=== PATIENT | male | born 1945 | race Hispanic/Latino ===

== ENCOUNTER 2018-12-03 20:06 | Inpatient (IN) | payer MEDICARE, MEDICAID ==
[~2018-12-03 20:06] MED LIST: ISOVUE-370 76%-LOCM 1 ML ONE
[2018-12-03] MEDS ORDERED: methylPREDNISolone Sod Succ/PF 125 MG/2 ML VIAL ONE (20:30)
[2018-12-03] MEDS ORDERED: Piperacillin/Tazobactam 4.5 GM VIAL ONE (20:30)
[2018-12-03 20:39] LABS: Base Excess-Venous 2.8 mmol/L (0 (+/- 2.5)); Bicarbonate (HCO3v) 27.8 mmol/L (22.0-29.0); Calcium, Ionized 1.08 mmol/L (1.12-1.32); Hemoglobin - Calc 15.5 g/dL (12.0-18.0); Potassium 4.4 mmol/L (3.4-4.7); T. Carbon Dioxide 29.2 mmol/L (1.0-85.0); pH (Venous) 7.419 (7.35-7.45); vO2 Saturation-calc 62.3 % (94-98)
--- NOTE | 2018-12-03 20:45 | RAD ---
AP VIEW CHEST: 12/03/18 HISTORY: Dyspnea. AP view chest is obtained on 12/03/18. Comparison made to previous exam from 11/29/04. AP view chest demonstrates the lungs to be well aerated. No evidence of active intrathoracic disease seen. No evidence of effusions, pneumonia or pneumothorax seen. IMPRESSION: Unremarkable AP view chest. POS: [facility]
[2018-12-03 20:50] LABS: Mean Corpuscular HGB CONC 34.5 g/dL (32.0-36.0); Mean Corpuscular Hemoglobin 34.7 pg (27.0-31.0); RBC Distribution Width 13.7 % (11.5-14.5); Red Blood Cell (RBC) Count 4.61 mill/uL (4.70-6.10)
[2018-12-03 21:05] LABS: #Lymphocytes 0.8 thou/uL (1.20-3.40); #Monocytes 0.8 thou/uL (0.11-0.59); #Neutrophils 7.3 thou/uL (1.40-6.50); %Basophils 0.4 % (0.0-1.0); %Eosinophils 0.2 % (0.0-10.0); %Lymphocytes 8.5 % (21.0-51.0); %Monocytes 9.1 % (0.0-10.0); %Neutrophils 81.7 % (42.0-75.0); Mean Platelet Volume 7.1 fL (7.4-10.4); Platelet Count 83 thou/uL (130-400); Platelet Morphology Comment Appears Decreased
[2018-12-03 21:08] LABS: ALT (SGPT) 36 U/L (8-55); AST (SGOT) 46 U/L (5-34); Albumin 3.8 g/dL (3.4-4.8); Alkaline Phosphatase 110 U/L (40-150); Anion Gap 12 mmol/L (10-20); BUN (Urea Nitrogen) 11 mg/dL (8.4-25.7); Bilirubin, Total 2.9 mg/dL (0.2-1.2); Calc. Creatinine Clearance 0 mL/min (70-130); Calcium 9.4 mg/dL (7.8-10.44); Carbon Dioxide 27 mmol/L (23-31); Chloride 101 mmol/L (98-107); Estimated GFR-MDRD Greater than 90; Globulin 3.3 g/dL (2.4-3.5); Glucose 109 mg/dL (83-110); Lipase 59 U/L (8-78); Potassium 4.3 mmol/L (3.5-5.1); Protein, Total 7.1 g/dL (5.8-8.1); Sodium 136 mmol/L (136-145)
[2018-12-03 21:29] LABS: CKMB 0.7 ng/mL (0-6.6)
--- NOTE | 2018-12-03 22:13 | CT ---
CONTRAST ENHANCED CT IMAGES ABDOMEN AND PELVIS 12/03/18 HISTORY: Shortness of breath. Abdominal pain. Contrast enhanced CT images of the abdomen and pelvis is obtained. Comparison made to exam from . CT images demonstrate atrophy and nodularity of the liver compatible with cirrhosis. Marked splenomeg nazario is seen. The spleen has three dimensional measurements of 7.9 x 18.8 x 15.4 cm. The pancreas is unremarkable. Adrenal glands and kidneys are unremarkable. There is abdominal aortic stent graft in place. The inner lumen of the stent is patent. Flow is seen in the SMA, celiac and renal arteries. No definite evidence of endovascular stent graft leak is seen. The right and left common iliac artery stent limbs are patent. The external and internal iliac arteries bilaterally are patent. No dilated loops of small bowel seen. There is abnormal thickening in the cecum and ascending colon c oncerning for colitis. Descending and sigmoid colonic diverticulosis is also present. Cortical hypodense areas seen in both kidneys compatible with renal cysts. IMPRESSION: 1. Splenomegaly with cirrhosis. 2. Abnormal thickening of the proximal colon compatible with colitis. POS: [facility]
[2018-12-03] MEDS ORDERED: Morphine 4 MG/ML VIAL ONE (22:21)
[2018-12-03] MEDS ORDERED: Ondansetron PF 4 MG/2 ML Vial ONE (22:21)
[2018-12-03 23:00] LABS: Bilirubin Negative (Negative); Blood, Urine Moderate (Negative); Clarity CLEAR (Clear); Glucose, Urine (Dipstick) Negative (Negative); Leukocyte Negative (Negative); Nitrite Negative (Negative); Protein, Urine (Dipstick) Negative (Neg-Trace)
[2018-12-03 23:01] LABS: Bacteria/HPF None Seen HPF (None Seen); Hyaline Casts/LPF 0-3 HYALINE CAST LPF (0-3 Hyaline); Pathc Cast-AUWi Flag 0.14 (0-2.49); Squamous Epithelial None Seen HPF (0-3); WBC/HPF 0-3 HPF (0-3)
[2018-12-03 23:04] LABS: Specific Gravity, Urine 1.048 (1.002-1.036)
[2018-12-04 00:16] LABS: Troponin I 0.022 ng/mL (< 0.028)
[2018-12-04 00:51] VITALS: BMI 29.4
[2018-12-04] MEDS ORDERED: Morphine 4 MG/ML VIAL SLOW IVP PRN (01:55)
[2018-12-04] MEDS ORDERED: HYDROcodone/Acetaminophen 5/325 mg Tablet PO PRN (01:56)
[2018-12-04] MEDS ORDERED: Acetaminophen 325 MG TAB PO PRN (01:56)
[2018-12-04] MEDS ORDERED: hydrALAZINE 20 MG/ML VIAL SLOW IVP PRN (01:58)
[2018-12-04] MEDS ORDERED: Dextrose 50% Abboject 50 ML SYRINGE IVP PRN (02:00)
[2018-12-04] MEDS ORDERED: Sodium Chloride 0.9% 1,000 ML IV SCH (02:00)
[2018-12-04] MEDS ORDERED: Dextrose 5% in Water 1,000 ML IV PRN (02:00)
[2018-12-04] MEDS: Vancomycin HCl 1.5 GM in Sodium Chloride 0.9% 250 ML 300 ML IVPB SCH ×2 (02:24→15:21)
[2018-12-04 02:48] LABS: #Lymphocytes 0.4 thou/uL (1.20-3.40); #Monocytes 0.1 thou/uL (0.11-0.59); #Neutrophils 6.8 thou/uL (1.40-6.50); %Eosinophils 0.1 % (0.0-10.0); %Lymphocytes 5.3 % (21.0-51.0); %Monocytes 1.1 % (0.0-10.0); %Neutrophils 93.5 % (42.0-75.0); Hemoglobin 14.8 g/dL (14.0-18.0); Mean Corpuscular HGB CONC 34.2 g/dL (32.0-36.0); Mean Corpuscular Hemoglobin 34.6 pg (27.0-31.0); Mean Platelet Volume 7.1 fL (7.4-10.4); Platelet Count 66 thou/uL (130-400); RBC Distribution Width 13.5 % (11.5-14.5); Red Blood Cell (RBC) Count 4.27 mill/uL (4.70-6.10); White Blood Cell (WBC) Count 7.3 thou/uL (4.8-10.8)
--- NOTE | 2018-12-04 03:33 | HP ---
PRIMARY CARE PHYSICIAN: Dr. Diaz. CHIEF COMPLAINT: Shortness of breath and abdominal pain. HISTORY OF PRESENT ILLNESS: The patient is a 73-year-old male with past medical history of diabetes, hypertension, COPD, and diverticulitis, who presents to the emergency department for worsening of his abdominal pain and shortness of breath. The patient's shortness of breath has been going on for number of years due to his COPD but for the past few weeks, it has been worse. The patient reports that he uses Symbicort [employer] as needed at home. The patient uses oxygen almost half of the time during the day. The patient denies being on steroid recently. The patient reports that the recently at outside hospital, he was being treated for a stomach infection for which he was taking levofloxacin and Augmentin. The patient reports that his abdominal pain is mainly left sided, but at this point, it is well controlled. The patient was accompanied by his . The patient denies that he is currently smoking. He has not smoked for a number of periods. The patient denies any history of heart problems. PAST MEDICAL HISTORY: 1. Diabetes. 2. Hypertension. 3. High cholesterol. 4. Cardiac stents. PAST SURGICAL HISTORY: Stomach surgery, unable to specify what kind of surgery. SOCIAL HISTORY: . Denies alcohol. Ex-smoker and illicit drugs. ALLERGIES: NO KNOWN ALLERGIES FOR DRUGS. MEDICATIONS: He is on; 1. Lisinopril. 2. Pravastatin. 3. Metformin. 4. Levaquin. 5. Augmentin. FAMILY HISTORY: Mother had heart problems. PHYSICAL EXAMINATION: VITAL SIGNS: Blood pressure 158/69, respiratory rate 24, temperature 98 Fahrenheit, pulse 87, and O2 sat 93% on 2 L nasal cannula. GENERAL: Alert and oriented. HEAD: Minor bruise noted on the forehead. The patient reported that he got this bruise while a tool fell on his head. He denied any loss of consciousness. Eyes, equal and reactive to light. ENT: Normal pharynx. Oral examination normal. NECK: No lymphadenopathy or JVD noted. RESPIRATORY: Bilateral scattered expiratory wheezes noted. CARDIOVASCULAR: Regular rate and rhythm. No murmur, rubs, or gallops. ABDOMEN: Soft. Bowel sounds positive, discomfort with a palpitations of left upper quadrant and left lower quadrant, otherwise physical examination within normal limit. EXTREMITIES: No edema noted. NEUROLOGICAL: Alert and oriented. PSYCHIATRIC: No mood disorders noted. SKIN: Abrasion and well-healed wound noted on the forehead. REVIEW OF SYSTEMS: CONSTITUTIONAL: Negative for fever or chills. EYES: Negative for vision changes. HEENT: Negative for swelling in the legs or dysphagia. CARDIOVASCULAR: Negative for chest pain. RESPIRATORY: Positive for shortness of breath. : Negative for dysuria. GI: Positive for abdominal pain. MUSCULOSKELETAL: Negative for lower extremity edema. SKIN: No rashes. NEUROLOGICAL: No loss of consciousness noted. IMAGING STUDY: 1. CT of abdomen positive for colitis. 2. Chest x-ray negative for acute abnormality. 3. EKG negative for ST segment elevation. LABORATORY DATA: Labs reviewed. CBC is significant for platelets of 83, otherwise within normal limits. BNP within normal limits. T.bili 2.9. Troponin 0.03, otherwise labs unremarkable. ASSESSMENT/PLAN: 1. Colitis, likely unresolved colitis from previous episode. The patient was treated with Levofloxacin and Augmentin without resolution. We will start vancomycin and zosyn, clear liquid diet, advance as tolerated, pain control medications p.r.n., nausea control medications p.r.n., cultures. 2. Chronic obstructive pulmonary disease exacerbation. The patient was treated with Solu-Medrol in the ER and also was given DuoNebs. The patient uses oxygen at home. Continue DuoNeb p.r.n., prednisone 40 mg 4 more doses. DuoNebs p.r.n. Continue O2. RT to assess and treat. 3. Thrombocytopenia, likely due to cirrhosis. Avoid pharmacological DVT prophylaxis. We will only use SCDs. 4. Hyperbilirubinemia, likely due to cirrhosis. The patient did not seem to be in acute exacerbation at this point. We will continue to monitor clinically, AM LFTs 5. Hypertension. Continue home medications plus p.r.n. hydralazine. 6. Coronary artery disease. Continue pravastatin and will not start aspirin at this point given thrombocytopenia. 7. Diabetes. We will hold metformin at this point. SSI low-scale. Hypoglycemia protocol. 8. Normal saline 50 mL per hour for 1 day. 9. PT/OT. 10. Deep venous thrombosis prophylaxis, SCD. 11. Code status, full code. 12. Medical [id number], . 13. Cirrhosis noted on the CT scan. The patient is not in acute exacerbation at this point. LFTs in the morning, ultrasound of liver and acute hepatitis panel. Job ID: [id number] MTDD
[2018-12-04 03:56] LABS: ALT (SGPT) 34 U/L (8-55); AST (SGOT) 38 U/L (5-34); Albumin 3.6 g/dL (3.4-4.8); Alkaline Phosphatase 96 U/L (40-150); Anion Gap 12 mmol/L (10-20); BUN (Urea Nitrogen) 16 mg/dL (8.4-25.7); Bilirubin, Total 2.3 mg/dL (0.2-1.2); Calc. Creatinine Clearance 101 mL/min (70-130); Calcium 8.8 mg/dL (7.8-10.44); Carbon Dioxide 26 mmol/L (23-31); Chloride 102 mmol/L (98-107); Estimated GFR-MDRD Greater than 90; Glucose 261 mg/dL (83-110); Potassium 4.2 mmol/L (3.5-5.1); Protein, Total 6.4 g/dL (5.8-8.1); Sodium 136 mmol/L (136-145)
[2018-12-04 03:57] LABS: Troponin I 0.015 ng/mL (< 0.028)
[2018-12-04 04:16] LABS: HBCM Index 0.05 S/CO (0-0.79); HBSAg Index 0.28 S/CO (0-0.99); Hep A IgM AB Non-Reactive (NonReactive); Hep A IgM S/CO 0.14 S/CO (0-0.79); Hep B Surf Ag Non-Reactive S/CO (NonReactive); Hep C IgG Ab Non-Reactive (NonReactive); Hep C Index 0.09 S/CO (0-0.79); Hepatitis B Core IgM Abs Non-Reactive (NonReactive)
[2018-12-04 04:29] LABS: Bilirubin, Direct 1.2 mg/dL (0.1-0.3)
[2018-12-04] MEDS: Piperacillin/Tazobactam 3.375 GM in Sodium Chloride 0.9% 100 ML IVPB SCH ×3 (05:49→21:02)
[2018-12-04] MEDS: HumaLOG 300 UNITS/3 ML VIAL SC PRN ×3 (06:00→18:17)
[2018-12-04] MEDS: Mometasone/Formoterol 120 PUFF INHALER INH SCH (06:51)
[2018-12-04] MEDS: predniSONE 20 MG TAB PO SCH (09:31)
[2018-12-04] MEDS: Lisinopril 20 MG TAB PO SCH (09:31)
--- NOTE | 2018-12-04 10:23 | PDOC.PN ---
- Subjective Encounter Start Date: 12/04/18 Encounter Start Time: 10:21 Feeling better overall. Breathing is improved. Denies any new abdominal symptoms. He does have some chronic diffuse abdominal symptoms with low grade discomfort for years. Breathing hard makes it worse. Reports some urinary incontinence at times with SOB and with exertion. Had a colonoscopy in 2004. Has nebs at home and does use them. Does not have a Pulmonolgist. - Objective Vital Signs & Weight: Vital Signs (12 hours) Temp Pulse Resp BP BP Pulse Ox 12/04/18 09:31 170/72 H 12/04/18 07:46 98.2 F 70 22 H 170/72 H 95 12/04/18 06:56 95 12/04/18 06:51 69 16 95 12/04/18 02:13 98.0 F 80 22 H 159/70 H 100 12/04/18 00:22 98.0 F 87 24 H 158/69 H 93 L Weight Weight 193 lb 9.6 oz I&O: 12/03/18 12/04/18 12/05/18 06:59 06:59 06:59 Intake Total 490 100 Output Total 250 Balance 240 100 Result Diagrams: 12/04/18 02:32 12/04/18 02:32 Additional Labs: Accuchecks 12/04/18 05:51 POC Glucose 266 H Phys Exam - Physical Examination Constitutional: NAD Respiratory: no rales, no rhonchi Diminished BS throughout. Basilar wheezes. Cardiovascular: RRR, no significant murmur, no rub Gastrointestinal: soft Mild diffusely tender. No localization. Musculoskeletal: no edema Psychiatric: normal affect, A&O x 3 Deviation from normal: Lesion right forehead lesion. (Had injury, getting better) Dx/Plan (1) COPD (chronic obstructive pulmonary disease) Status: Acute (2) Diabetes mellitus Code(s): E11.9 - TYPE 2 DIABETES MELLITUS WITHOUT COMPLICATIONS Status: Acute (3) Hypertension Code(s): I10 - ESSENTIAL (PRIMARY) HYPERTENSION Status: Acute (4) HLD (hyperlipidemia) Code(s): E78.5 - HYPERLIPIDEMIA, UNSPECIFIED Status: Acute (5) Colitis Code(s): K52.9 - NONINFECTIVE GASTROENTERITIS AND COLITIS, UNSPECIFIED Status : Acute (6) Cirrhosis Code(s): K74.60 - UNSPECIFIED CIRRHOSIS OF LIVER Status: Acute (7) Splenomegaly Code(s): R16.1 - SPLENOMEGALY, NOT ELSEWHERE CLASSIFIED Status: Acute - Plan * Appears to be primarily having issues with the COPD. Will consult Pulm. Doing better today for sure. COntinue nebs and steroids. * Has evidence of colitis on CT, but does not have any symptoms. No pain, fever or diarrhea. On abx now. Will likely not need to stay on those. * Consult GI given the findings of CT and the cirrhosis, although it appears to be stable. Has hx of EtOH.
[2018-12-04] MEDS ORDERED: Cyclopentolate 1% Opth Drop 2 ML BOT ONE (12:07)
[2018-12-04] MEDS ORDERED: Phenylephrine 2.5% Ophth Soln 5 ML BOT ONE (12:08)
[2018-12-04] MEDS ORDERED: ALPRAZolam 0.25 MG TAB PO SCH (17:45)
[2018-12-04] MEDS: Atorvastatin Calcium 10 MG TAB PO SCH (20:52)
--- NOTE | 2018-12-05 04:58 | CON ---
DATE OF CONSULTATION: 12/04/2018 SERVICE: Pulmonary Medicine. REASON FOR CONSULT: Chronic lung disease. HISTORY OF PRESENT ILLNESS: The patient is a 73-year-old male with past medical history significant for chronic lung disease. So far as he is aware, his trouble started about 7 or 8 years ago. 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 He got exposed to a lot of sand. He got very violently sick and since then, his breathing has been off. He has had a slow progressive increase in shortness of breath over the past 7 years. Over the last week, however, he ended up with increasing cough and congestion, he was having green sputum which is typically white. He was not having any fevers or chills or night sweats. He has had a 50 pounds weight loss over the past year. He was also having increasing abdominal swelling, and very tender belly. This has been present for several months now. It is not a hard pain, or a sharp pain. It is really more of an exquisite sensitivity to the touch. He has not had any changes in his bowel movements. He denies having any fevers, diarrhea, or constipation. He does not have any hot, red, swollen joints or arthralgias. He does note having bad reflux disease. He has been getting much worse over the past couple of months. PAST MEDICAL HISTORY: 1. Type 2 diabetes mellitus. 2. Hypertension. 3. Dyslipidemia. 4. Chronic hypoxic respiratory failure, on home oxygen. 5. COPD. 6. Diverticulosis with history of diverticulitis. 7. Coronary artery disease with history of PCI. PAST SURGICAL HISTORY: Stomach surgery, not clear on what type. SOCIAL HISTORY: He has a 40 pack-year history of smoking. He smoked on and off from point where he was 7 until he was 49 years old. He stopped at that point roughly 20 years ago. He denies any alcohol or illicit drug use. He is . He has no exposure to chemicals, dust, asbestos, or tuberculosis outside of that one event when he was working with his brother 8 years ago. FAMILY HISTORY: Noncontributory. He denies any family history of lung cancers or lung diseases. ALLERGIES: NO KNOWN DRUG ALLERGIES. MEDICATIONS: List of the patient's inpatient medications were reviewed. No specific adjustments were made at this point. REVIEW OF SYSTEMS: General, head, ears, eyes, nose, throat, cardiovascular, respiratory, GI, , musculoskeletal, neurologic, and skin is negative except as mentioned in the HPI. PHYSICAL EXAMINATION: VITAL SIGNS: Afebrile, pulse 77, blood pressure 194/91, respirations 23, saturation 96% on 2 L nasal cannula. GENERAL: The patient is awake and alert, in no apparent distress. LUNGS: Reduced air entry with a prolonged expiratory phase. Both wheezing and dependent crackles are noted. There are no rhonchi. HEART: Normal rate. Regular. ABDOMEN: Soft. No tenderness to palpation is really noted. He does have shifting dullness. He does not have any rebound or guarding, and bowel sounds are present. MUSCULOSKELETAL: No cyanosis or clubbing. There is trace to 1+ pitting in the bilateral lower extremities. NEUROLOGIC: Grossly nonfocal. LABORATORY DATA: WBC 7.3, hemoglobin 14.8, platelets 66,000 and downtrending. pH 7.4, pCO2 43, PO2 32 on a VBG. Basic metabolic profile and liver function studies are essentially unremarkable. His total bilirubin however is 2.3. AST is minimally elevated, but downtrending at 38. His BNP is slightly elevated at 157. Urinalysis is unremarkable. Beta hydroxybutyric acid, and hepatitis serologies are all negative. Respiratory cultures are unremarkable to date. Many white blood cells were identified, but there were very few organisms otherwise seen, 5-10 epithelial cells were collected. Influenza A and B are unremarkable. Urine culture, and blood cultures x2 are negative to date. IMAGIN. CT of the abdomen and pelvis demonstrates splenomegaly and findings consistent with cirrhosis. Central bronchiectasis is evident. There is interstitial prominence throughout the bilateral lung gaffney and they seem to be a little bit worse at the left base compared to the right. There is very subtle findings consistent with possible emphysema. 2. Chest x-ray demonstrates prominence in interstitium. This is displayed more clearly in the bibasilar region. Cardiac silhouette is slender. There is a little contour to the bilateral diaphragm. ASSESSMENT: 1. [id number] hypoxic respiratory failure. 2. Chronic obstructive pulmonary disease with acute exacerbation. 3. Cirrhosis, minimally decompensated. DISCUSSION AND PLAN: We will introduce some spironolactone, and Lasix. We will diurese the patient until he gets little closer to euvolemia. This is likely complicating his very chronic lung disease. The clubbing is interesting in the bilateral fingers. Hypoxemia associated with COPD does not create these findings. As such, I am interested in whether or not he may have some degree of interstitial process or malignancy. We will continue on antibiotics, nebulized medications, and steroids for the time being. In the outpatient setting, once his lungs are optimized, we will be interested in pursuing pulmonary function studies and advanced imaging studies of the lungs to see whether or not there is any merit to this idea. He is feeling better at this point, so we are going to continue our current course of action. Pulmonary Critical Care will continue to follow along while he remains inhouse. 70 minutes have been devoted to this patient in various activities. I personally reviewed all imaging studies and laboratory data noted within this document. For fifty percent of this time, I was interacting with the patient at the bedside or coordinating care with the care team. For the remainder of the time I was immediately available to the patient in the hospital unit. Job ID: [id number] [facility] H[facility]ITALL[facility]awn
[2018-12-05] MEDS: Piperacillin/Tazobactam 3.375 GM in Sodium Chloride 0.9% 100 ML IVPB SCH ×3 (05:48→21:06)
--- NOTE | 2018-12-05 05:55 | CON ---
DATE OF CONSULTATION: 12/04/2018 CHIEF COMPLAINT: Trouble breathing. HISTORY OF PRESENT ILLNESS: Mr. Oropeza is a 73-year-old man who came to the hospital with shortness of breath. He has COPD, has been on home oxygen and recently has taken steroids and antibiotics for that. During the evaluation in the emergency room, he did report chronic lower abdominal pain. He has been having some aching of right lower quadrant abdominal discomfort for the last 8 months or so. He states that he had trouble having bowel movements a few years ago and he had some type of surgical procedure that help that. He had presented with left lower quadrant pain prior to that. He has had no vomiting. He has had some nausea yesterday, which is new. He had a large normal bowel movement yesterday morning and then 1 liquidy bowel movement yesterday afternoon. He has had no blood in the stool. No black stools. While he was in the ER, he had a CT scan that showed some thickening in the cecum and ascending colon. He had colonoscopy by Dr. Gilbert in 2004 with a tubulovillous adenoma removed at that time. States that he had a followup colonoscopy 4 to 5 years ago in [place], which he states was normal. He was diagnosed with cirrhosis of the liver a few years ago in [place], but is unaware of the cause of the cirrhosis. PAST MEDICAL HISTORY: COPD on home oxygen, cirrhosis of the liver, diabetes mellitus, hypertension, hyperlipidemia, coronary artery disease, status post stent. PAST SURGICAL HISTORY: Aortic stent for abdominal aortic aneurysm. He has had some type of abdominal surgery. This sounds like it was laparoscopic, but it is unclear what this might have been. He has had a colon polyp resected previously. FAMILY HISTORY: Negative for GI malignancy or cirrhosis. SOCIAL HISTORY: He quit smoking years ago. He quit alcohol 11 years ago. He drank 12 pack a week prior to that, and denies more significant use. ALLERGIES: NO KNOWN DRUG ALLERGIES. MEDICATIONS: Prior to admission, 1. Lisinopril. 2. Pravastatin. 3. Metformin. 4. Levofloxacin. 5. Augmentin. REVIEW OF SYSTEMS: Negative x10 systems reviewed except as stated in history of present illness. PHYSICAL EXAMINATION: VITAL SIGNS: Temperature 97.7, pulse 77, blood pressure 194/91. GENERAL: He is in no acute distress. Alert and oriented x3. HEENT: Eyes have no scleral icterus. Oropharynx is clear without lesions. No cervical or supraclavicular lymphadenopathy. LUNGS: Clear to auscultation bilaterally. HEART: Regular rate and rhythm without murmur. LUNGS: Bilateral expiratory diffuse wheezes. ABDOMEN: Soft, nontender, and nondistended. Bowel sounds are present. EXTREMITIES: No lower extremity edema. LABORATORY DATA: White blood cell count 7.3, hemoglobin 14.8, platelets 66. Creatinine 0.8, bilirubin 2.3, AST 38, ALT 34, alkaline phosphatase 96, albumin 3.6, lipase 59. Hepatitis C antibody is negative. Hepatitis B surface antigen is negative. Hepatitis B core IgM is negative. Hepatitis A IgM is negative. IMPRESSION: 1. Chronic lower abdominal pain. He has no significant tenderness on exam now, and he states his pain is really unchanged from baseline over the last several months. He did have 1 liquidy stool yesterday and the CT scan showed some thickening in the ascending and cecum. He does not appear to have an acute process at this time. However, it is possible that he could have infectious colitis or even ischemic colitis. If he has any further bowel movements or diarrhea, we will run stool studies on that. 2. Cirrhosis of the liver. The cause of this is not yet determined. RECOMMENDATIONS: 1. We will send additional labs to evaluate other causes of liver disease. Viral hepatitis acute panel is negative. He may have more significant alcohol use in the past as a source for the cirrhosis. 2. He should eventually undergo upper endoscopy for varices screening. Also, colonoscopy for evaluation of the thickening in the right colon would be indicated. Given that he is admitted with worsening respiratory symptoms and has recently been on steroids for this. We will delay endoscopy and this can be done when his lung status is optimized. That can also potentially be done as an outpatient. 3. Check alpha fetoprotein for hepatoma screening. He did have CT of the abdomen and pelvis. However, this is not specifically for timing of contrast for liver lesion, so I will request an ultrasound on the liver as well. 4. He should be vaccinated for hepatitis A and hepatitis B if he is not immune. We will check labs to check immunity now. Job ID: [id number]
[2018-12-05 06:45] LABS: Hep B Surf AB Non-Reactive (NonReactive)
[2018-12-05] MEDS: Mometasone/Formoterol 120 PUFF INHALER INH SCH (07:20)
[2018-12-05] MEDS: Spironolactone 25 MG TAB PO SCH (08:07)
[2018-12-05] MEDS: Furosemide 40 MG TAB PO SCH (08:07)
[2018-12-05] MEDS: Lisinopril 20 MG TAB PO SCH (08:07)
[2018-12-05] MEDS: predniSONE 20 MG TAB PO SCH (08:07)
--- NOTE | 2018-12-05 08:25 | ULT ---
HEPATIC ULTRASOUND WITH DUPLEX EVALUATION: Date: 12/05/18 INDICATION: Evaluate for hepatoma. TECHNIQUE: Cruz scale, color Doppler, and duplex evaluation was performed of the liver. Sonographic evaluation w as also performed of the aorta, kidneys, and spleen. COMPARISON: Prior CT of the abdomen and pelvis dated 12/03/18. FINDINGS: The liver demonstrates a cirrhotic morphology. There is appropriate hepatopetal flow within the hepat ic vasculature. Gallbladder is surgically absent. Common bile duct measures 7.6 mm. Pancreas is largely obscured. Visualized aspects of the abdominal aorta appear within normal limits. Visualized IVC appears within normal limits. Right kidney measures 12.7 cm in length. Left kidney measures 13.5 cm. There are bilateral renal cyst s. The right renal cyst measures 1.4 cm. The left renal cyst measures 1.9 cm. The spleen is enlarged, measuring 15.4 cm. IMPRESSION: 1. Cirrhotic morphology of the liver. No focal hepatic lesion is identified sonographically. 2. Appropriate hepatopetal flow within hepatic vasculature. 3. Findings of portal hypertension and splenomegaly. 4. Bilateral renal cysts. 5. Cholecystectomy. POS: [facility]
[2018-12-05] MEDS: HumaLOG 300 UNITS/3 ML VIAL SC PRN ×2 (12:04→17:33)
[2018-12-05 16:17] LABS: EliA Vaculitis New Method **** NEW METHOD ****; Mitochondrial Ab Less than 0.5 U/mL (<4 Negative)
[2018-12-05] MEDS ORDERED: Sodium Chloride 0.65% Nasal 44 ML BOT EA NARE PRN (16:18)
--- NOTE | 2018-12-05 16:42 | PRG ---
DATE OF SERVICE: 12/05/2018 SERVICE: Pulmonary Medicine. INTERVAL HISTORY: The patient is doing fine from respiratory standpoint. Breathing comfortably. No complaints of nausea, vomiting, fevers, chills, or shortness of breath. He has actually improved his breathing quite a bit over last several hours. His appetite is coming back, he feels like he has more room in his stomach. PHYSICAL EXAMINATION: VITAL SIGNS: Afebrile. Pulse 71, blood pressure 142/74, respirations 18, and saturation 93% on 2 L nasal cannula. GENERAL: The patient is awake and alert, in no apparent distress. LUNGS: Decent air entry. This has actually improved compared to yesterday. Rhonchi and crackles are both present. There is a prolonged expiratory phase, but a little bit of polyphonic wheezing. Again, he is moving much better air today and so these adventitious sounds do not alarm me. HEART: Normal rate, regular. ABDOMEN: Softer today. Bowel sounds are present. No rebound or guarding. MUSCULOSKELETAL: No cyanosis or clubbing. No pitting in the bilateral lower extremities. NEUROLOGIC: Grossly nonfocal. LABORATORY DATA: WBC 7.3, hemoglobin 14.8, platelets 66,000 and downtrending. BNP was previously 156. Fecal lactoferrin was negative. C diff antigen and toxin are unremarkable. There is no Giardia or Cryptosporidium identified. Campylobacter and shiga toxins are unremarkable. Urine culture, blood cultures x2, and influenza A and B are all unremarkable. IMAGING: Ultrasound of the abdomen demonstrates a cirrhotic morphology of the liver with no focal hepatic lesion identified sonographically. Good flow is present. Portal hypertension and splenomegaly are noted. Bilateral renal cysts are present. The patient is status post cholecystectomy. ASSESSMENT: 1. Acute on chronic hypoxic respiratory failure. 2. Chronic obstructive pulmonary disease with acute exacerbation. 3. Cirrhosis, minimally decompensated, but improving. DISCUSSION AND PLAN: I will continue antibiotics, nebulized medications, and steroids. I will have the patient follow up with me in the outpatient setting to delineate his underlying lung issue. He does have clubbing of the fingers, which does not characteristically occur with hypoxemia associated with COPD. There is an interstitial prominence that is present on the CT of the abdomen and pelvis, which may need further investigation. Pulmonary Critical Care will continue to follow while he remains in-house, but ultimately, we will have him follow up with me in the outpatient setting. Job ID: [id number]
--- NOTE | 2018-12-05 19:07 | PRG ---
DATE OF SERVICE: 12/05/2018 SUBJECTIVE: Mr. Oropeza has tolerated his clear liquid diet well. He has had no further abdominal pain other than soreness to the touch in his lower abdomen, which is chronic. OBJECTIVE: VITAL SIGNS: Temperature 98.0, pulse 71, blood pressure 142/74, oxygen saturation 93% on 2L. GENERAL: He is in no acute distress. He has expiratory wheezes. HEART: Regular rate and rhythm without murmur. ABDOMEN: Soft. Mild tenderness in the lower abdomen without guarding. Bowel sounds are present. EXTREMITIES: No lower extremity edema. IMPRESSION: 1. Cirrhosis of the liver. This is a chronic condition and I did send some lab workup to evaluate further for underlying etiology. Ultrasound is negative for liver mass. Alpha fetoprotein is pending. He is negative for hepatitis C or B. Smooth muscle antibody. And mitochondrial antibody are negative. This can be evaluated further as an outpatient. 2. Lower abdominal pain. There was some question of thickening of the right colon on CT when he was admitted. Consideration for ischemic colitis can be given. However, he has had no ongoing diarrhea or blood in the stool. No evidence of significant infectious colitis at this point. This could have been an area of nondistention. 3. Primary reason for admission is respiratory. He is being followed by Pulmonology for that. RECOMMENDATIONS: 1. Await labs that have been sent including alpha fetoprotein. 2. Advance his diet to low-salt diet. 3. EGD and colonoscopy could be considered as an outpatient in the future for variceal screening and follow up on the colon thickening. He reports negative colonoscopy 4 or 5 years ago in [place]. Job ID: [id number]
[2018-12-05] MEDS: Atorvastatin Calcium 10 MG TAB PO SCH (21:05)
--- NOTE | 2018-12-05 22:12 | PDOC.PN ---
- Subjective Encounter Start Date: 12/05/18 Encounter Start Time: 10:35 Had some decompensation yesterday with his breathing. Says he has not fully recovered to his baseline. Still feels a little SOB. - Objective Vital Signs & Weight: Vital Signs (12 hours) Temp Pulse Pulse Pulse Resp BP BP 12/05/18 15:46 98 F 71 18 12/05/18 14:44 91 92 184/93 H 200/84 H 12/05/18 11:21 97.8 F 87 20 BP Pulse Ox 12/05/18 15:46 142/74 H 93 L 12/05/18 14:44 12/05/18 11:21 171/74 H 88 L Weight Weight 197 lb 4.8 oz I&O: 12/04/18 12/05/18 12/06/18 06:59 06:59 06:59 Intake Total 490 2420 1680 Output Total 250 400 Balance 240 2020 1680 Result Diagrams: 12/04/18 02:32 12/04/18 02:32 Additional Labs: Accuchecks 12/05/18 12/05/18 12/05/18 20:11 16:09 11:21 POC Glucose 181 H 244 H 238 H 12/05/18 05:13 POC Glucose 122 H Phys Exam - Physical Examination Constitutional: NAD Respiratory: no wheezing, no rales, no rhonchi Generally diminished. Cardiovascular: RRR, no significant murmur Gastrointestinal: soft, non-tender, no distention Musculoskeletal: no edema Clubbing of fingers. Dx/Plan (1) COPD (chronic obstructive pulmonary disease) Status: Acute (2) Diabetes mellitus Code(s): E11.9 - TYPE 2 DIABETES MELLITUS WITHOUT COMPLICATIONS Status: Acute (3) Hypertension Code(s): I10 - ESSENTIAL (PRIMARY) HYPERTENSION Status: Acute (4) HLD (hyperlipidemia) Code(s): E78.5 - HYPERLIPIDEMIA, UNSPECIFIED Status: Acute (5) Colitis Code(s): K52.9 - NONINFECTIVE GASTROENTERITIS AND COLITIS, UNSPECIFIED Status : Acute (6) Cirrhosis Code(s): K74.60 - UNSPECIFIED CIRRHOSIS OF LIVER Status: Acute (7) Splenomegaly Code(s): R16.1 - SPLENOMEGALY, NOT ELSEWHERE CLASSIFIED Status: Acute - Plan * GI consulted. * Pulmonary consulted. * Continue nebs, steroids, abx. * GI stable for now. Will need outpatient followup. .
[2018-12-06] MEDS: Piperacillin/Tazobactam 3.375 GM in Sodium Chloride 0.9% 100 ML IVPB SCH (06:05)
[2018-12-06 07:26] LABS: Hepatitis A Total ABS Positive (Negative)
[2018-12-06] MEDS: Mometasone/Formoterol 120 PUFF INHALER INH SCH (07:53)
[2018-12-06] MEDS: Furosemide 40 MG TAB PO SCH (08:04)
[2018-12-06] MEDS: Lisinopril 20 MG TAB PO SCH (08:04)
[2018-12-06] MEDS: predniSONE 20 MG TAB PO SCH (08:04)
[2018-12-06] MEDS: Spironolactone 25 MG TAB PO SCH (08:07)
[2018-12-06 09:24] LABS: #Eosinphils 0.1 thou/uL (0.0-0.7); #Lymphocytes 1.8 thou/uL (1.20-3.40); #Monocytes 0.9 thou/uL (0.11-0.59); #Neutrophils 8.7 thou/uL (1.40-6.50); %Basophils 0.1 % (0.0-1.0); %Eosinophils 0.5 % (0.0-10.0); %Lymphocytes 15.3 % (21.0-51.0); %Monocytes 7.5 % (0.0-10.0); %Neutrophils 76.5 % (42.0-75.0); Hemoglobin 15.9 g/dL (14.0-18.0); Mean Corpuscular HGB CONC 33.3 g/dL (32.0-36.0); Mean Corpuscular Hemoglobin 33.9 pg (27.0-31.0); Mean Platelet Volume 7.4 fL (7.4-10.4); Platelet Count 103 thou/uL (130-400); RBC Distribution Width 13.7 % (11.5-14.5); Red Blood Cell (RBC) Count 4.69 mill/uL (4.70-6.10); White Blood Cell (WBC) Count 11.4 thou/uL (4.8-10.8)
[2018-12-06 09:31] LABS: Anion Gap 12 mmol/L (10-20); BUN (Urea Nitrogen) 19 mg/dL (8.4-25.7); Calc. Creatinine Clearance 122 mL/min (70-130); Carbon Dioxide 31 mmol/L (23-31); Chloride 102 mmol/L (98-107); Estimated GFR-MDRD Greater than 90; Glucose 116 mg/dL (83-110); Potassium 4.1 mmol/L (3.5-5.1); Sodium 141 mmol/L (136-145)
[2018-12-06 11:11] VITALS: BP 164/77; TEMP 99
[2018-12-07 12:08] LABS: Alpha-1-Antitrypsin 148 mg/dL (90-200)
[2018-12-08 15:17] LABS: Smooth Muscle Total ABS 18 Units (0-19)
== END 2018-12-06 11:59 | disposition home or self-care (01) | DRG 190 ==
LOC: ERS 20:06 → 2SW 22:10 → OBSVTOIN 12-04 17:26 → 2NO 12-04 20:21
PROVIDERS: ADMIT Family Medicine; ATTEND Family Medicine
DX: J44.1 Chronic obstructive pulmonary disease with (acute) exacerbation (principal); J96.21 Acute and chronic respiratory failure with hypoxia; K74.60 Unspecified cirrhosis of liver; E11.9 Type 2 diabetes mellitus without complications; I10 Essential (primary) hypertension; D69.6 Thrombocytopenia, unspecified; K52.9 Noninfective gastroenteritis and colitis, unspecified; E78.5 Hyperlipidemia, unspecified; E80.6 Other disorders of bilirubin metabolism; I25.10 Atherosclerotic heart disease of native coronary artery without angina pectoris; R16.1 Splenomegaly, not elsewhere classified; Z98.61 Coronary angioplasty status; Z98.890 Other specified postprocedural states; Z87.891 Personal history of nicotine dependence; Z79.84 Long term (current) use of oral hypoglycemic drugs; Z79.2 Long term (current) use of antibiotics
CPT/HCPCS: 36415; 36416; 71045; 74177; 76705; 80048; 80053; 80074; 80076; 81003; 81015; 82010; 82103; 82105; 82330; 82553; 82803; 83516; 83605; 83630; 83690; 83880; 84484; 85025; 86706; 86708; 87040; 87045; 87046; 87070; 87086; 87205; 87328; 87329; 87449; 87804; 87899; 89220; 93005; 94640; 96365; 96366; 96375; J0360; J2270; J2405; J2543; J2930; J3370; J7050; J7506; J7620; Q9966

== ENCOUNTER 2019-05-01 07:27 | Day surgery (SDC) | payer MEDICARE, MEDICAID ==
[2019-04-29 11:20] VITALS: BMI 30.4
--- NOTE | 2019-05-01 08:50 | HP ---
HISTORY OF PRESENT ILLNESS: Mr. Noah Oropeza is a 73-year-old male with abdominal pain, constipation, anemia. The patient has had abdominal pain, which is very nonspecific over the last several weeks. The pain is more diffuse than localized. He has had mild nausea, but no vomiting. He is also found to have anemia. The patient had been treated by Dr. Craven for liver cirrhosis a few years ago. The patient was using alcohol before, but again he claims that he does not drink very much. The patient was found to have anemia and pancytopenia. The patient has no history of hematochezia or any melena. The patient complained of abdominal pain and also some dysphagia. The patient comes for EGD because of abdominal pain, also for colonoscopy because of anemia and also for colon cancer screening. ALLERGIES: NONE. SOCIAL HISTORY: The patient is a former smoker. He also drank alcohol in the past, MEDICAL ILLNESS: 1. Hypertension. 2. Hyperlipidemia. 3. Diabetes. 4. Anemia. 5. COPD. 6. Liver cirrhosis. 7. History of AAA with stent placement in the past. 8. Also history of coronary artery disease . PHYSICAL EXAMINATION: GENERAL: He is obese, appears comfortable. VITAL SIGNS: Pulse is 76 and blood pressure is 150/80. HEENT: Conjunctivae are clear. NECK: Supple. No adenitis or thyromegaly noted. CARDIOVASCULAR: First and second heart sounds heard. LUNGS: Clear to auscultation. ABDOMEN: Soft to touch. No organomegaly. No tenderness. No masses. Bowel sounds are normal. EXTREMITIES: Reveal no edema. ADMITTING DIAGNOSES: Abdominal pain, anemia. PLAN: EGD and colonoscopy for colon cancer screening. Job ID: [id number] [facility]
--- NOTE | 2019-05-01 13:39 | OP ---
DATE OF PROCEDURE: 05/01/2019 PROCEDURES PERFORMED: Esophagogastroduodenoscopy with biopsy. PREOPERATIVE DIAGNOSES: Abdominal pain, history of liver cirrhosis. POSTOPERATIVE DIAGNOSES: 1. Long column of 4+ esophageal varices. 2. Portal hypertensive gastropathy. 3. Gastritis. 4. Normal duodenum. DESCRIPTION OF PROCEDURE: The patient was placed on his left lateral position and was given sedation by Anesthesia Department. A Pentax videogastroscope under direct vision passed down in the oropharynx, past the GE junction into the stomach and subsequently into the descending duodenum. The patient had one long column of esophageal varices 4+. GE junction, no pathology. The patient has diffuse hypertensive portal gastropathy. In the fundus, no gastric varices seen. The gastric antrum shows mucosal hyperemia from erosion. Biopsy obtained of the antrum and gastric body. The duodenal bulb, descending duodenum no pathology. The stomach decompressed and the scope removed. DISCHARGE PLANNING: This is a 73-year-old Latin-[place] male came for EGD because of abdominal pain with liver cirrhosis and for colonoscopy for colon cancer screening. He underwent colonoscopy and biopsy. The EGD showed 4+ esophageal varices. He also had portal hypertensive gastropathy. He underwent biopsy of gastric antrum and gastric body. DISCHARGE RECOMMENDATIONS: 1. Resume medicine as before. 2. We will consider starting him on beta pardeep to reduce variceal bleeding. 3. If he is agreeable for variceal banding, I will brink him back in the next month or so. Job ID: [id number]
--- NOTE | 2019-05-01 13:53 | OP ---
DATE OF PROCEDURE: 05/01/2019 PREOPERATIVE DIAGNOSIS: A 73-year-old [place] male, undergoing colonoscopy for colon cancer screening. POSTOPERATIVE DIAGNOSES: 1. Hemorrhoids. 2. Sessile polyp, sigmoid colon, biopsied. 3. Sigmoid diverticular disease. OPERATIVE PROCEDURE: Colonoscopy with biopsy. DESCRIPTION OF PROCEDURE: The patient was placed on his left lateral position and was given sedation by Anesthesia Department. A rectal exam was done before the scope was advanced into the rectum. No lesions felt on rectal exam. A Pentax video colonoscope was introduced into the rectum and advanced all the way to the cecum. The prep was good. The patient's sigmoid colon was somewhat tortuous with an acute angulation. It was difficult to advance the scope through the area into the proximal colon. Once this area was get through, the scope easily advanced into the cecum without difficulty. The appendicular opening, ileocecal wall, and cecum, no pathology. Withdrawal of scope from the cecum, ascending colon, hepatic flexure, transverse colon, splenic flexure, no pathology. The descending colon, no pathology. The sigmoid colon showed scattered diverticula. There was a sessile polyp over the sigmoid colon, biopsy obtained. Rectum showed hemorrhoids. Job ID: [id number]
[2019-05-01] MEDS ORDERED: PROPOFOL 200 MG/20 ML VIAL ONE (15:10)
== END 2019-05-01 14:00 | disposition home or self-care (01) ==
LOC: SDC 07:27
PROVIDERS: ATTEND Internal Medicine Gastroenterology
PROC: 0DB68ZX Excision of Stomach, Via Natural or Artificial Opening Endoscopic, Diagnostic (ICD-10-PCS; principal; 2019-05-01)
PROC: 0DB78ZX Excision of Stomach, Pylorus, Via Natural or Artificial Opening Endoscopic, Diagnostic (ICD-10-PCS; 2019-05-01)
PROC: 0DBN8ZX Excision of Sigmoid Colon, Via Natural or Artificial Opening Endoscopic, Diagnostic (ICD-10-PCS; 2019-05-01)
DX: K63.5 Polyp of colon (principal); K29.50 Unspecified chronic gastritis without bleeding; K57.30 Diverticulosis of large intestine without perforation or abscess without bleeding; K64.9 Unspecified hemorrhoids; K74.60 Unspecified cirrhosis of liver; I85.10 Secondary esophageal varices without bleeding; K76.6 Portal hypertension; K31.89 Other diseases of stomach and duodenum; K63.89 Other specified diseases of intestine; D50.9 Iron deficiency anemia, unspecified; I10 Essential (primary) hypertension; E78.5 Hyperlipidemia, unspecified; E11.9 Type 2 diabetes mellitus without complications; I25.10 Atherosclerotic heart disease of native coronary artery without angina pectoris; J44.9 Chronic obstructive pulmonary disease, unspecified; Z87.891 Personal history of nicotine dependence; Z79.2 Long term (current) use of antibiotics; Z79.899 Other long term (current) drug therapy
CPT/HCPCS: 88305; 88312; J2704

== ENCOUNTER 2019-07-04 09:36 | Inpatient (IN) | payer MEDICARE, MEDICAID ==
[2019-07-04 10:31] LABS: #Lymphocytes 0.9 thou/uL (1.20-3.40); #Monocytes 0.9 thou/uL (0.11-0.59); #Neutrophils 14.8 thou/uL (1.40-6.50); %Basophils 0.1 % (0.0-1.0); %Eosinophils 0.1 % (0.0-10.0); %Lymphocytes 5.6 % (21.0-51.0); %Monocytes 5.1 % (0.0-10.0); Hemoglobin 13.9 g/dL (14.0-18.0); Mean Corpuscular Hemoglobin 33.7 pg (27.0-31.0); Mean Corpuscular Volume 96.4 fL (78.0-98.0); Mean Platelet Volume 6.9 fL (7.4-10.4); Platelet Count 95 thou/uL (130-400); RBC Distribution Width 13.8 % (11.5-14.5); Red Blood Cell (RBC) Count 4.13 mill/uL (4.70-6.10); White Blood Cell (WBC) Count 16.6 thou/uL (4.8-10.8)
[2019-07-04] MEDS ORDERED: ISOVUE-370 76%-LOCM 1 ML ONE (10:34)
[2019-07-04 10:48] LABS: ALT (SGPT) 22 U/L (8-55); AST (SGOT) 28 U/L (5-34); Albumin 3.1 g/dL (3.4-4.8); Alkaline Phosphatase 99 U/L (40-150); Anion Gap 12 mmol/L (10-20); BUN (Urea Nitrogen) 15 mg/dL (8.4-25.7); Bilirubin, Total 3.1 mg/dL (0.2-1.2); Calc. Creatinine Clearance 0 mL/min (70-130); Calcium 8.5 mg/dL (7.8-10.44); Carbon Dioxide 24 mmol/L (23-31); Chloride 106 mmol/L (98-107); Estimated GFR-MDRD Greater than 90; Globulin 2.7 g/dL (2.4-3.5); Glucose 88 mg/dL (83-110); Lipase 26 U/L (8-78); Potassium 3.9 mmol/L (3.5-5.1); Protein, Total 5.8 g/dL (5.8-8.1); Sodium 138 mmol/L (136-145)
[2019-07-04 11:19] LABS: Bilirubin Negative (Negative); Blood, Urine 3+ (Negative); Clarity Turbid (Clear); Glucose, Urine (Dipstick) Normal (Negative); Leukocyte Negative Leu/uL (Negative); Nitrite Negative (Negative); Protein, Urine (Dipstick) Greater than 600 mg/dL (Neg-Trace); RBC/HPF Greater than 50 HPF (0-3); Squamous Epithelial None Seen HPF (0-3)
--- NOTE | 2019-07-04 11:20 | CT ---
CT ABDOMEN AND PELVIS WITH CONTRAST: HISTORY: Abdominal pain and swelling. COMPARISON: Ultrasound abdomen 06/30/[address] abdomen and pelvis 12/03/2018. FINDINGS: Mild scarring of the lung bases. No pericardial effusion. There is cirrhotic nodular appearance to the liver with progressive ascites and third spacing of fluid. The ascitic fluid has greatly increas ed from the comparison examination. The spleen is enlarged. Splenic varices are present. Pancreas is unremarkable. Adrenal glands are unremarkable. Multiple cysts of the right kidney and left kidney. The portal vein is patent. Celiac trunk and superior mesenteric arteries are patent. There is an ao rtobiiliac graft in place. Congestive changes are present throughout the transverse and ascending colon. No free intraperitonea l gas. Wall thickening of the cecum and cecal apex has progressed from the comparison exam. No retroperitoneal periaortic adenopathy. The aortobiiliac graft is patent. Mild degenerative changes of the lumbar spine. IMPRESSION: 1. Hepatosplenomegaly and hepatic cirrhosis. 2. Progressive moderate ascites and third spacing of fluid. 3. Congestive changes of the small bowel and colon likely from hepatic dysfunction. 4. Progressive submucosal edema/thickening of the cecum and cecal apex from the comparison examinati on. Colonoscopic evaluation is recommended to evaluate for underlying mass. 5. Small fluid-containing left direct inguinal hernia. 6. Small right indirect fluid-containing indirect hernia and fat-containing right direct inguinal he rnia. 7. Patent aortobiiliac graft. 8. The interpolar renal right hypodensity measures greater than fluid attenuation not definitely a c yst and [address] or MRI renal protocol recommended in 3-6 months. POS: HOME
[2019-07-04 11:24] LABS: Bacteria/HPF None Seen HPF (None Seen)
[2019-07-04 11:54] LABS: HBCM Index 0.05 S/CO (0-0.79); HBSAg Index 0.18 S/CO (0-0.99); HIV (1/2) Antibody/Antigen Non-Reactive (NonReactive); HIV 1/2 INDEX 0.17 S/CO (<1.00); Hep A IgM AB Non-Reactive (NonReactive); Hep A IgM S/CO 0.12 S/CO (0-0.79); Hep B Surf Ag Non-Reactive S/CO (NonReactive); Hep C IgG Ab Non-Reactive (NonReactive); Hep C Index 0.08 S/CO (0-0.79); Hepatitis B Core IgM Abs Non-Reactive (NonReactive)
[2019-07-04] MEDS ORDERED: Lidocaine 1% w/Epinephrine 1:100K 20 ML VIAL ONE (13:18)
[2019-07-04] MEDS ORDERED: Piperacillin/Tazobactam 4.5 GM VIAL ONE (13:20)
[2019-07-04 13:49] LABS: INR-International Normal Ratio 1.3; Prothrombin Time 16.4 SEC (12.0-14.7)
[2019-07-04] MEDS ORDERED: Acetaminophen 325 MG TAB PO PRN ×2 (15:26→15:29)
[2019-07-04] MEDS ORDERED: Ondansetron PF 4 MG/2 ML Vial IVP PRN (15:26)
[2019-07-04] MEDS ORDERED: Ondansetron ODT 4 MG TAB SL PRN (15:26)
[2019-07-04] MEDS ORDERED: Dextrose 50% Abboject 50 ML SYRINGE SLOW IVP PRN (15:29)
[2019-07-04] MEDS ORDERED: HumaLOG 300 UNITS/3 ML VIAL SC PRN ×2 (15:29)
[2019-07-04] MEDS ORDERED: Dextrose 5% in Water 1,000 ML IV PRN (15:29)
[2019-07-04 15:33] VITALS: BMI 29.9
[2019-07-04 16:26] LABS: Fluid, Glucose 109 mg/dL (Not Available); Fluid, LDH 67 U/L (Not Available); Fluid, Protein Less than 1.0 g/dL (Not Available)
[2019-07-04 16:28] LABS: INR-International Normal Ratio 1.4; Prothrombin Time 17.5 SEC (12.0-14.7)
[2019-07-04 16:29] LABS: RBC Count-Automated (BF) 149 /cumm; WBC/Nucleated-Auto (BF) 544 uL
[2019-07-04 16:32] LABS: BF Color Yellow; Body Fluid Source Peritoneal Fluid; Clarity Cloudy/Turbid (Clear); Tube # EDTA
[2019-07-04 16:41] LABS: BF Segmented Neutrophils 69 %; Cell Count Non Hematic 23 %; Eosinophils 1 %; Lymphocytes 6 %
[2019-07-04] MEDS ORDERED: Albumin 25% 25 GM/100 ML BOT IVPB SCH ×2 (17:00→19:00)
[2019-07-04] MEDS ORDERED: cefTRIAXone\\ROCEPHIN 2 GM in Sodium Chloride 0.9% 100 ML IVPB SCH (17:30)
--- NOTE | 2019-07-04 18:58 | CON ---
DATE OF CONSULTATION: 07/04/2019 REQUESTING PHYSICIAN: Mookie Odell MD REASON FOR CONSULTATION: Abdominal pain. HISTORY OF PRESENT ILLNESS: Noah Oropeza is a 73-year-old man with a history of COPD and chronic cirrhosis, which until recently has been clinically compensated. He was seen by Dr. Gilbert back in 2004, noted to have a tubulovillous adenoma, which was removed from the colon. He reports having had a negative EGD and colonoscopy about 5 years ago in [place]. He was seen by Dr. Raymond here in November of this year with complaints of persistent lower abdominal pain. This was possibly secondary to constipation, and his laxatives were increased. The patient thereafter saw Dr. Nath, and he had an EGD and a colonoscopy done on 05/01/2019. The EGD demonstrated large esophageal varices, diffuse portal hypertensive gastropathy, and some erosive gastritis in the antrum. Colonoscopy demonstrated sigmoid diverticulosis, a single small sigmoid polyp that was biopsied and hemorrhoids. The sigmoid polyp came back as normal colonic mucosa. Gastric biopsies showed chronic gastritis, but were negative for H pylori. Dr. Nath had recommended a nonselective beta pardeep to be started and consideration of possible esophageal banding in the future, but the patient never started on a beta-pardeep. He never followed up with Dr. Nath. He has lactulose and MiraLAX, which he takes as needed at home, but he has not taken any in the past several days. He came into the ER today with worsening abdominal pain and distention particularly over the past week. He has had subjective fevers at home. His last bowel movement was 2 to 3 days ago, but he has not taken any of his laxatives. Upon presentation, he was febrile to 100.3 and was found to have larger ascites than before. He underwent paracentesis in the ER. I am not sure how much fluid was removed, but the patient says it was at least a couple bottles and he feels a lot better. Fluid studies were sent which were mostly pending. He was started on vancomycin and Zosyn. He is hemodynamically stable here on the floor. Abdominal pain is a bit improved. REVIEW OF SYSTEMS: Full review of systems including constitutional, head, eyes, ears, nose, throat, GI, , cardiovascular, respiratory, musculoskeletal, neurologic systems is negative except as noted in the HPI. PAST MEDICAL HISTORY: COPD, coronary artery disease with stent placement, diabetes, hypertension, hyperlipidemia, colon polyp in 2005, large esophageal varices in April 2019, diffuse portal hypertensive gastropathy in April 2019, erosive gastritis in the antrum in April 2019. Last colonoscopy in April 2019, showing sigmoid diverticulosis and hemorrhoids. SOCIAL HISTORY: No smoking, alcohol, or drug use. He used to drink alcohol. FAMILY HISTORY: Noncontributory. ALLERGIES: NO KNOWN DRUG ALLERGIES. OUTPATIENT MEDICATIONS: 1. Lactulose p.r.n. 2. MiraLAX p.r.n. 3. Spiriva. 4. Combivent. 5. Lisinopril. 6. Metformin. PHYSICAL EXAMINATION: VITAL SIGNS: Temperature 99.1, pulse 75, blood pressure 158/70, and 94% oxygen saturation on room air. GENERAL: No acute distress, lying in bed comfortably. SKIN: No jaundice. No rashes were palpable. Eyes, no scleral icterus. Extraocular movements intact. ENT: Mucous membranes moist. No oral lesions. LYMPH: No submandibular or supraclavicular lymphadenopathy. THYROID: Nontender to palpation. HEART: Regular rate and rhythm. LUNGS: Clear to auscultation bilaterally. ABDOMEN: Distended with ascites, not tense, soft. Bowel sounds present. Generalized tenderness to palpation. No guarding, rebound, or tenderness. EXTREMITIES: Trace pretibial edema bilaterally. NEUROLOGIC: Cranial nerves 2 through 12 intact bilaterally. No asterixis. LABORATORY STUDIES: WBC elevated at 16.6, hemoglobin 13.9, platelets 95. INR 1.4. Ammonia 27, lipase 26, BUN 15, creatinine 0.68, total bilirubin 3.1, alkaline phosphatase 99, AST 28, ALT 22, albumin 3.1. Initial ascites fluid studies returned showing 544 wbc's and 149 rbc's. Neutrophil percentage is pending. Fluid glucose 109, fluid total protein less than 1. I ordered fluid albumin. Fluid LDH 67. Viral hepatitis serologies negative. IMAGING STUDIES: Abdominal ultrasound from 06/30/2019, showed cirrhosis, some minimal ascites. He had splenomegaly and absent gallbladder. CT of the abdomen and pelvis from earlier today shows progressive moderate ascites, cirrhosis, splenomegaly, some wall thickening in the cecal area, which is likely secondary to congestion. He has three small hernias and an [id number] graft. ASSESSMENT AND PLAN: 1. Cirrhosis. This is demonstrated on imaging. He has mild coagulopathy. He has thrombocytopenia, esophageal varices, and now progressive ascites with initial paracentesis performed earlier today. I know viral hepatitis serologies are negative. He had some autoimmune markers, which were negative earlier this year, likely secondary to fatty liver disease. 2. Ascites, now with probable spontaneous bacterial peritonitis. Note the ascites fluid wbc count is 544, neutrophil percentage is pending, but the presentation is certainly consistent with probable spontaneous bacterial peritonitis. He has been started on vancomycin and Zosyn. Should give albumin today as well. 3. Esophageal varices. These were demonstrated on EGD with Dr. Nath, a couple of months ago. The patient never started on a nonselective beta pardeep. I think this should be started. I have ordered nadolol 20 mg at bedtime to be started now. This should be titrated in the future to resting heart rate of 55% to 60%. 4. Gastritis. The patient was found to have portal hypertensive gastropathy and chronic gastritis on his recent EGD. He is not on any acid suppression. We will go ahead and start Protonix 40 mg daily. This might hopefully medicate some of his abdominal discomfort and poor appetite. 5. Chronic constipation. The patient has lactulose and MiraLAX to take p.r.n. and has not taken any over the past few days. If constipation becomes a worsening issue, the lactulose could be increased. The patient will probably need to be started on diuretic therapy prior to hospital discharge as well. Thank you for the consultation. Please call anytime with questions or concerns. Job ID: [id number]
[2019-07-04] MEDS: Albumin 25% 25 GM/100 ML BOT IVPB SCH (19:21)
[2019-07-04] MEDS ORDERED: Piperacillin/Tazobactam 3.375 GM in Sodium Chloride 0.9% 100 ML IVPB SCH ×2 (20:00)
[2019-07-04] MEDS ORDERED: Nadolol 40 MG TAB PO SCH (21:00)
[2019-07-04] MEDS ORDERED: Vancomycin HCl 1 GM in Premix Bag 1 BAG IVPB SCH (23:59)
[2019-07-05] MEDS: Albumin 25% 25 GM/100 ML BOT IVPB SCH ×3 (01:42→12:48)
[2019-07-05] MEDS: Piperacillin/Tazobactam 3.375 GM in Sodium Chloride 0.9% 100 ML IVPB SCH ×4 (03:56→21:14)
[2019-07-05] MEDS ORDERED: Polyethylene Glycol 3350 17 GM Packet PO PRN (09:32)
[2019-07-05] MEDS ORDERED: Ipratropium Bromide 2.5 ml Neb NEB PRN (09:47)
[2019-07-05 10:49] LABS: #Eosinphils 0.1 thou/uL (0.0-0.7); #Lymphocytes 0.9 thou/uL (1.20-3.40); #Monocytes 0.8 thou/uL (0.11-0.59); #Neutrophils 4.8 thou/uL (1.40-6.50); %Basophils 0.1 % (0.0-1.0); %Lymphocytes 13.7 % (21.0-51.0); %Monocytes 11.9 % (0.0-10.0); %Neutrophils 72.3 % (42.0-75.0); Hemoglobin 11.8 g/dL (14.0-18.0); Mean Corpuscular HGB CONC 34.8 g/dL (32.0-36.0); Mean Corpuscular Hemoglobin 34.4 pg (27.0-31.0); Mean Corpuscular Volume 98.6 fL (78.0-98.0); Mean Platelet Volume 7.5 fL (7.4-10.4); Platelet Count 69 thou/uL (130-400); RBC Distribution Width 13.6 % (11.5-14.5); Red Blood Cell (RBC) Count 3.45 mill/uL (4.70-6.10); White Blood Cell (WBC) Count 6.7 thou/uL (4.8-10.8)
[2019-07-05 10:56] LABS: Anion Gap 11 mmol/L (10-20); BUN (Urea Nitrogen) 18 mg/dL (8.4-25.7); Calc. Creatinine Clearance 108 mL/min (70-130); Calcium 8.5 mg/dL (7.8-10.44); Carbon Dioxide 24 mmol/L (23-31); Chloride 107 mmol/L (98-107); Estimated GFR-MDRD Greater than 90; Glucose 123 mg/dL (83-110); Potassium 3.7 mmol/L (3.5-5.1); Sodium 138 mmol/L (136-145)
--- NOTE | 2019-07-05 13:50 | PRG ---
DATE OF SERVICE: 07/05/2019 SUBJECTIVE: Mr. Oropeza says he is feeling a lot better. The abdominal pain is significantly improved. He is still distended with ascites. He still has a little bit of lightheadedness when he stands up. He has been eating well. He has been afebrile. OBJECTIVE: VITAL SIGNS: Temperature 98.2, pulse 64, blood pressure 143/73, and oxygen saturation 96% on room air. GENERAL: No acute distress. HEART: Regular rate and rhythm. LUNGS: Clear to auscultation bilaterally. ABDOMEN: Distended with ascites. Bowel sounds present. Soft, nontender to palpation throughout. EXTREMITIES: No peripheral edema. LABORATORY STUDIES: WBC down to 6.7, hemoglobin 11.8, and platelets 69. Sodium 138, potassium 3.7, BUN 18, creatinine 0.76, glucose 123, and calcium 8.5. Paracentesis fluid studies demonstrate 544 WBCs with 69% segmented neutrophils, so this does meet criteria for SBP. Viral hepatitis serologies negative. ASSESSMENT AND PLAN: 1. Spontaneous bacterial peritonitis. The patient's paracentesis fluid does meet criteria for spontaneous bacterial peritonitis. The presentation is also consistent. The patient is receiving IV Zosyn. This could be switched to Rocephin at the discretion of the Primary Service. We gave him albumin 100 g IV yesterday. We would give 50 g IV tomorrow. Continue antibiotic therapy for a 5-day course. Antibiotics could be transitioned to oral upon discharge. In addition, we would recommend spontaneous bacterial peritonitis prophylaxis going forward with ciprofloxacin 500 mg daily. 2. Ascites. At some point, the patient should get started on diuretics. Consider starting diuretics tomorrow. Lasix 20 mg daily and spironolactone 50 mg daily. 3. Esophageal varices. These were demonstrated on esophagogastroduodenoscopy with Dr. Nath a couple of months ago. The patient never started on a nonselective beta-pardeep. In the context of spontaneous bacterial peritonitis, we will await on this. However, I do think that the patient should get started on nadolol once this spontaneous bacterial peritonitis episode is resolved. 4. Gastritis. This was also demonstrated on his recent esophagogastroduodenoscopy with portal hypertensive gastropathy. We started Protonix 40 mg daily. Job ID: [id number]
--- NOTE | 2019-07-05 13:56 | PDOC.HOSPP ---
- Subjective Encounter Date: 07/05/19 Encounter Time: 13:54 Subjective: Mr. Oropeza was seen today in follow-up of abdominal pain. He says he feels better today, less abdominal pain. He is waiting to see if when he its better. - Objective Vital Signs & Weight: Vital Signs (12 hours) Temp Pulse Resp BP Pulse Ox 07/05/19 12:10 98.2 F 64 18 143/73 H 96 07/05/19 08:00 97.9 F 07/05/19 07:48 97.9 F 75 18 160/63 H 92 L 07/05/19 04:00 97.9 F 67 20 125/66 92 L Weight Weight 197 lb 6.4 oz I&O: 07/04/19 07/05/19 07/06/19 06:59 06:59 06:59 Intake Total 460 240 Output Total 1500 Balance -1040 240 Result Diagrams: 07/05/19 09:04 07/05/19 09:03 Additional Labs: Accuchecks 07/05/19 07/05/19 07/04/19 11:41 04:34 19:41 POC Glucose 102 94 116 H 07/04/19 16:24 POC Glucose 89 Hospitalist ROS - Medication Medications: Active Medications Generic Name Dose Route Start Last Admin Trade Name Freq PRN Reason Stop Dose Admin Piperacillin Sod/Tazobactam 100 mls @ 200 mls/hr 07/05/19 03:00 07/05/19 09: 03 Sod 3.375 gm/ Sodium Chloride IVPB 100 mls 0300,0900,1500,2100 SARAH Administration Pantoprazole Sodium 40 mg 07/05/19 09:00 07/05/19 09:04 Protonix PO 40 mg DAILY SARAH Administration - Exam Eye: PERRL, anicteric sclera Heart: RRR, no murmur, no gallops, no rubs, normal peripheral pulses Respiratory: CTAB, no wheezes, no rales, no ronchi, normal chest expansion, no tachypnea, normal percussion Gastrointestinal: soft, normal bowel sounds, no palpable masses, no hepatomegaly , no splenomegaly, distended (and tympanic to percussion) Extremities: no cyanosis, no clubbing, no edema Hosp A/P (1) Spontaneous bacterial peritonitis Code(s): K65.2 - SPONTANEOUS BACTERIAL PERITONITIS Status: Acute (2) COPD (chronic obstructive pulmonary disease) Status: Chronic (3) Cirrhosis Code(s): K74.60 - UNSPECIFIED CIRRHOSIS OF LIVER Status: Chronic (4) Diabetes mellitus Code(s): E11.9 - TYPE 2 DIABETES MELLITUS WITHOUT COMPLICATIONS Status: Chronic - Plan * Spontaneous Bacterial Peritonitis- continue Zosyn * Cirrhosis- Gi input appreciated * DM- blood glucose is stable * COPD- stable- continue beta-agonist inhalers, and Duonebs as needed * Await culture results, and possibly home tomorrow
[2019-07-05] MEDS: Mometasone/Formoterol 120 PUFF INHALER INH SCH (19:22)
[2019-07-05] MEDS ORDERED: LACTULOSE 20 GM PO SCH (21:00)
[2019-07-06] MEDS: Piperacillin/Tazobactam 3.375 GM in Sodium Chloride 0.9% 100 ML IVPB SCH ×4 (03:30→20:19)
[2019-07-06] MEDS: Mometasone/Formoterol 120 PUFF INHALER INH SCH ×2 (06:27→18:39)
--- NOTE | 2019-07-06 08:40 | HP ---
PRIMARY CARE PHYSICIAN: Dr. Diallo. CHIEF COMPLAINT: Abdominal pain and bloating. HISTORY OF PRESENT ILLNESS: Mr. Oropeza is a pleasant 73-year-old gentleman, who has a history of hypertension and diabetes. He also says he was diagnosed with cirrhosis many years ago. He says over the past few months, he has been noticing a slow increase in abdominal girth and he says that he also started having "a terrible pain" on his right side. He says that he also noted constipation off and on and says that lately in the last 3 days, he cannot eat. He says every time he eats, he gets extremely uncomfortable and notes that he has had some low-grade fever as well. He also notes some swelling in his legs and occasional nausea, but no vomiting. He says that occasionally he will see some blood in his stool, but it is only when he wipes and it is on the toilet paper, but not so much within the stool itself. He denies any melena or dark tarry stools, and as a result of his symptoms, he came to the ER for evaluation. He says that he had seen Dr. Nath, who had done an EGD a few months ago and just saw some portal gastropathy and some varices and had been told to come back within a month. However, he says his symptoms got so bad that he had to come to the ER instead. The patient had a CT scan of the abdomen and pelvis in the ER, which demonstrated some hepatosplenomegaly and evidence of cirrhosis and some moderate ascites and he is being admitted for further recommendations. REVIEW OF SYSTEMS: CONSTITUTIONAL: The patient admits to some fevers and chills, but no night sweats. No weight loss. He does admit to poor appetite. HEENT: No headaches, but he does have some dizziness primarily when standing and when he tries to move around, it will ryan after some time. No sore throat. No rhinorrhea. No neck pain. No adenopathy. PULMONARY: No hemoptysis. No cough. No wheezing. CARDIOVASCULAR: He denies any chest pain. He does have stable shortness of breath. No PND. No orthopnea. He does admit to increased lower extremity edema. GASTROINTESTINAL: As history of present illness. GENITOURINARY: No urinary frequency, hematuria, or hesitancy. MUSCULOSKELETAL: No muscle pains, weakness. No joint pains. NEUROLOGIC: No focal weakness or numbness. No seizures. PSYCHIATRIC: No symptoms of anxiety or depression. SKIN AND INTEGUMENT: No skin changes. No rashes. PAST MEDICAL HISTORY: Significant for diabetes mellitus type 2, hypertension, hypercholesterolemia, coronary artery disease, and cirrhosis. PAST SURGICAL HISTORY: He has had a cholecystectomy as well as a stent. ALLERGIES: NO KNOWN DRUG ALLERGIES. SOCIAL HISTORY: He is a nonsmoker and nondrinker. He is . He would like to be a full code. He denies any drug use. He is, however, former smoker and he formally used to drink up to six packs a day. FAMILY HISTORY: No history of any heritable diseases. CURRENT MEDICATIONS: Include, 1. Metformin 500 mg twice daily. 2. Generlac twice daily. 3. Lisinopril 40 mg daily. 4. ClearLax p.r.n. PHYSICAL EXAMINATION: GENERAL: He is alert and oriented. He appears to be in moderate distress due to increased abdominal girth. He is well developed and well nourished. VITAL SIGNS: Blood pressure was 156/71, heart rate 85, respiratory rate of 15, and temperature is 99.8. HEENT: Pupils are equal, round, and reactive. Extraocular muscles are intact. His sclerae are anicteric. Throat, there is no erythema, no exudates. He does have some whitish exudates on the tongue. Poor dentition. NECK: No adenopathy. No bruits. LUNGS: Clear with the exception of some basilar rales. CARDIOVASCULAR: He has normal S1 and S2. I did not appreciate an S3 or S4. No murmurs, clicks, or rubs. ABDOMEN: Distended. There is some mild right lower quadrant tenderness. There is no rebound, no guarding, no organomegaly. It is tympanic to percussion with some dullness in the flanks. EXTREMITIES: He has 1+ pitting edema, but no calf tenderness, no joint effusions. NEUROLOGIC: His muscle strength is 5/5 in both his upper and lower extremities. SKIN AND INTEGUMENT: There are no skin changes. No rash. LABORATORY DATA: Sodium 138, potassium 3.9, chloride is 106, CO2 is 24, BUN of 15, creatinine 0.68, glucose is 88, lactic acid 1.4, bilirubin 3.1. White blood cell count 16.6, hemoglobin 13.9, hematocrit is 39.8, and platelet count is 95. Serology for hepatitis A, B, and C are negative. He had a CT scan of the abdomen and pelvis demonstrating some moderate ascites, hepatosplenomegaly, and hepatic cirrhosis. ASSESSMENT: 1. This is a pleasant 73-year-old gentleman, who presents with progressive abdominal pain, increasing abdominal girth, and difficulty eating. He has history of cirrhosis, but has never had ascites as per the patient's history. Therefore, the abdominal pain could represent decompensated cirrhosis with possible spontaneous bacterial peritonitis. There is also some evidence of colitis by CT, but this could be related to third spacing in fluid. He will be admitted and started on empiric antibiotics. Blood and urine cultures have been obtained. I also spoke with the ER physician who will attempt to do a paracentesis so we can send this off for both diagnostic as well as therapeutic paracentesis. We will also consult Gastroenterology. 2. For diabetes mellitus, we will continue his home medications as well as a sliding scale insulin. 3. Hypertension. Again, start his home medications and have p.r.n. medications available as needed. Job ID: [id number]
[2019-07-06] MEDS ORDERED: Non-Formulary Item 1 EACH (Tiotropium Bromide [Spiriva Respimat] 2 INH) IH SCH (09:00)
[2019-07-06] MEDS ORDERED: Non-Formulary Item 1 EACH (Budesonide-Formoterol [Symbicort 160-4.5] 1 PUFF) INH SCH (09:00)
--- NOTE | 2019-07-06 17:29 | PDOC.HOSPP ---
- Subjective Encounter Date: 07/06/19 Encounter Time: 17:27 Subjective: Mr. Oropeza was seen today in follow-up of SBP. He notes dark colored urine. He has less abdominal pain. - Objective Vital Signs & Weight: Vital Signs (12 hours) Temp Pulse Resp BP BP Pulse Ox 07/06/19 13:34 159/72 H 07/06/19 12:00 97.9 F 65 20 183/74 H 95 07/06/19 08:49 94 L 07/06/19 07:34 98.0 F 68 18 169/76 H 94 L Weight Admit Weight 197 lb 6.4 oz Weight 197 lb 6.4 oz I&O: 07/05/19 07/06/19 07/07/19 06:59 06:59 06:59 Intake Total 460 1560 Output Total 1500 600 Balance -1040 960 Result Diagrams: 07/05/19 09:04 07/05/19 09:03 Additional Labs: Accuchecks 07/06/19 07/06/19 07/06/19 16:55 11:23 05:49 POC Glucose 118 H 97 133 H 07/05/19 19:59 POC Glucose 145 H Hospitalist ROS - Medication Medications: Active Medications Generic Name Dose Route Start Last Admin Trade Name Freq PRN Reason Stop Dose Admin Piperacillin Sod/Tazobactam 100 mls @ 200 mls/hr 07/05/19 03:00 07/06/19 15: 38 Sod 3.375 gm/ Sodium Chloride IVPB 100 mls 0300,0900,1500,2100 SARAH Administration Lactulose 20 gm 07/05/19 21:00 07/06/19 08:38 Lactulose PO 20 gm BID SARAH Administration Mometasone Furoate/Formoterol Fumar 2 puff 07/05/19 18:30 07/06/19 06:27 Dulera 200 Mcg/5 Mcg Inhaler INH Not Given BID-RT SARAH Pantoprazole Sodium 40 mg 07/05/19 09:00 07/06/19 08:38 Protonix PO 40 mg DAILY SARAH Administration Sodium Chloride 10 ml 07/05/19 21:00 07/06/19 08:42 Flush - Normal Saline IVF 10 ml Q12HR SARAH Administration - Exam Eye: PERRL, anicteric sclera Heart: RRR, no murmur, no gallops, no rubs, normal peripheral pulses Respiratory: CTAB, no wheezes, no rales, no ronchi, normal chest expansion Gastrointestinal: soft, non-tender, normal bowel sounds, no palpable masses, no hepatomegaly, distended Extremities: no cyanosis, no clubbing, no edema Hosp A/P (1) Spontaneous bacterial peritonitis Code(s): K65.2 - SPONTANEOUS BACTERIAL PERITONITIS Status: Acute (2) COPD (chronic obstructive pulmonary disease) Status: Chronic (3) Cirrhosis Code(s): K74.60 - UNSPECIFIED CIRRHOSIS OF LIVER Status: Chronic (4) Diabetes mellitus Code(s): E11.9 - TYPE 2 DIABETES MELLITUS WITHOUT COMPLICATIONS Status: Chronic - Plan * Spontaneous Bacterial Peritonitis- continue Zosyn * Cirrhosis- will start Lasix and Aldactone as recommended as well as Protonix * DM- blood glucose is stable * COPD- stable- continue beta-agonist inhalers, and Duonebs as needed * Home after completion of 5 days of Zosyn
[2019-07-06 19:19] LABS: Bacteria/HPF None Seen HPF (None Seen); Bilirubin Negative (Negative); Blood, Urine 3+ (Negative); Clarity Turbid (Clear); Glucose, Urine (Dipstick) Normal (Negative); Leukocyte 25 Leu/uL (Negative); Nitrite Negative (Negative); Protein, Urine (Dipstick) 300 mg/dL (Neg-Trace); RBC/HPF Greater than 50 HPF (0-3); Squamous Epithelial None Seen HPF (0-3); Urobilinogen Normal mg/dL (Less than 2)
[2019-07-07] MEDS: Piperacillin/Tazobactam 3.375 GM in Sodium Chloride 0.9% 100 ML IVPB SCH ×4 (02:59→20:33)
[2019-07-07 06:59] LABS: ALT (SGPT) 13 U/L (8-55); AST (SGOT) 18 U/L (5-34); Albumin 3.2 g/dL (3.4-4.8); Alkaline Phosphatase 79 U/L (40-150); Anion Gap 9 mmol/L (10-20); BUN (Urea Nitrogen) 15 mg/dL (8.4-25.7); Bilirubin, Total 1.9 mg/dL (0.2-1.2); Calc. Creatinine Clearance 117 mL/min (70-130); Calcium 8.5 mg/dL (7.8-10.44); Carbon Dioxide 26 mmol/L (23-31); Chloride 110 mmol/L (98-107); Estimated GFR-MDRD Greater than 90; Globulin 2.4 g/dL (2.4-3.5); Glucose 87 mg/dL (83-110); Potassium 3.9 mmol/L (3.5-5.1); Protein, Total 5.6 g/dL (5.8-8.1); Sodium 141 mmol/L (136-145)
[2019-07-07] MEDS: Mometasone/Formoterol 120 PUFF INHALER INH SCH ×2 (07:09→18:17)
[2019-07-07] MEDS: Furosemide 20 MG TAB PO SCH (08:29)
[2019-07-07] MEDS: Spironolactone 25 MG TAB PO SCH (08:29)
--- NOTE | 2019-07-07 09:07 | PDOC.HOSPP ---
- Subjective Encounter Date: 07/07/19 Encounter Time: 08:30 Subjective: Mr. Oropeza was seen today in follow up for SBP. He slept well overnight and does not have any abdominal pain today. He says the RLQ of his abdomen only hurts when pressing on it, otherwise he has no pain. He also noticed that his urine is getting case picker and less brown/red colored. He is still having diarrhea. He complains of some dizziness when standing up to go to the restroom. He denies confusion, shortness of breath or chest pain today. - Objective Vital Signs & Weight: Vital Signs (12 hours) Temp Pulse Resp BP BP Pulse Ox 07/07/19 07:31 98.1 F 75 20 160/76 H 94 L 07/07/19 04:00 98.1 F 65 16 167/80 H 96 07/07/19 00:00 98.1 F 69 18 170/74 H 93 L 07/06/19 22:07 97.9 F 72 18 163/63 H 94 L Weight Admit Weight 89.539 kg Weight 89.539 kg I&O: 07/06/19 07/07/19 07/08/19 06:59 06:59 06:59 Intake Total 1560 480 Output Total 600 Balance 960 480 Result Diagrams: 07/05/19 09:04 07/07/19 06:26 Additional Labs: Accuchecks 07/06/19 07/06/19 07/06/19 19:42 16:55 11:23 POC Glucose 157 H 118 H 97 Hospitalist ROS - Review of Systems Constitutional: denies: fever, chills ENT: denies: throat swelling Respiratory: denies: shortness of breath Cardiovascular: denies: chest pain Gastrointestinal: reports: diarrhea. denies: nausea, vomitting Genitourinary: denies: dysuria - Medication Medications: Active Medications Generic Name Dose Route Start Last Admin Trade Name Freq PRN Reason Stop Dose Admin Furosemide 20 mg 07/07/19 09:00 07/07/19 08:29 Lasix PO 20 mg DAILY SARAH Administration Piperacillin Sod/Tazobactam 100 mls @ 200 mls/hr 07/05/19 03:00 07/07/19 08: 29 Sod 3.375 gm/ Sodium Chloride IVPB 100 mls 0300,0900,1500,2100 SARAH Administration Lactulose 20 gm 07/05/19 21:00 07/07/19 08:28 Lactulose PO Not Given BID SARAH Mometasone Furoate/Formoterol Fumar 2 puff 07/05/19 18:30 07/07/19 07:09 Dulera 200 Mcg/5 Mcg Inhaler INH Not Given BID-RT SARAH Pantoprazole Sodium 40 mg 07/05/19 09:00 07/07/19 08:29 Protonix PO 40 mg DAILY SARAH Administration Sodium Chloride 10 ml 07/05/19 21:00 07/07/19 08:29 Flush - Normal Saline IVF 10 ml Q12HR SARAH Administration Spironolactone 50 mg 07/07/19 08:00 07/07/19 08:29 Aldactone PO 50 mg QAM-WM SARAH Administration - Exam General Appearance: NAD, awake alert Neck: supple, symmetric, no thyromegaly, no lymphadenopathy Heart: RRR, no murmur, no rubs Respiratory: CTAB, no wheezes, no rales, no ronchi Gastrointestinal - other findings: Distended. NABS. Tender to palpation in RLQ. No suprapubic tenderness. Extremeties - other findings: Mild clubbing. Skin: no lesions Hosp A/P (1) Spontaneous bacterial peritonitis Code(s): K65.2 - SPONTANEOUS BACTERIAL PERITONITIS Status: Acute (2) Hypertension Code(s): I10 - ESSENTIAL (PRIMARY) HYPERTENSION Status: Chronic (3) COPD (chronic obstructive pulmonary disease) Status: Chronic (4) Cirrhosis Code(s): K74.60 - UNSPECIFIED CIRRHOSIS OF LIVER Status: Chronic (5) Diabetes mellitus Code(s): E11.9 - TYPE 2 DIABETES MELLITUS WITHOUT COMPLICATIONS Status: Chronic - Plan Mr. Oropeza is a 73 y/o male with a PMH of cirhosis and spontaneous bacterial peritonitis. His abdominal pain is greater decreased from before admission, he is afebrile and does not have any changes in mental status. * SBP: Plan is to continue zosyn to completion of 5 day course. Once finished with zosyn, will send home on ciprofloxacin 500 mg daily for SBP prophylaxis. * Cirrhosis: Continue on lasix, spironolactone and pantoprazole. He had questions about etiology and course of illness. Patient counseled on necessary 6 month US and follow up with his PCP for his cirrhosis. * Diabetes Mellitus: Patient currently on metformin for his DM. His fasting blood glucose was 87 this am and is controlled. * COPD: Currently controlled with beta agonists and ipatropium PRN. * HTN: Patient is currently taking lisinopril 40 mg q daily for HTN. He has had elevated bp readings since admission. The lasix and spironolactone should also improve his BP. Plan is to monitor for improvement with additional medication.
--- NOTE | 2019-07-07 09:28 | PRG ---
DATE OF SERVICE: 07/06/2019 SUBJECTIVE: This is a 73-year-old male with chronic liver disease and ascites. The patient's EGD was done, which revealed esophageal varices a month ago. He also had a colonoscopy. He was seen by me a week ago in my office because of abdominal distention, bloating, constipation. The patient had an abdominal sonogram. Sonogram shows liver masses, but did show minimal ascites. Apparently , his ascites was uncomfortable and his abdomen got distended_. He came to the ER over the weekend. He had a paracentesis done and fluid does show SBP. He is on IV antibiotics. He is feeling better now. OBJECTIVE: GENERAL: He is obese, appears comfortable. VITAL SIGNS: Afebrile, pulse is _76, blood pressure is 116/70. HEENT: Conjunctivae clear. CARDIOVASCULAR SYSTEM: First and second heart sounds are normal. LUNGS: Clear to auscultation. ABDOMEN: Distended, but soft at this time. Abdomen is nontender. No organomegaly. No masses. Bowel sounds are normal. LABORATORY DATA: From today CBC; WBC 6700, hemoglobin 11.8, hematocrit 34. Glucose is 112. Today, lytes are actually normal. BUN is 18. CLINICAL IMPRESSION: 1. Liver cirrhosis. 2. Ascites. 3. Cellulitis. 4. Spontaneous bacterial peritonitis. 5. Chronic obstructive pulmonary disease. RECOMMENDATION: 1. Continue antibiotics. 2. Start the patient on antibiotics in the future. Job ID: [id number] MTDD
--- NOTE | 2019-07-07 16:11 | PDOC.HOSPP ---
- Subjective Encounter Date: 07/07/19 Encounter Time: 16:09 Subjective: Mr. Oropeza was seen today in follow-up of SBP. He does not have any new complaints. He says his urine is clearing up. - Objective Vital Signs & Weight: Vital Signs (12 hours) Temp Pulse Resp BP BP Pulse Ox 07/07/19 10:37 98.0 F 68 20 183/85 H 94 L 07/07/19 07:31 98.1 F 75 20 160/76 H 94 L Weight Admit Weight 197 lb 6.4 oz Weight 197 lb 6.4 oz I&O: 07/06/19 07/07/19 07/08/19 06:59 06:59 06:59 Intake Total 1560 480 Output Total 600 Balance 960 480 Result Diagrams: 07/05/19 09:04 07/07/19 06:26 Additional Labs: Accuchecks 07/07/19 07/07/19 07/06/19 10:37 04:33 19:42 POC Glucose 131 H 91 157 H 07/06/19 16:55 POC Glucose 118 H Hospitalist ROS - Medication Medications: Active Medications Generic Name Dose Route Start Last Admin Trade Name Freq PRN Reason Stop Dose Admin Furosemide 20 mg 07/07/19 09:00 07/07/19 08:29 Lasix PO 20 mg DAILY SARAH Administration Piperacillin Sod/Tazobactam 100 mls @ 200 mls/hr 07/05/19 03:00 07/07/19 14: 29 Sod 3.375 gm/ Sodium Chloride IVPB 100 mls 0300,0900,1500,2100 SARAH Administration Lactulose 20 gm 07/05/19 21:00 07/07/19 08:28 Lactulose PO Not Given BID SARAH Mometasone Furoate/Formoterol Fumar 2 puff 07/05/19 18:30 07/07/19 07:09 Dulera 200 Mcg/5 Mcg Inhaler INH Not Given BID-RT SARAH Pantoprazole Sodium 40 mg 07/05/19 09:00 07/07/19 08:29 Protonix PO 40 mg DAILY SARAH Administration Sodium Chloride 10 ml 07/05/19 21:00 07/07/19 08:29 Flush - Normal Saline IVF 10 ml Q12HR SARAH Administration Spironolactone 50 mg 07/07/19 08:00 07/07/19 08:29 Aldactone PO 50 mg QAM-WM SARAH Administration - Exam Eye: PERRL, anicteric sclera Heart: RRR, no murmur, no gallops, no rubs, normal peripheral pulses Respiratory: CTAB, no wheezes, no rales, no ronchi, normal chest expansion Gastrointestinal: soft, normal bowel sounds, no palpable masses, no splenomegaly , distended Extremities: no cyanosis, no clubbing, no edema, 2+ LE edema Skin: normal turgor, no lesions Hosp A/P (1) Spontaneous bacterial peritonitis Code(s): K65.2 - SPONTANEOUS BACTERIAL PERITONITIS Status: Acute (2) COPD (chronic obstructive pulmonary disease) Status: Chronic (3) Cirrhosis Code(s): K74.60 - UNSPECIFIED CIRRHOSIS OF LIVER Status: Chronic (4) Diabetes mellitus Code(s): E11.9 - TYPE 2 DIABETES MELLITUS WITHOUT COMPLICATIONS Status: Chronic - Plan * Spontaneous Bacterial Peritonitis- continue Zosyn * Cirrhosis- will start Lasix and Aldactone as recommended as well as Protonix * DM- blood glucose is stable * COPD- stable- continue beta-agonist inhalers, and Duonebs as needed * Hematuria- ? etiology- discussed with the patient- recommend out patient evaluation
[2019-07-08] MEDS: Piperacillin/Tazobactam 3.375 GM in Sodium Chloride 0.9% 100 ML IVPB SCH ×4 (02:28→20:51)
[2019-07-08] MEDS: Mometasone/Formoterol 120 PUFF INHALER INH SCH ×2 (06:55→17:58)
[2019-07-08] MEDS: Furosemide 20 MG TAB PO SCH (08:21)
[2019-07-08] MEDS: Spironolactone 25 MG TAB PO SCH (08:21)
--- NOTE | 2019-07-08 09:52 | PDOC.HOSPP ---
- Subjective Encounter Date: 07/08/19 Encounter Time: 09:00 Subjective: Mr. Oropeza was seen in follow up today for spontenous bacterial peritonitis. He says he feels good today, but is still noticing blood in his urine. His abdominal pain is still only with palpation on the RLQ. He has not been passing flatus and he is still having diarrhea (was given lactulose this AM). He did not take his home blood pressure medication (lisinopril) this morning. No chest pain or shortness of breath and no new complaints at this time. - Objective Vital Signs & Weight: Vital Signs (12 hours) Temp Pulse Resp BP Pulse Ox 07/08/19 08:31 94 L 07/08/19 08:02 97.9 F 70 16 170/79 H 94 L Weight Admit Weight 89.539 kg Weight 89.539 kg I&O: 07/07/19 07/08/19 07/09/19 06:59 06:59 06:59 Intake Total 480 2120 Output Total 300 400 Balance 180 1720 Result Diagrams: 07/05/19 09:04 07/07/19 06:26 Additional Labs: Accuchecks 07/08/19 07/07/19 07/07/19 04:51 19:25 16:11 POC Glucose 105 157 H 94 07/07/19 07/07/19 10:37 04:33 POC Glucose 131 H 91 Hospitalist ROS - Review of Systems Constitutional: denies: fever, chills Respiratory: denies: shortness of breath Cardiovascular: denies: chest pain Gastrointestinal: reports: abdominal pain (mild, in RLQ). denies: nausea, vomitting Genitourinary: reports: hematuria. denies: dysuria - Medication Medications: Active Medications Generic Name Dose Route Start Last Admin Trade Name Freq PRN Reason Stop Dose Admin Furosemide 20 mg 07/07/19 09:00 07/08/19 08:21 Lasix PO 20 mg DAILY SARAH Administration Piperacillin Sod/Tazobactam 100 mls @ 200 mls/hr 07/05/19 03:00 07/08/19 08: 22 Sod 3.375 gm/ Sodium Chloride IVPB 100 mls 0300,0900,1500,2100 SARAH Administration Lactulose 20 gm 07/05/19 21:00 07/08/19 08:21 Lactulose PO 20 gm BID SARAH Administration Mometasone Furoate/Formoterol Fumar 2 puff 07/05/19 18:30 07/08/19 06:55 Dulera 200 Mcg/5 Mcg Inhaler INH Not Given BID-RT SARAH Pantoprazole Sodium 40 mg 07/05/19 09:00 07/08/19 08:21 Protonix PO 40 mg DAILY SARAH Administration Sodium Chloride 10 ml 07/05/19 21:00 07/08/19 08:22 Flush - Normal Saline IVF 10 ml Q12HR SARAH Administration Spironolactone 50 mg 07/07/19 08:00 07/08/19 08:21 Aldactone PO 50 mg QAM-WM SARAH Administration - Exam General Appearance: NAD, awake alert Eye: PERRL, anicteric sclera ENT: moist mucosa Neck: supple, no lymphadenopathy Heart: RRR, no murmur, no rubs Respiratory: CTAB, no wheezes, no rales, no ronchi Gastrointestinal: tender to palpation (tender in RLQ to palpation), distended Gastrointestinal - other findings: Normoactive bowel sounds Extremities: no edema Hosp A/P (1) Spontaneous bacterial peritonitis Code(s): K65.2 - SPONTANEOUS BACTERIAL PERITONITIS Status: Acute (2) Hypertension Code(s): I10 - ESSENTIAL (PRIMARY) HYPERTENSION Status: Chronic (3) COPD (chronic obstructive pulmonary disease) Status: Chronic (4) Cirrhosis Code(s): K74.60 - UNSPECIFIED CIRRHOSIS OF LIVER Status: Chronic (5) Diabetes mellitus Code(s): E11.9 - TYPE 2 DIABETES MELLITUS WITHOUT COMPLICATIONS Status: Chronic (6) Hematuria Code(s): R31.9 - HEMATURIA, UNSPECIFIED Status: Acute - Plan Mr. Oropeza is a 73 y/o male with a PMH of cirhosis and spontaneous bacterial peritonitis. He is stable today with no new pain or symptoms. * SBP: Plan is to continue zosyn to completion of 5 day course. Once finished with zosyn, will send home on ciprofloxacin 500 mg daily for SBP prophylaxis. * Cirrhosis: Continue on lasix, spironolactone and pantoprazole. * Diabetes Mellitus: Patient currently on metformin for his DM. Blood glucose was controlled at 105 this AM. * COPD: Currently controlled with beta agonists and ipatropium PRN. * HTN: Blood pressure was high today at 170/79. Patient did not take lisinopril 40 mg this morning. Plan is to restart his lisinopril. * Hematuria: Recommended outpatient follow up. Mr Oropeza was seen and examined by me. I have also discussed him with [facility]ark[facility], and agree with the plan above. He is feeling better, but notes increased abdominal girth since admission. He says the abdominal pain has improved.- abdominal exam - his abdomen is distended, but tympanic to percussion , non-tender + BS. Will order an abdominal ultrasound. Will continue Zosyn one more day. Anticipate discharge home tomorrow.
--- NOTE | 2019-07-08 10:39 | PRG ---
DATE OF SERVICE: 07/07/2019 SUBJECTIVE: A 73-year-old male with liver cirrhosis, ascites, esophageal varices. The patient also was weakened because of abdominal distention, increasing ascites, and was found to have evidence of spontaneous bacterial peritonitis. He is on IV Zosyn. He is much better. . His lactulose is on hold today. He has no abdominal pain, no nausea or vomiting. He offers no complaints. PHYSICAL EXAMINATION: GENERAL: He is comfortable. VITAL SIGNS: Stable. Afebrile, pulse 68, blood pressure 183/86. CARDIOVASCULAR SYSTEM normal heart sounds_ ABDOMEN: Distended, but soft. Abdomen is nontender. LABORATORY DATA: From today, lytes are normal. BUN is 15, creatinine 0.7, glucose 87, calcium 8.5, bilirubin 1.9 . CLINICAL IMPRESSION: 1. Liver cirrhosis, ascites. 2. Spontaneous bacterial peritonitis. 3. Obesity. 4. Chronic obstructive pulmonary disease. 5. Diabetes mellitus. 6. Hypertension. RECOMMENDATIONS: 1. Continue diuretics as ordered. 2. Continue IV antibiotics. I agree with five days of Zosyn and I believe the patient can go home on ciprofloxacin. The patient will come back to see me as an outpatient in my clinic. Job ID: [id number] MTDD
--- NOTE | 2019-07-08 16:31 | ULT ---
ABDOMINAL ULTRASOUND: Date: 07/08/19 Limited abdominal ultrasound performed for four quadrant ascites evaluation. INDICATION: Increasing abdominal girth/recurrent ascites. FINDINGS/IMPRESSION: Four quadrant ultrasound shows low to moderate volume ascites in all quadrants. POS: OFF
--- NOTE | 2019-07-08 18:59 | PRG ---
DATE OF SERVICE: 07/08/2019 SUBJECTIVE: This is a 73-year-old [place] male with liver cirrhosis, comes in with significant ascites, abdominal pain. He had a paracentesis over the weekend and was found to have SBP. On broad-spectrum antibiotic therapy. He is also on diuretics with Lasix and Aldactone and he is doing very well at the present time. No abdominal pain. He complains of abdominal bloating and tightness. He had an abdominal sonogram, which revealed again moderate amount of ascites. He has no other complaints. PHYSICAL EXAMINATION: GENERAL: Appears very comfortable, in no acute distress. He is not short winded. VITAL SIGNS: Afebrile. Pulse is 66, blood pressure 175/77. CARDIOVASCULAR AND LUNGS: Normal. ABDOMEN: Soft, but distended. Abdomen is nontender. LABORATORY DATA: Blood sugar today is 129. CLINICAL IMPRESSION: 1. Liver cirrhosis, ascites. 2. Spontaneous bacterial peritonitis, on IV antibiotics. RECOMMENDATIONS: We will continue diuretics and IV antibiotics. I believe, he will be able to go tomorrow on p.o. antibiotics. He will come back to see me in the office in 2 weeks. Job ID: [id number] [facility]
[2019-07-09] MEDS: Piperacillin/Tazobactam 3.375 GM in Sodium Chloride 0.9% 100 ML IVPB SCH ×2 (02:22→08:13)
[2019-07-09] MEDS: Mometasone/Formoterol 120 PUFF INHALER INH SCH (06:29)
--- NOTE | 2019-07-09 07:35 | PDOC.HOSPP ---
- Subjective Encounter Date: 07/09/19 Encounter Time: 06:40 Subjective: Mr. Oropeza was seen today in follow up for spontaneous bacterial peritonitis. He is doing well today and slept well overnight. His urine is 'clearing up' this morning and he is still having diarrhea. He has noticed some blood on the toilet paper after wiping. His abdomen still is distended, but he denies CP, SOB, sore throat, fever or chills. - Objective Vital Signs & Weight: Vital Signs (12 hours) Pulse Ox 07/08/19 20:00 95 Weight Admit Weight 89.539 kg Weight 89.539 kg I&O: 07/08/19 07/09/19 07/10/19 06:59 06:59 06:59 Intake Total 2120 1200 Output Total 400 Balance 1720 1200 Result Diagrams: 07/05/19 09:04 07/07/19 06:26 Additional Labs: Accuchecks 07/09/19 07/08/19 07/08/19 04:24 19:33 16:42 POC Glucose 80 102 110 07/08/19 11:22 POC Glucose 129 H Hospitalist ROS - Review of Systems Constitutional: denies: fever, chills Respiratory: denies: cough, shortness of breath Cardiovascular: denies: chest pain Gastrointestinal: reports: diarrhea. denies: nausea, vomiting, abdominal pain Genitourinary: denies: dysuria, frequency - Medication Medications: Active Medications Generic Name Dose Route Start Last Admin Trade Name Freq PRN Reason Stop Dose Admin Furosemide 20 mg 07/07/19 09:00 07/08/19 08:21 Lasix PO 20 mg DAILY SARAH Administration Piperacillin Sod/Tazobactam 100 mls @ 200 mls/hr 07/05/19 03:00 07/09/19 02: 22 Sod 3.375 gm/ Sodium Chloride IVPB 100 mls 0300,0900,1500,2100 SARAH Administration Lactulose 20 gm 07/05/19 21:00 07/08/19 20:50 Lactulose PO 20 gm BID SARAH Administration Mometasone Furoate/Formoterol Fumar 2 puff 07/05/19 18:30 07/09/19 06:29 Dulera 200 Mcg/5 Mcg Inhaler INH Not Given BID-RT SARAH Pantoprazole Sodium 40 mg 07/05/19 09:00 07/08/19 08:21 Protonix PO 40 mg DAILY SARAH Administration Sodium Chloride 10 ml 07/05/19 21:00 07/08/19 20:50 Flush - Normal Saline IVF 10 ml Q12HR SARAH Administration Sodium Chloride 10 ml 07/05/19 09:43 07/08/19 14:41 Flush - Normal Saline IVF 10 ml PRN PRN Administration Saline Flush Spironolactone 50 mg 07/07/19 08:00 07/08/19 08:21 Aldactone PO 50 mg QAM-WM SARAH Administration - Exam General Appearance: NAD, awake alert Eye: PERRL, anicteric sclera ENT: moist mucosa Neck: supple, no JVD Heart: RRR, no murmur, no rubs Respiratory: wheezes (Wheezes in both left upper and lower lobes while supine) Gastrointestinal: normal bowel sounds, distended Gastrointestinal - other findings: typanic to percussion in all 4 quadrants Extremities: no edema Hosp A/P (1) Spontaneous bacterial peritonitis Code(s): K65.2 - SPONTANEOUS BACTERIAL PERITONITIS Status: Acute (2) Hypertension Code(s): I10 - ESSENTIAL (PRIMARY) HYPERTENSION Status: Chronic (3) COPD (chronic obstructive pulmonary disease) Status: Chronic (4) Cirrhosis Code(s): K74.60 - UNSPECIFIED CIRRHOSIS OF LIVER Status: Chronic (5) Diabetes mellitus Code(s): E11.9 - TYPE 2 DIABETES MELLITUS WITHOUT COMPLICATIONS Status: Chronic (6) Hematuria Code(s): R31.9 - HEMATURIA, UNSPECIFIED Status: Acute - Plan Mr. Oropeza is a 73 y/o male with a PMH of cirhosis and spontaneous bacterial peritonitis. No new pain or complaints today and he is ready to go home. * SBP: Plan is to administer last dose of zosyn and send him home on ciprofloxacin 500 mg daily for SBP prophylaxis. * Cirrhosis: Continue on lasix, spironolactone and pantoprazole. Recommend follow up with PCP * Diabetes Mellitus: Patient currently on metformin for his DM. Blood glucose was controlled at 80 this AM. Recommend follow up with PCP * COPD: His wheezing on the left lung gaffney heard on exam were likely from COPD. Currently controlled with beta agonists and ipatropium PRN. * HTN: Vitals not taken this morning yet. Continue lisinopril 40mg and follow up with PCP. * Hematuria/Bright Red blood per rectum (BRBPR): Recommended outpatient follow up. BRBPR possibly secondary to recent episodes of diarrhea and rectal irritation. * Recommend discharge today. Will discuss with Dr. Odell. * Patient seen and examined by me. Mr. Oropeza is feeling better. He does not have any new complaints. He has some abdominal distention on exam, no no tenderness. He is stable for discharge home.
[2019-07-09] MEDS: Furosemide 20 MG TAB PO SCH (08:15)
[2019-07-09] MEDS: Spironolactone 25 MG TAB PO SCH (08:15)
[2019-07-09] MEDS ORDERED: Lisinopril 20 MG TAB PO SCH (09:00)
[2019-07-09 12:37] VITALS: BP 177/77; TEMP 98.5
--- NOTE | 2019-07-10 03:34 | DIS ---
DATE OF ADMISSION: 07/04/2019 DATE OF DISCHARGE: 07/09/2019 PRIMARY CARE PHYSICIAN: Dr. Milagro Diallo. DISCHARGE DISPOSITION: Home. PRIMARY DISCHARGE DIAGNOSES: 1. Spontaneous bacterial peritonitis. 2. Cirrhosis. 3. Hypertension. 4. Diabetes mellitus type 2. 5. Coronary artery disease. 6. Hypercholesterolemia. DISCHARGE MEDICATIONS: Include: 1. Aldactone 50 mg p.o. daily. 2. Protonix 40 mg daily. 3. Metformin 500 mg twice daily. 4. Lisinopril 40 mg daily. 5. Lasix 20 mg daily. 6. Ciprofloxacin 500 mg p.o. daily. 7. Spiriva Respimat 1 inhalation daily. 8. ClearLax 17 g p.o. daily. 9. Symbicort 160/4.5 one puff daily. PROCEDURES AND IMAGING: The patient had a CT scan of the abdomen and pelvis, showing hepatosplenomegaly and hepatic cirrhosis. There was progressive moderate ascites, 3rd spacing of fluid and a patent aortic iliac graft. The patient had an ultrasound-guided paracentesis and then a repeat ultrasound on 07/08/2019 showing a [id number] volume of ascites in all 4 quadrants. CODE STATUS: Full code. ALLERGIES: NO KNOWN DRUG ALLERGIES. HOSPITAL COURSE: Mr. Oropeza is a pleasant 73-year-old gentleman who came to the hospital after suffering severe abdominal pain and bloating, the full details of which are outlined in the history and physical. He had leukocytosis and it was found he had ascites, so therefore there was concern for possible spontaneous bacterial peritonitis. He underwent ultrasound-guided paracentesis. The fluid was drawn and consistent with bacterial peritonitis with greater than 50% polymorphonuclear leukocytes with a white blood cell count over 500. He was started on treatment. He improved over the course of the next few days. Gastroenterology was also consulted due to his cirrhosis. He was started on Lasix and the Aldactone as well as Protonix. At the time of discharge, it was recommended that he be placed on SBP prophylaxis and that he had a history of esophageal varices, which were discovered on EGD on a previous hospital stay and also because his total protein in the ascitic fluid was less than 1. 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 Job ID: [id number]
--- NOTE | 2019-07-11 15:17 | EKG ---
Test Reason : Blood Pressure : / mmHG Vent. Rate : 088 BPM Atrial Rate : 088 BPM P-R Int : 162 ms QRS Dur : 076 ms QT Int : 360 ms P-R-T Axes : 040 057 048 degrees QTc Int : 435 ms Normal sinus rhythm Normal ECG Confirmed by RENZO PHAM MD ([id number]), editorial manager ASHTYN LAUREANO ([id number]) on 07/11/2019 3:17:45 PM Referred By: ANKIT Confirmed By:RENZO PHAM MD
== END 2019-07-09 14:59 | disposition home or self-care (01) | DRG 372 ==
LOC: ERS 09:36 → T4-B 15:27
PROVIDERS: ADMIT Internal Medicine; ATTEND Internal Medicine
PROC: 0W9G30Z Drainage of Peritoneal Cavity with Drainage Device, Percutaneous Approach (ICD-10-PCS; principal; 2019-07-04)
DX: K65.2 Spontaneous bacterial peritonitis (principal); I85.10 Secondary esophageal varices without bleeding; R18.8 Other ascites; K76.6 Portal hypertension; K74.60 Unspecified cirrhosis of liver; I10 Essential (primary) hypertension; E78.00 Pure hypercholesterolemia, unspecified; E11.9 Type 2 diabetes mellitus without complications; I25.10 Atherosclerotic heart disease of native coronary artery without angina pectoris; J44.9 Chronic obstructive pulmonary disease, unspecified; K31.89 Other diseases of stomach and duodenum; K29.70 Gastritis, unspecified, without bleeding; K59.09 Other constipation; Z79.84 Long term (current) use of oral hypoglycemic drugs; Z79.899 Other long term (current) drug therapy; Z87.891 Personal history of nicotine dependence
CPT/HCPCS: 36415; 36416; 49083; 74177; 76705; 80048; 80053; 80074; 81003; 81015; 82042; 82140; 82550; 82945; 83605; 83615; 83690; 84157; 85025; 85060; 85610; 85730; 87040; 87070; 87086; 87205; 87389; 89051; 93005; 94760; 96365; 96366; 96367; J0696; J2001; J2543; J3370; J3490; P9047; Q9966

== ENCOUNTER 2019-09-05 15:25 | Emergency (ER) | payer MEDICARE, MEDICAID ==
[2019-09-05 15:57] LABS: #Eosinphils 0.2 thou/uL (0.0-0.7); #Lymphocytes 1.3 thou/uL (1.20-3.40); #Monocytes 0.9 thou/uL (0.11-0.59); #Neutrophils 6.7 thou/uL (1.40-6.50); %Basophils 0.2 % (0.0-1.0); %Eosinophils 2.2 % (0.0-10.0); %Lymphocytes 14.2 % (21.0-51.0); %Monocytes 9.7 % (0.0-10.0); %Neutrophils 73.7 % (42.0-75.0); Hemoglobin 12.7 g/dL (14.0-18.0); Mean Corpuscular Hemoglobin 35.7 pg (27.0-31.0); Mean Platelet Volume 6.7 fL (7.4-10.4); Platelet Count 132 thou/uL (130-400); RBC Distribution Width 14.7 % (11.5-14.5); Red Blood Cell (RBC) Count 3.57 mill/uL (4.70-6.10); White Blood Cell (WBC) Count 9.1 thou/uL (4.8-10.8)
[2019-09-05 16:25] LABS: ALT (SGPT) 18 U/L (8-55); AST (SGOT) 26 U/L (5-34); Albumin 3.2 g/dL (3.4-4.8); Alkaline Phosphatase 139 U/L (40-110); Anion Gap 10 mmol/L (10-20); BUN (Urea Nitrogen) 20 mg/dL (8.4-25.7); Bilirubin, Total 1.6 mg/dL (0.2-1.2); Calc. Creatinine Clearance 0 mL/min (70-130); Calcium 8.9 mg/dL (7.8-10.44); Carbon Dioxide 28 mmol/L (23-31); Chloride 108 mmol/L (98-107); Estimated GFR-MDRD 62; Globulin 3.4 g/dL (2.4-3.5); Glucose 93 mg/dL (83-110); Potassium 4.3 mmol/L (3.5-5.1); Protein, Total 6.6 g/dL (5.8-8.1); Sodium 142 mmol/L (136-145)
[2019-09-05] MEDS ORDERED: Meclizine HCl 25 MG TAB ONE (17:19)
--- NOTE | 2019-09-05 18:19 | CT ---
Exam: CT brain PROVIDED CLINICAL HISTORY: Dizziness COMPARISON: None FINDINGS: The ventricular system is normal in size and morphology. No evidence for intracranial hemorrhage or mass effect. The extracranial soft tissues and osseous structures demonstrate no evidence for an acute abnormality. IMPRESSION: No evidence for intracranial hemorrhage or mass effect.
== END 2019-09-05 19:12 | disposition home or self-care (01) ==
LOC: ERS 15:25
DX: R42 Dizziness and giddiness (principal); R00.1 Bradycardia, unspecified; I10 Essential (primary) hypertension; E11.9 Type 2 diabetes mellitus without complications; J44.9 Chronic obstructive pulmonary disease, unspecified
CPT/HCPCS: 36415; 70450; 80053; 85025; 93005; 96360; J8597

== ENCOUNTER 2020-01-06 08:09 | Inpatient (IN) | payer MEDICARE, MEDICAID ==
[2020-01-06 08:42] LABS: #Eosinphils 0.1 thou/uL (0.0-0.7); #Monocytes 0.6 thou/uL (0.11-0.59); #Neutrophils 4.7 thou/uL (1.40-6.50); %Basophils 0.5 % (0.0-1.0); %Eosinophils 1.9 % (0.0-10.0); %Lymphocytes 14.8 % (21.0-51.0); %Monocytes 9.5 % (0.0-10.0); %Neutrophils 73.3 % (42.0-75.0); Hemoglobin 9.7 g/dL (14.0-18.0); Mean Corpuscular HGB CONC 35.4 g/dL (32.0-36.0); Mean Corpuscular Hemoglobin 36.4 pg (27.0-31.0); Mean Platelet Volume 7.1 fL (7.4-10.4); Platelet Count 100 thou/uL (130-400); RBC Distribution Width 13.1 % (11.5-14.5); Red Blood Cell (RBC) Count 2.66 mill/uL (4.70-6.10); White Blood Cell (WBC) Count 6.4 thou/uL (4.8-10.8)
[2020-01-06 09:04] LABS: ALT (SGPT) 17 U/L (8-55); AST (SGOT) 24 U/L (5-34); Albumin 3.5 g/dL (3.4-4.8); Alkaline Phosphatase 97 U/L (40-110); Anion Gap 13 mmol/L (10-20); BUN (Urea Nitrogen) 33 mg/dL (8.4-25.7); Bilirubin, Total 1.3 mg/dL (0.2-1.2); Calc. Creatinine Clearance 0 mL/min (70-130); Calcium 9.3 mg/dL (7.8-10.44); Carbon Dioxide 21 mmol/L (23-31); Chloride 110 mmol/L (98-107); Estimated GFR-MDRD 56; Globulin 2.9 g/dL (2.4-3.5); Glucose 103 mg/dL (83-110); Protein, Total 6.4 g/dL (5.8-8.1); Sodium 139 mmol/L (136-145)
--- NOTE | 2020-01-06 10:55 | CT ---
CT Abdomen Pelvis W Con History: Abdominal pain Comparison: CT examination July 04, 2019 Findings: Mild bronchiectasis in both lung bases, greatest in the left lower lobe. The centrilobular opacities in left lower lobe. No pericardial effusion. There is extensive gastric varices and splenic varices. Spleen is markedly enlarged. The previously noted ascites has resolved for the most part with trace fluid within the dependent por tion of the pelvis. Continued congestive changes of the right colon involving the cecal apex and the ascending colon. No free intraperitoneal gas. No hydroureteronephrosis. Renal hypodensities are relatively similar The aorta bi- iliac graft excludes the abdominal aortic aneurysm which is similar. The celiac trunk and superior mesenteric arteries are patent. The portal vein is patent. The appendix is felt to be visualized and appears normal. Nodular contour of the liver. No definite hepatic mass is appreciated. Impression: 1. Interval improvement of free intra-abdominal ascites. 2. Hepatic cirrhosis without mass appreciated. 3. Sequela of portal hypertension with gastric and esophageal varices, splenomegaly. 4. Continued congestive changes of the colon with trace free fluid within the pelvis. 5. Centrilobular nodules left lung base likely sequelae of recurrent aspiration or pneumonia. 6. Small fluid-containing left indirect hernia. 7. Similar appearance of the hypodensity interpolar right kidney.
[2020-01-06] MEDS ORDERED: PROPOFOL 200 MG/20 ML VIAL ONE (11:06)
[2020-01-06] MEDS ORDERED: Octreotide Acetate 100 MCG/ML VIAL ONE (11:33)
[2020-01-06] MEDS ORDERED: cefTRIAXone\\ROCEPHIN 2 GM VIAL ONE ×2 (11:33→11:37)
[2020-01-06] MEDS ORDERED: Pantoprazole 40 MG VIAL ONE ×2 (11:33→11:37)
[2020-01-06] MEDS ORDERED: Azithromycin 500 MG VIAL ONE (11:33)
[2020-01-06 12:39] LABS: Bacteria/HPF None Seen HPF (None Seen); Bilirubin Negative (Negative); Blood, Urine 3+ (Negative); Clarity Clear (Clear); Glucose, Urine (Dipstick) Normal (Negative); Leukocyte Negative Leu/uL (Negative); Nitrite Negative (Negative); Protein, Urine (Dipstick) Negative (Neg-Trace); Squamous Epithelial None Seen HPF (0-3); Urobilinogen Normal mg/dL (Less than 2)
[2020-01-06] MEDS: Octreotide Acetate 1,250 MCG in Sodium Chloride 0.9% 250 ML 250 ML IVPB SCH (13:54)
[2020-01-06 14:07] LABS: Troponin I 0.018 ng/mL (< 0.028)
[2020-01-06 14:12] VITALS: BMI 27.3
[2020-01-06] MEDS ORDERED: Ondansetron ODT 4 MG TAB PO PRN (14:20)
[2020-01-06] MEDS ORDERED: Ondansetron PF 4 MG/2 ML Vial IVP PRN (14:20)
[2020-01-06] MEDS ORDERED: Sodium Chloride 0.9% 1,000 ML IV SCH (14:30)
[2020-01-06] MEDS ORDERED: Iopamidol-370 76% 500 ML 1 ML ONE (15:21)
[2020-01-06 16:48] LABS: Troponin I 0.012 ng/mL (< 0.028)
--- NOTE | 2020-01-06 22:53 | PDOC.HHP ---
Hospitalist HPI - History of Present Illness History of Present Illness: This is a 74-year-old male with history of coronary artery disease, COPD, Alcoholic liver cirrhosis, and previous variceal bleeding who presented to the hospital with complaints of generalized weakness and feeling dizzy over the past 24 hours. The patient stated that he has been experiencing black tarry stools over the past 3 weeks. He complains of nausea but denied any vomiting or hematemesis. In the ER, the patient was found to be slightly anemic with hemoglobin of 9.4. His fecal occult stool test was positive. CT scanning the abdomen pelvis did not reveal any acute abdominal abnormalities but revealed suspected left lower lobe infiltrate suggesting possible pneumonia. Hospitalist ROS - Review of Systems All other systems reviewed; all pertinent +/- noted in HPI/Subj - Medication Medications: Active Medications Generic Name Dose Route Start Last Admin Trade Name Freq PRN Reason Stop Dose Admin Octreotide Acetate 1,250 mcg/ 251.25 mls @ 10.05 mls/hr 01/06/20 11:45 13:54 Sodium Chloride IVPB 251.25 mls INF SARAH Administration 50 MCG/HR Sodium Chloride 1,000 mls @ 100 mls/hr 01/06/20 14:30 01/06/20 14:44 Normal Saline 0.9% IV 01/06/20 23:00 1,000 mls .Q10H SARAH Administration Sodium Chloride 10 ml 01/06/20 21:00 01/06/20 21:22 Flush - Normal Saline IVF 10 ml Q12HR SARAH Administration - Exam General Appearance: NAD Eye: PERRL ENT: normocephalic atraumatic Neck: supple, no JVD Heart: RRR, no murmur, no gallops, no rubs, normal peripheral pulses Respiratory: CTAB, rhonchi Gastrointestinal: soft, non-tender, non-distended, normal bowel sounds Neurological: cranial nerve grossly intact, no focal deficits Hospitalist Results - Labs Result Diagrams: 01/06/20 08:25 01/06/20 08:25 Lab results: WBC 6.4 thou/uL (4.8-10.8) 01/06/20 08:25 Hgb 9.7 g/dL (14.0-18.0) L 01/06/20 08:25 Hct 27.4 % (42.0-52.0) L 01/06/20 08:25 MCV 103.0 fL (78.0-98.0) H 01/06/20 08:25 Plt Count 100 thou/uL (130-400) L 01/06/20 08:25 Neutrophils % 73.3 % (42.0-75.0) 01/06/20 08:25 Sodium 139 mmol/L (136-145) 01/06/20 08:25 Potassium 5.0 mmol/L (3.5-5.1) 01/06/20 08:25 Chloride 110 mmol/L (98-107) H 01/06/20 08:25 Carbon Dioxide 21 mmol/L (23-31) L 01/06/20 08:25 BUN 33 mg/dL (8.4-25.7) H 01/06/20 08:25 Creatinine 1.25 mg/dL (0.7-1.3) 01/06/20 08:25 Glucose 103 mg/dL (83-110) 01/06/20 08:25 Lactic Acid 1.3 mmol/L (0.5-2.2) 01/06/20 10:02 Calcium 9.3 mg/dL (7.8-10.44) 01/06/20 08:25 Total Bilirubin 1.3 mg/dL (0.2-1.2) H 01/06/20 08:25 AST 24 U/L (5-34) 01/06/20 08:25 ALT 17 U/L (8-55) 01/06/20 08:25 Alkaline Phosphatase 97 U/L (40-110) 01/06/20 08:25 Troponin I 0.012 ng/mL (< 0.028) 01/06/20 16:07 Serum Total Protein 6.4 g/dL (5.8-8.1) 01/06/20 08:25 Albumin 3.5 g/dL (3.4-4.8) 01/06/20 08:25 Lipase 48 U/L (8-78) 01/06/20 10:02 Urine Ketones Negative mg/dL (Negative) 01/06/20 12:01 Urine Blood 3+ (Negative) A 01/06/20 12:01 Urine Nitrite Negative (Negative) 01/06/20 12:01 Ur Leukocyte Esterase Negative Michelle/uL (Negative) 01/06/20 12:01 Urine RBC 11-20 HPF (0-3) A 01/06/20 12:01 Urine WBC 4-6 HPF (0-3) A 01/06/20 12:01 Ur Squamous Epith Cells None Seen HPF (0-3) 01/06/20 12:01 Urine Bacteria None Seen HPF (None Seen) 01/06/20 12:01 Hospitalist H&P A/P - Problem (1) Upper GI bleed Code(s): K92.2 - GASTROINTESTINAL HEMORRHAGE, UNSPECIFIED Status: Acute (2) Anemia due to chronic blood loss Code(s): D50.0 - IRON DEFICIENCY ANEMIA SECONDARY TO BLOOD LOSS (CHRONIC) Status: Acute (3) Esophageal varices Code(s): I85.00 - ESOPHAGEAL VARICES WITHOUT BLEEDING Status: Acute (4) COPD (chronic obstructive pulmonary disease) Status: Chronic (5) Cirrhosis Code(s): K74.60 - UNSPECIFIED CIRRHOSIS OF LIVER Status: Chronic - Plan Plan: Melena suggesting upper GI bleeding. Patient with history of variceal bleed. Started on IV octreotide and Protonix drips in addition to IV ceftriaxone. GI consulted. We will monitor H and H daily
[2020-01-07] MEDS: Pantoprazole 80 MG, Admixture Fee 1 EACH in Sodium Chloride 0.9% 100 ML IVPB SCH ×2 (04:12→15:44)
[2020-01-07 05:41] LABS: #Eosinphils 0.2 thou/uL (0.0-0.7); #Lymphocytes 1.2 thou/uL (1.20-3.40); #Monocytes 0.6 thou/uL (0.11-0.59); #Neutrophils 5.2 thou/uL (1.40-6.50); %Basophils 0.1 % (0.0-1.0); %Eosinophils 2.2 % (0.0-10.0); %Monocytes 8.8 % (0.0-10.0); %Neutrophils 71.9 % (42.0-75.0); Hemoglobin 9.8 g/dL (14.0-18.0); Mean Corpuscular HGB CONC 35.3 g/dL (32.0-36.0); Mean Corpuscular Hemoglobin 36.6 pg (27.0-31.0); Mean Platelet Volume 7.6 fL (7.4-10.4); Platelet Count 110 thou/uL (130-400); RBC Distribution Width 13.1 % (11.5-14.5); Red Blood Cell (RBC) Count 2.69 mill/uL (4.70-6.10); White Blood Cell (WBC) Count 7.3 thou/uL (4.8-10.8)
[2020-01-07 05:52] LABS: Anion Gap 13 mmol/L (10-20); BUN (Urea Nitrogen) 25 mg/dL (8.4-25.7); Calc. Creatinine Clearance 61 mL/min (70-130); Calcium 8.6 mg/dL (7.8-10.44); Carbon Dioxide 20 mmol/L (23-31); Chloride 110 mmol/L (98-107); Estimated GFR-MDRD 59; Glucose 147 mg/dL (83-110); Potassium 4.6 mmol/L (3.5-5.1); Sodium 138 mmol/L (136-145)
--- NOTE | 2020-01-07 09:32 | CON ---
DATE OF CONSULTATION: 01/06/2020 REASON FOR CONSULTATION: History of black tarry stools, anemia. HISTORY OF PRESENT ILLNESS: Mr. Noah Oropeza is a 74-year-old male, known to me from before. The patient had seen me in 2019 because of anemia and positive fecal occult blood. He underwent an EGD and was found to have 4+ esophageal varices, portal hypertensive gastropathy. Colonoscopy showed hemorrhoids and also a sigmoid diverticula, had a small polyp, which was taken out. The patient has history of alcohol abuse over the years. He has developed liver cirrhosis, portal hypertension, and ascites. The patient has stopped drinking completely. Also last EGD, which was done sometime in May or June 2019, he was advised to come back for repeat EGD and banding done. The patient did not come back to me for follow up of this. The patient apparently was seeing some doctors in nephrology off and on. The patient developed some black tarry stool, I think he tells me 5 or 7 days ago. However, he says it has been going on for the last month. Stools are dark and tarry. He has had no stool today, but he was having at least one or two stools every day until yesterday. He has no abdominal pain. No nausea or vomiting. No relevant history. He was hospitalized in 06/2019 for ascites and abdominal pain. He had a large volume paracentesis done and subsequently was placed on low-sodium diet, Aldactone, and furosemide. He had done well on the above regimen. His abdomen did advance to mildly distended, but not very tight. Since June, he has done fairly well. MEDICAL ILLNESSES: 1. Liver cirrhosis. 2. Portal hypertension. 3. Ascites. 4. . 5. Portal hypertensive gastropathy. 6. COPD. 7. Diabetes mellitus. 8. Hypertension. 9. Hyperlipidemia. 10. Sigmoid diverticular disease. ALLERGIES: NONE. SOCIAL HISTORY: He is . He does not smoke, but drinks alcohol very heavily. He quit drinking alcohol somewhere around 2018. FAMILY HISTORY: No family history of liver cirrhosis, cancer, heart disease, or lung disease. MEDICATIONS: Reviewed. REVIEW OF SYSTEMS: A 10-point system reviewed. CONSTITUTIONAL: No history of any weight loss. No fever or chills. Had good exercise tolerance. HEAD: No chronic headache. No dizziness. EYES: No impaired vision. No diplopia. ENT: No hearing impairment. No sore throat. No nose bleed. LUNGS: No chronic coughing, but does have some coughing off and on. He also has mild wheezing off and on. He does use neb treatment. CARDIOVASCULAR SYSTEM: No chest pain. No palpitation. No dyspnea, orthopnea, or PND. GI: Vague abdominal pain. He used to have tarry stools. GENITOURINARY: No dysuria or hematuria. NEUROMUSCULAR AND PSYCHIATRY: Nonrelevant. PHYSICAL EXAMINATION: GENERAL: He appears comfortable. He is in no distress. He is awake, alert, and oriented to time, place, and person. VITAL SIGNS: Afebrile, pulse is 72, and blood pressure is 136/78. HEENT: Conjunctivae clear. NECK: Supple. No adenitis or thyromegaly noted. CARDIOVASCULAR SYSTEM: First and second heart sounds are normal. LUNGS: Clear to auscultation. Gastrointestinal: Abdomen is mildly distended. Abdomen is soft. Abdomen is nontender. No organomegaly. No masses. Bowel sounds normal. EXTREMITIES: No edema. LAB DATA: CBC: WBC 6400, hemoglobin 9.7, hematocrit 27.4, MCV 103, and platelet count 100,000. Lytes are normal. Potassium 5, BUN is 33, creatinine is 1.25, and bilirubin 1.3. Liver function tests are normal. Albumin is 3.5. Abdominal CAT scan done shows splenomegaly, varicosities of the esophagus, and , with minimal ascites. IMPRESSION: 1. A 74-year-old male with liver cirrhosis due to alcohol abuse. He has quit drinking in 2019. He also had a large volume paracentesis in 2019. He also seems to be stable at the present time. He is on low-sodium diet and Aldactone and furosemide. 2. History of black tarry stool, which appears to be a slow bleeding as he has had several days of black tarry stool. He has no nausea and no vomiting. He had one stool yesterday. No stool today. He is mildly anemic. He is known to have portal hypertensive gastropathy and a 4+ esophageal varices. He most likely bleeding from esophageal varices. 3. Chronic obstructive pulmonary disease. 4. Hypertension. 5. Hyperlipidemia. RECOMMENDATIONS: 1. Continue IV octreotide. 2. Serial hemoglobin and hematocrit. 3. Evaluate with EGD later on today. I will make further recommendation after EGD. I did talk to Vanita Sandip at length, explaining about the importance of followup with me. He saw me in last year, he never come back to see me. He was also advised that he continue variceal banding periodically to prevent future episodes of bleeding. I will plan for EGD later on today and I will make further recommendations. Job ID: [id number]
[2020-01-07] MEDS: Acetaminophen/Codeine 30-300mg Tablet PO PRN ×2 (12:26→22:26)
--- NOTE | 2020-01-07 13:59 | OP ---
DATE OF PROCEDURE: 01/06/2020 PROCEDURES PERFORMED: 1. Esophagogastroduodenoscopy. 2. Esophagogastroduodenoscopy with variceal banding. PREOPERATIVE DIAGNOSES: Liver cirrhosis, gastrointestinal bleeding, anemia due to blood loss. POSTOPERATIVE DIAGNOSES: 1. Three columns of 4+ varicosities over the distal esophagus. 2. Portal hypertensive gastropathy. 3. Polypoid appearing gastric antrum. 4. Normal duodenum. At the time of endoscopy, no active bleeding seen. DESCRIPTION OF PROCEDURE: The patient was placed on his left lateral position and was given sedation by Anesthesia Department. A Pentax videogastroscope under direct vision passed down the oropharynx past the GE junction into the stomach and subsequently descending duodenum. The patient had three columns of 4+ varicosities over the distal esophagus. He has bleeding. At the time of endoscopy, no active bleeding seen. The stomach is free of any blood. The fundus showed no gastric varices. The patient appears to have diffuse hypertensive gastropathy. The gastric antrum mucosa was somewhat polypoid. In the duodenal bulb, descending duodenum, no pathology seen. The scope was removed. The variceal band ligated . The scope introduced back into the stomach. The scope was carefully withdrawn and 4 variceal banding applied with good hemostasis. RECOMMENDATIONS: 1. Serial hemoglobin and hematocrit. 2. Continue IV octreotide. 3. clear liquid diet later on today. Job ID: [id number]
--- NOTE | 2020-01-07 14:33 | PDOC.HOSPP ---
- Subjective Encounter Date: 01/07/20 Subjective: S/P EGD - Objective Vital Signs & Weight: Vital Signs (12 hours) Temp Pulse Resp BP Pulse Ox 01/07/20 10:40 98.0 F 69 16 146/74 H 97 01/07/20 08:20 97 01/07/20 07:24 98.1 F 70 18 129/72 96 01/07/20 03:46 98.2 F 65 18 143/64 H 96 Weight Weight 180 lb I&O: 01/06/20 01/07/20 01/08/20 06:59 06:59 06:59 Intake Total 960 Output Total 550 Balance 410 Result Diagrams: 01/07/20 05:14 01/07/20 05:14 Additional Labs: Accuchecks 01/06/20 16:38 POC Glucose 81 Hospitalist ROS - Medication Medications: Active Medications Generic Name Dose Route Start Last Admin Trade Name Freq PRN Reason Stop Dose Admin Acetaminophen/Codeine Phosphate 1 tab 01/07/20 11:35 01/07/20 12:26 Tylenol #3 PO 1 tab Q6H PRN Administration Pain Octreotide Acetate 1,250 mcg/ 251.25 mls @ 10.05 mls/hr 01/06/20 11:45 13:54 Sodium Chloride IVPB 251.25 mls INF SARAH Administration 50 MCG/HR Pantoprazole Sodium 80 mg/ 100 mls @ 10 mls/hr 01/06/20 11:45 01/07/20 04:12 Miscellaneous Medication 1 IVPB 100 mls each/ Sodium Chloride INF SARAH Administration Sodium Chloride 10 ml 01/06/20 21:00 01/07/20 11:26 Flush - Normal Saline IVF Not Given Q12HR SARAH - Exam General Appearance: NAD ENT: normocephalic atraumatic Neck: supple, no JVD Heart: RRR Respiratory: CTAB Gastrointestinal: soft, non-tender, non-distended, normal bowel sounds Neurological: cranial nerve grossly intact, no focal deficits Hosp A/P (1) Upper GI bleed Code(s): K92.2 - GASTROINTESTINAL HEMORRHAGE, UNSPECIFIED Status: Acute (2) Anemia due to chronic blood loss Code(s): D50.0 - IRON DEFICIENCY ANEMIA SECONDARY TO BLOOD LOSS (CHRONIC) Status: Acute (3) Esophageal varices Code(s): I85.00 - ESOPHAGEAL VARICES WITHOUT BLEEDING Status: Acute (4) COPD (chronic obstructive pulmonary disease) Status: Chronic (5) Cirrhosis Code(s): K74.60 - UNSPECIFIED CIRRHOSIS OF LIVER Status: Chronic - Plan S/P EGD with esophageal varices band ligation H&H stable Continue Octreotide and Pantoprazol drips and IV ceftriaxone.
[2020-01-07] MEDS: Octreotide Acetate 1,250 MCG in Sodium Chloride 0.9% 250 ML 250 ML IVPB SCH (15:39)
[2020-01-07] MEDS: cefTRIAXone\\ROCEPHIN 1 GM in Sodium Chloride 0.9% 100 ML IVPB SCH (15:43)
--- NOTE | 2020-01-07 17:59 | PRG ---
DATE OF SERVICE: 01/07/2020 SUBJECTIVE: This is a 74-year-old male with diabetes mellitus, hypertension, liver cirrhosis. The patient is known to have esophageal varices from before. The patient presents with melena yesterday. He underwent an EGD yesterday. EGD showed 4+ esophageal varices. He underwent banding x4. He has done well overnight. He is on IV Protonix and also IV octreotide. He is tolerating diet. He has no complaints. OBJECTIVE: GENERAL: Appears comfortable. VITAL SIGNS: Afebrile. Pulse 69, blood pressure 146/74. CARDIOVASCULAR: Normal heart sounds. LUNGS: Clear to auscultation. ABDOMEN: Soft. No organomegaly. No tenderness. No masses. LABORATORY DATA: No change from yesterday. WBC 7300, hemoglobin 9.8, hematocrit 27.8, platelet count 110,000. Chem 7; glucose 147. Lytes are normal. IMPRESSION: 1. Liver cirrhosis. 2. Portal hypertension. 3. Bleeding esophageal varices, status post banding. 4. Diabetes mellitus. 5. Hypertension. RECOMMENDATIONS: 1. Advance diet as tolerated. 2. Taper off octreotide tomorrow morning and hopefully can be discharged home on the following day. I will also recommend adding a beta pardeep to prevent recurrence of bleeding from esophageal varices. Job ID: [id number]
[2020-01-08] MEDS: Pantoprazole 80 MG, Admixture Fee 1 EACH in Sodium Chloride 0.9% 100 ML IVPB SCH (05:20)
[2020-01-08 05:48] LABS: Anion Gap 9 mmol/L (10-20); BUN (Urea Nitrogen) 15 mg/dL (8.4-25.7); Calc. Creatinine Clearance 79 mL/min (70-130); Calcium 7.8 mg/dL (7.8-10.44); Carbon Dioxide 20 mmol/L (23-31); Chloride 111 mmol/L (98-107); Estimated GFR-MDRD 79; Glucose 93 mg/dL (83-110); Potassium 4.4 mmol/L (3.5-5.1); Sodium 136 mmol/L (136-145)
[2020-01-08 06:26] LABS: #Eosinphils 0.2 thou/uL (0.0-0.7); #Lymphocytes 0.9 thou/uL (1.20-3.40); #Monocytes 0.4 thou/uL (0.11-0.59); #Neutrophils 2.6 thou/uL (1.40-6.50); %Basophils 0.5 % (0.0-1.0); %Eosinophils 5.1 % (0.0-10.0); %Lymphocytes 20.7 % (21.0-51.0); %Monocytes 10.8 % (0.0-10.0); %Neutrophils 62.9 % (42.0-75.0); Hemoglobin 8.8 g/dL (14.0-18.0); Mean Corpuscular HGB CONC 33.9 g/dL (32.0-36.0); Mean Corpuscular Hemoglobin 36.2 pg (27.0-31.0); Mean Platelet Volume 7.2 fL (7.4-10.4); Platelet Count 77 thou/uL (130-400); RBC Distribution Width 13.8 % (11.5-14.5); Red Blood Cell (RBC) Count 2.42 mill/uL (4.70-6.10); White Blood Cell (WBC) Count 4.1 thou/uL (4.8-10.8)
--- NOTE | 2020-01-08 12:41 | PRG ---
DATE OF SERVICE: 01/08/2020 SUBJECTIVE: This 74-year-old male with liver cirrhosis, previous diagnosis of esophageal varices. The patient is known to have diabetes mellitus, hypertension. He presented to the ER two days ago with black tarry stool and anemia and underwent an emergent EGD and was found to have large varicosities in the esophagus. Distal banding. He has done well over the last couple of days. He is doing well. He is on IV octreotide. He does have mild discomfort over the lower esophagus from his recent banding. No nausea, no vomiting. He is on IV octreotide and IV pantoprazole. OBJECTIVE: GENERAL: Appears comfortable. VITAL SIGNS: Afebrile. Pulse is 68, blood pressure 146/73. CARDIOVASCULAR: Within normal limits. LUNGS: Within normal limits. ABDOMEN: Soft. No organomegaly. No tenderness. No masses. LABORATORY DATA: Shows mild drop in blood count to 8.8 today. Hematocrit 26.9. Platelet count is 77,000. RECOMMENDATION: Taper of octreotide from 50 mcg per hour to 25 mcg per hour . Then this can be tapered off later on today. If he does well, consider discharge home on beta aprdeep like nadolol 40 mg once a day. The patient will come back to see me in 2 weeks. Job ID: [id number]
--- NOTE | 2020-01-08 13:26 | PDOC.HOSPP ---
- Subjective Encounter Date: 01/08/20 Subjective: No further episodes of bleeding - Objective Vital Signs & Weight: Vital Signs (12 hours) Temp Pulse Resp BP Pulse Ox 01/08/20 11:33 98.1 F 68 16 146/73 H 96 01/08/20 08:00 97.6 F 65 19 153/61 H 96 01/08/20 03:54 97.8 F 59 L 16 117/62 99 Weight Weight 180 lb I&O: 01/07/20 01/08/20 01/09/20 06:59 06:59 06:59 Intake Total 960 720 Output Total 550 1350 Balance 410 -630 Result Diagrams: 01/08/20 05:17 01/08/20 05:17 Hospitalist ROS - Medication Medications: Active Medications Generic Name Dose Route Start Last Admin Trade Name Freq PRN Reason Stop Dose Admin Acetaminophen/Codeine Phosphate 1 tab 01/07/20 11:35 01/07/20 22:26 Tylenol #3 PO 1 tab Q6H PRN Administration Pain Octreotide Acetate 1,250 mcg/ 251.25 mls @ 10.05 mls/hr 01/06/20 11:45 15:39 Sodium Chloride IVPB 251.25 mls INF SARAH Administration 50 MCG/HR Pantoprazole Sodium 80 mg/ 100 mls @ 10 mls/hr 01/06/20 11:45 01/08/20 05:20 Miscellaneous Medication 1 IVPB 100 mls each/ Sodium Chloride INF SARAH Administration Ceftriaxone Sodium 1 gm/ 100 mls @ 200 mls/hr 01/07/20 15:00 01/07/20 15:43 Sodium Chloride IVPB 100 mls 1500 SARAH Administration Sodium Chloride 10 ml 01/06/20 21:00 01/07/20 22:27 Flush - Normal Saline IVF 10 ml Q12HR SARAH Administration - Exam General Appearance: NAD, awake alert ENT: normocephalic atraumatic Neck: supple Heart: RRR, no murmur, no gallops, no rubs Respiratory: CTAB Gastrointestinal: soft, non-tender, distended Neurological: cranial nerve grossly intact, no focal deficits Hosp A/P (1) Upper GI bleed Code(s): K92.2 - GASTROINTESTINAL HEMORRHAGE, UNSPECIFIED Status: Acute (2) Anemia due to chronic blood loss Code(s): D50.0 - IRON DEFICIENCY ANEMIA SECONDARY TO BLOOD LOSS (CHRONIC) Status: Acute (3) Esophageal varices Code(s): I85.00 - ESOPHAGEAL VARICES WITHOUT BLEEDING Status: Acute (4) COPD (chronic obstructive pulmonary disease) Status: Chronic (5) Cirrhosis Code(s): K74.60 - UNSPECIFIED CIRRHOSIS OF LIVER Status: Chronic - Plan S/P EGD with esophageal varices band ligation. H&H stable. Continue Octreotide and Pantoprazol drips and IV ceftriaxone. Plan to taper down octreotide and DC home tomorrow.
--- NOTE | 2020-01-08 15:12 | PQF ---
CLINICAL DOCUMENTATION IMPROVEMENT CLARIFICATION FORM: ICD-10 Updated PLEASE DO AN ADDENDUM TO THE PROGRESS NOTE WITH ANY DOCUMENTATION UPDATES OR ADDITIONS AND CARRY THROUGH TO DC SUMMARY. THANK YOU. DATE: 01/08/20 ATTN: DR. CORTES Please exercise your independent, professional judgment in responding to the clarification form. Clinical indicators are provided on the bottom of this form for your review Please check appropriate box(s) to clarify if the following diagnosis has been ruled in or ruled out: "PNEUMONIA" [ ] Ruled in diagnosis [ ] Continue to treat [ ] Resolved [ ] Ruled out diagnosis [ ] Improving [ ] Cannot rule out diagnosis [ ] Other diagnosis [> ] Unable to determine In addition, please specify: Present on Admission (POA): [ > ] Yes [ ] No [ ] Unable to determine For continuity of documentation, please document condition throughout progress notes and discharge summary. Thank You. CLINICAL INDICATORS - SIGNS / SYMPTOMS / LABS / RESULTS AND LOCATION IN MR ER NOTE: "PNEUMONIA" CT ABDOMEN AND PELVIS 01/05: "CENTRILOBULAR NODULES LEFT LUNG BASE LIKELY SEQUELAE OF RECURRENT ASPIRATION OR PNEUMONIA" RISKS: H/O COPD (H&P 01/05) UPPER GI BLEED WITH ESOPHAGEAL VARICES (H&P 01/05) TREATMENT: IV AZITHROMYCIN (ER) IV ROCEPHIN (ER-PRESENT) URINE BLOOD AND STOOL CULTURES (This form is maintained as a part of the permanent medical record) 2014 [employer]. All Rights Reserved SAP Butcher Apprentice [employer] Winform [email or web address] Office: [phone] [facility]
[2020-01-08] MEDS: cefTRIAXone\\ROCEPHIN 1 GM in Sodium Chloride 0.9% 100 ML IVPB SCH (15:46)
[2020-01-09 05:56] LABS: #Eosinphils 0.2 thou/uL (0.0-0.7); #Lymphocytes 0.8 thou/uL (1.20-3.40); #Monocytes 0.6 thou/uL (0.11-0.59); #Neutrophils 5.2 thou/uL (1.40-6.50); %Basophils 0.2 % (0.0-1.0); %Lymphocytes 11.9 % (21.0-51.0); %Monocytes 8.9 % (0.0-10.0); Hemoglobin 8.3 g/dL (14.0-18.0); Mean Corpuscular HGB CONC 36.3 g/dL (32.0-36.0); Mean Corpuscular Hemoglobin 37.4 pg (27.0-31.0); Mean Platelet Volume 6.9 fL (7.4-10.4); Platelet Count 77 thou/uL (130-400); RBC Distribution Width 13.5 % (11.5-14.5); Red Blood Cell (RBC) Count 2.23 mill/uL (4.70-6.10); White Blood Cell (WBC) Count 6.9 thou/uL (4.8-10.8)
[2020-01-09 06:27] LABS: Anion Gap 8 mmol/L (10-20); BUN (Urea Nitrogen) 16 mg/dL (8.4-25.7); Calc. Creatinine Clearance 77 mL/min (70-130); Calcium 7.7 mg/dL (7.8-10.44); Carbon Dioxide 23 mmol/L (23-31); Chloride 110 mmol/L (98-107); Estimated GFR-MDRD 76; Glucose 101 mg/dL (83-110); Potassium 4.7 mmol/L (3.5-5.1); Sodium 136 mmol/L (136-145)
[2020-01-09] MEDS ORDERED: Spironolactone 25 MG TAB PO SCH (08:00)
[2020-01-09] MEDS ORDERED: Furosemide 20 MG TAB PO SCH (09:00)
[2020-01-09 12:01] VITALS: BP 126/78; TEMP 98.1
--- NOTE | 2020-01-09 12:56 | PDOC.BPN ---
- Brief Progress Note EMMA WILLIS #[id number]
--- NOTE | 2020-01-09 16:13 | EKG ---
Test Reason : Blood Pressure : / mmHG Vent. Rate : 069 BPM Atrial Rate : 069 BPM P-R Int : 162 ms QRS Dur : 090 ms QT Int : 408 ms P-R-T Axes : -14 074 051 degrees QTc Int : 437 ms Normal sinus rhythm Septal infarct , age undetermined Abnormal ECG Confirmed by MILTON FANG M.D. ([id number]), news assignment editor ASHTYN LAUREANO ([id number]) on 01/09/2020 4:12:36 PM Referred By: Confirmed By:MILTON FANG M.D.
--- NOTE | 2020-01-09 21:47 | DIS ---
DATE OF ADMISSION: 01/06/2020 DATE OF DISCHARGE: 01/09/2020 DISCHARGE DIAGNOSES: 1. Upper GI bleeding due to variceal bleed. 2. Chronic liver cirrhosis. 3. Anemia due to chronic blood loss. 4. Stable chronic obstructive pulmonary disease. 5. Possible aspiration pneumonia. DISCHARGE MEDICATIONS: 1. Protonix 40 mg orally daily for 30 days. 2. Furosemide 20 mg orally daily. 3. Aldactone 50 mg orally daily. 4. Lipitor 10 mg orally daily. 5. Symbicort 160/4.5 one puff inhaled daily. 6. DuoNeb 3 mL nebulized daily as needed for shortness of breath. 7. Lactulose 20 g p.o. b.i.d. 8. Lisinopril 40 mg orally daily. 9. Metformin 500 mg orally twice daily. 10. Spiriva 4 g inhaled daily. HISTORY OF PRESENT ILLNESS AND BRIEF HOSPITAL COURSE: The patient is a 74-year-old male with a past medical history of liver cirrhosis, coronary artery disease, COPD, and history of variceal bleeding, who presented to the hospital with complaints of generalized weakness and feeling dizzy for 24 hours. The patient has been having melena for 3 weeks. His hemoglobin level was found to be 9.4, and a CT scan of the abdomen and pelvis did not reveal any acute abnormalities. The patient was admitted to the hospital and GI was consulted. He was placed on IV Protonix and octreotide drip for suspected variceal bleeding. EGD was subsequently performed revealing moderate varices that were banded. The patient tolerated the procedure well, and diet was advanced gradually postoperatively. No further episodes of bleeding were noted, and the patient has been determined stable for discharge. Job ID: [id number]
--- NOTE | 2020-01-11 21:57 | PQF ---
CHERYL ZAMUDIO MOEZ [id number] SURG B- [id number] CLINICAL DOCUMENTATION CLARIFICATION FORM: POST DISCHARGE Addendum to original discharge summary date: ____ Late entry note date: __ DATE:01/11/2020 ATTN: ROMANA CORTES Please exercise your independent, professional judgment in responding to the clarification form. Clinical indicators are provided on the bottom of this form for your review Please check appropriate box(s): kindly clarify the esophageal varices bleeding etiology; [ ] Esophageal varices bleeding due to alcoholic liver cirrhosis [ > ] Esophageal varices bleeding due to portal hypertension [ ] Other diagnosis [ ] Unable to determine For continuity of documentation, please document condition throughout progress notes and discharge summary. Thank You. CLINICAL INDICATORS - SIGNS / SYMPTOMS / LABS Liver cirrhosis due to alcohol abuse. He has quit drinking in 2019-Documented in Consultation on 01/05 by Domenica Nath MD He is know to have portal hypertensive gastropathy and a 4 + esophageal varices. he most like bleeding form esophageal varices-Documented in Consultation on 01/05 by Domenica Nath MD Postoperative diagnosis; Three columns of 4+ varicosities over the distal esophagus, portal hypertensive gastropathy-Documented in OP note on 01/05 by Domenica Nath MD RISK FACTORS Postoperative diagnosis; Three columns of 4+ varicosities over the distal esophagus, portal hypertensive gastropathy-Documented in OP note on 01/05 by Domenica Nath MD TREATMENT: Continue IV octreotide-Documented in Consultation on 01/05 by Domenica Nath MD Esophagogastroduodenoscopy with variceal banding-Documented in OP note on 01/05 by Domenica Nath MD Continue octreotide and pantoprazole drips and IV ceftriaxone -Documented in hospitalist progress note on 01/07 by Romana Cortes MD Lactulose 20 g p.o b.i.d-Documented in discharge summary on 01/08 by Romana Cortes MD SAP Strap Machine Operator Automatic Crystal Reports Winform Viewer (This form is maintained as a part of the permanent medical record) 2014 [employer]. All Rights Reserved [email or web address]
== END 2020-01-09 13:40 | disposition home or self-care (01) | DRG 441 ==
LOC: ERS 08:09 → SURG B 11:18
PROVIDERS: ADMIT Internal Medicine; ATTEND Internal Medicine
PROC: 06L38CZ Occlusion of Esophageal Vein with Extraluminal Device, Via Natural or Artificial Opening Endoscopic (ICD-10-PCS; principal; 2020-01-06)
DX: K76.6 Portal hypertension (principal); I85.01 Esophageal varices with bleeding; J69.0 Pneumonitis due to inhalation of food and vomit; J44.9 Chronic obstructive pulmonary disease, unspecified; E11.9 Type 2 diabetes mellitus without complications; Z95.5 Presence of coronary angioplasty implant and graft; D69.6 Thrombocytopenia, unspecified; E78.5 Hyperlipidemia, unspecified; K70.30 Alcoholic cirrhosis of liver without ascites; K31.89 Other diseases of stomach and duodenum; I25.10 Atherosclerotic heart disease of native coronary artery without angina pectoris; D50.0 Iron deficiency anemia secondary to blood loss (chronic)
CPT/HCPCS: 36415; 36416; 74177; 80048; 80053; 81003; 81015; 82274; 83605; 83690; 84484; 85025; 86850; 86900; 86901; 87040; 87086; 93005; 96361; 96365; 96367; 96375; C9113; J0456; J0696; J2354; J2704; J3490; J7050; Q9967

== ENCOUNTER 2020-03-29 06:03 | Emergency (ER) | payer MEDICARE, MEDICAID, OTHER ==
[2020-03-29 07:05] LABS: #Lymphocytes 0.5 thou/uL (1.20-3.40); #Monocytes 0.6 thou/uL (0.11-0.59); #Neutrophils 8.2 thou/uL (1.40-6.50); %Basophils 0.1 % (0.0-1.0); %Eosinophils 0.3 % (0.0-10.0); %Lymphocytes 5.2 % (21.0-51.0); %Monocytes 6.5 % (0.0-10.0); %Neutrophils 88.1 % (42.0-75.0); Hemoglobin 9.8 g/dL (14.0-18.0); Mean Corpuscular HGB CONC 35.6 g/dL (32.0-36.0); Mean Corpuscular Volume 98.1 fL (78.0-98.0); Mean Platelet Volume 7.4 fL (7.4-10.4); Platelet Count 77 thou/uL (130-400); RBC Distribution Width 13.4 % (11.5-14.5); Red Blood Cell (RBC) Count 2.79 mill/uL (4.70-6.10); White Blood Cell (WBC) Count 9.4 thou/uL (4.8-10.8)
[2020-03-29 07:17] LABS: ALT (SGPT) 11 U/L (8-55); AST (SGOT) 19 U/L (5-34); Albumin 3.3 g/dL (3.4-4.8); Alkaline Phosphatase 81 U/L (40-110); Anion Gap 10 mmol/L (10-20); BUN (Urea Nitrogen) 18 mg/dL (8.4-25.7); Bilirubin, Total 2.2 mg/dL (0.2-1.2); Calc. Creatinine Clearance 0 mL/min (70-130); Calcium 8.8 mg/dL (7.8-10.44); Carbon Dioxide 23 mmol/L (23-31); Chloride 111 mmol/L (98-107); Estimated GFR-MDRD 60; Globulin 2.6 g/dL (2.4-3.5); Glucose 109 mg/dL (83-110); Potassium 4.4 mmol/L (3.5-5.1); Protein, Total 5.9 g/dL (5.8-8.1); Sodium 140 mmol/L (136-145)
--- NOTE | 2020-03-29 09:09 | RAD ---
CHEST 1 VIEW: Date: 03/29/2020 HISTORY: Subjective fever, epistaxis, hernia, COPD. COMPARISON: 12/03/2018. FINDINGS: Bilateral hyperinflation. Minimal increased linear and interstitial markings bilaterally, including t he left base. No confluent pneumonia, overt edema, or pleural effusion. IMPRESSION: Hyperinflation and chronic lung changes. No evidence for pneumonia or other acute process. POS: RRE
[2020-03-29 10:46] LABS: Bacteria/HPF None Seen HPF (None Seen); Bilirubin Negative (Negative); Blood, Urine 2+ (Negative); Clarity Clear (Clear); Glucose, Urine (Dipstick) Normal (Negative); Leukocyte Negative Leu/uL (Negative); Mucous/LPF 1+ LPF (<2+); Nitrite Negative (Negative); Protein, Urine (Dipstick) 30 mg/dL (Neg-Trace); Squamous Epithelial 0-3 HPF (0-3)
[2020-03-29 22:20] LABS: SARS-CoV-2 MS2 Positive; SARS-CoV-2 N Gene Negative; SARS-CoV-2 S Gene Negative; SARS-CoV-2 orf1ab Negative
--- NOTE | 2020-04-02 11:55 | EKG ---
Test Reason : Blood Pressure : / mmHG Vent. Rate : 070 BPM Atrial Rate : 070 BPM P-R Int : 176 ms QRS Dur : 086 ms QT Int : 400 ms P-R-T Axes : 033 069 054 degrees QTc Int : 432 ms Normal sinus rhythm Normal ECG Confirmed by JOSE TREADWELL ([id number]), non linear editor ASHTYN LAUREANO ([id number]) on 04/02/2020 11:55:11 AM Referred By: Confirmed By:JOSE TREADWELL
== END 2020-03-29 11:17 | disposition home or self-care (01) ==
LOC: ERS 06:03
DX: R50.9 Fever, unspecified (principal); Z20.828 Contact with and (suspected) exposure to other viral communicable diseases; E11.9 Type 2 diabetes mellitus without complications; E78.00 Pure hypercholesterolemia, unspecified; I10 Essential (primary) hypertension; J44.9 Chronic obstructive pulmonary disease, unspecified; K74.60 Unspecified cirrhosis of liver; Z79.84 Long term (current) use of oral hypoglycemic drugs; Z79.899 Other long term (current) drug therapy
CPT/HCPCS: 71045; 80053; 85025; 93005; 99284; U0003; 81003; 81015; 87635

== ENCOUNTER 2020-07-21 08:51 | Outpatient (CLI) | payer MEDICARE, MEDICAID ==
--- NOTE | 2020-07-21 09:26 | MMO ---
Bilateral MAMMO Bilat Diag DDI+VICKEY. CLINICAL HISTORY: Patient is 74 years old and is seen for diagnostic exam and palpable abnormality in the left breast. The patient has the following family history of breast cancer: sister. The patient has no personal history of cancer. VIEWS: The views performed were: bilateral craniocaudal with tomosynthesis; bilateral mediolateral oblique with tomosynthesis; bilateral mediolateral with tomosynthesis; and right exaggerated craniocaudal with tomosynthesis. This study has been interpreted with the assistance of computer-aided detection. MAMMOGRAM FINDINGS: There are scattered fibroglandular densities. Bilateral retroaerolar fibroglandular tissue is more prominent on the left consitent with bilateral gynecomastia. There are no suspicious masses, suspicious calcifications, or new areas of architectural distortion. IMPRESSION: THERE IS NO MAMMOGRAPHIC EVIDENCE OF MALIGNANCY. ANY DECISION TO BIOPSY SHOULD BE BASED ON CLINICAL ASSESSMENT. THE RESULTS OF THIS EXAM WERE SENT TO THE PATIENT. ACR BI-RADS Category 2 - Benign finding MAMMOGRAPHY NOTE: 1. A negative mammogram report should not delay a biopsy if a dominant of clinically suspicious mass is present. 2. Approximately 10% to 15% of breast cancers are not detected by mammography. 3. Adenosis and dense breasts may obscure an underlying neoplasm. Reported by: HARJIT CASTILLO MD Electonically Signed: [id number]
== END 2020-07-21 08:52 | disposition home or self-care (01) ==
LOC: BICMAMMO 08:51
PROVIDERS: ATTEND Family Medicine
DX: N63.20 Unspecified lump in the left breast, unspecified quadrant (principal)
CPT/HCPCS: 77066; G0279

== ENCOUNTER 2020-09-21 15:03 | Inpatient (IN) | payer MEDICARE, MEDICAID ==
[~2020-09-21 15:03] MED LIST changes: -ISOVUE-370 76%-LOCM 1 ML ONE; +Iopamidol-370 76% 500 ML 1 ML ONE
[2020-09-21 15:31] LABS: #Eosinphils 0.2 thou/uL (0.0-0.7); #Monocytes 0.6 thou/uL (0.11-0.59); #Neutrophils 4.8 thou/uL (1.40-6.50); %Basophils 0.3 % (0.0-1.0); %Eosinophils 3.2 % (0.0-10.0); %Lymphocytes 15.3 % (21.0-51.0); %Monocytes 8.6 % (0.0-10.0); %Neutrophils 72.6 % (42.0-75.0); Mean Corpuscular Hemoglobin 30.3 pg (27.0-31.0); Mean Corpuscular Volume 91.8 fL (78.0-98.0); Mean Platelet Volume 7.3 fL (7.4-10.4); Platelet Count 98 thou/uL (130-400); RBC Distribution Width 14.5 % (11.5-14.5); Red Blood Cell (RBC) Count 3.63 mill/uL (4.70-6.10); White Blood Cell (WBC) Count 6.7 thou/uL (4.8-10.8)
--- NOTE | 2020-09-21 15:33 | RAD ---
XR Chest 1 View Portable HISTORY: Dyspnea and chest pain COMPARISON: 03/29/2020 FINDINGS: The heart size is normal. The lungs are well expanded without focal areas of consolidation, pneumothorax or pleural effusions. Mild chronic changes again seen. IMPRESSION: No radiographic evidence of acute cardiopulmonary process.
[2020-09-21 15:57] LABS: ALT (SGPT) 11 U/L (8-55); AST (SGOT) 19 U/L (5-34); Alkaline Phosphatase 94 U/L (40-110); Anion Gap 15 mmol/L (10-20); BUN (Urea Nitrogen) 30 mg/dL (8.4-25.7); Bilirubin, Total 1.7 mg/dL (0.2-1.2); Calc. Creatinine Clearance 0 mL/min (70-130); Calcium 9.9 mg/dL (7.8-10.44); Carbon Dioxide 23 mmol/L (23-31); Chloride 108 mmol/L (98-107); Estimated GFR-MDRD 58; Globulin 3.6 g/dL (2.4-3.5); Glucose 104 mg/dL (83-110); Potassium 4.8 mmol/L (3.5-5.1); Protein, Total 7.6 g/dL (5.8-8.1); Sodium 141 mmol/L (136-145)
[2020-09-21] MEDS ORDERED: Albuterol 200 PUFF (6.7GM INHALER) ONE (18:25)
[2020-09-21] MEDS ORDERED: Magnesium 2 GM/50 ML BAG (IN WATER) ONE (18:31)
[2020-09-21] MEDS ORDERED: Dexamethasone 10 MG/ML VIAL ONE (18:32)
[2020-09-21] MEDS ORDERED: Dexamethasone 4 mg/ml Vial ONE (18:33)
--- NOTE | 2020-09-21 18:54 | CT ---
CT BRAIN NONCONTRAST: DATE: 09/21/2020 HISTORY: 75-year-old male with altered mental status: Confusion FINDINGS: There is no evidence of acute intra-axial or extra-axial hemorrhage. There is no midline shift or any other mass effect. There is no extra-axial fluid collection. The ventricles are normal in size and configuration. The tympanomastoid cavities, and the upper portions of the paranasal sinuses included in these images, are grossly clear. Calvarium is intact. IMPRESSION: Normal.
--- NOTE | 2020-09-21 19:19 | CT ---
CT angiogram of the chest: 09/21/2020 COMPARISON: None HISTORY: Short of breath, confusion, elevated d-dimer, assess for pulmonary arterial embolism TECHNIQUE: Axial CT imaging at 2.5 mm intervals through the chest with IV contrast. Coronal and sagit cassy 3-D reformatted imaging obtained. FINDINGS: Secondary to poor timing of the contrast bolus, there is suboptimal opacification of the pu lmonary arterial vasculature. This study is inadequate to evaluate for pulmonary embolism. No axillary, hilar, or mediastinal lymphadenopathy is seen. There is multifocal atherosclerotic calci fication of the coronary arterial vasculature. Partially imaged upper abdomen demonstrates cirrhotic configuration of the liver with splenomegaly (1 6.8 cm), evidence of portal hypertension. There is nonspecific wall thickening of the gastric antrum. Varices are seen within the upper abdomen consistent with portal hypertension. No significant pleural, pericardial, or mediastinal fluid. Scattered atherosclerotic calcification of the aortic arch, descending thoracic aorta, and proximal great vessels. Prominent bilateral emphysematous changes are noted. There is extensive nonspecific reticulonodular opacities throughout the left lower lobe, most promine nt within the inferior posterior aspect of the left lower lobe. There is diffuse bronchiectasis of the left lower lobe with bronchial wall thickening. There are areas of posterior medial right lower lobe bronchiectatic change and bronchial wall thicken ing as well with scattered areas of reticulonodular density, less conspicuous than in the left lower lobe. Review of the osseous structures demonstrate no worrisome lytic or blastic bone lesions. IMPRESSION: Poor opacification of the pulmonary arterial vasculature limiting assessment for pulmonar y arterial embolism Extensive atherosclerotic disease. Extensive bilateral lower lobe reticulonodular densities, left greater than right, with bronchiectasi s and bronchial wall thickening. Findings suggest nonspecific atypical infectious pneumonitis. Findings may be on the basis of chronic aspiration. Follow-up imaging following treatment advised to document resolution. Cirrhotic configuration of the liver with evidence of portal hypertension.
[2020-09-21] MEDS ORDERED: cefTRIAXone\\ROCEPHIN 2 GM VIAL ONE (20:13)
[2020-09-21] MEDS ORDERED: Azithromycin 500 MG VIAL ONE (21:06)
[2020-09-21 21:18] LABS: SARS-CoV-2 NAA Rapid Test Not Detected (NotDetected)
[2020-09-21 22:13] LABS: Troponin I Less than 0.010 ng/mL (< 0.028)
[2020-09-22] MEDS ORDERED: Ondansetron ODT 4 MG TAB PO PRN (00:47)
[2020-09-22] MEDS ORDERED: Acetaminophen 325 MG TAB PO PRN (00:47)
[2020-09-22] MEDS ORDERED: Ondansetron PF 4 MG/2 ML Vial IVP PRN (00:47)
[2020-09-22] MEDS ORDERED: Guaifenesin DM 100-10/5 ML UDCUP PO PRN (00:47)
[2020-09-22] MEDS ORDERED: HYDROcodone/Acetaminophen 5/325 mg Tablet PO PRN (00:47)
[2020-09-22] MEDS ORDERED: Calcium Carbonate 500 MG ChewTAB PO PRN (00:47)
[2020-09-22] MEDS ORDERED: Acetaminophen 650 MG Suppository PR PRN (00:47)
--- NOTE | 2020-09-22 00:53 | PDOC.HHP ---
Hospitalist HPI - History of Present Illness dyspnea History of Present Illness: Case of an 75-year-old with pmhx of htn, dm cirrohisis copd and hypercholesterolemia who comes to hospital due to multiple complaints including shortness of breath, worsening cough generalized weakness, some confusion and general malaise. he states his cough if non productive, denies any fever chills abd pain dysruia or diarrhea Hospitalist ROS - Review of Systems All other systems reviewed; all pertinent +/- noted in HPI/Subj Hospitalist History - Past Surgical History Other Surgical History: bladder sling - Family History Family History: reports: no pertinent history - Social History Smoking Status: Never smoker Alcohol: reports: None Drugs: reports: none Living Situation: With Family - Exam General Appearance: NAD, awake alert Eye: PERRL, anicteric sclera ENT: normocephalic atraumatic, no oropharyngeal lesions Neck: supple, symmetric, no JVD Heart: RRR, no murmur, no gallops Respiratory: no rales, no ronchi, tachypneic, wheezes Gastrointestinal: soft, non-tender, non-distended, normal bowel sounds Extremities: no cyanosis, no clubbing, no edema Skin: normal turgor, no lesions, no rashes Neurological: cranial nerve grossly intact, normal sensation to touch, no weakne ss Musculoskeletal: normal tone, normal strength, no muscle wasting Psychiatric: normal affect, normal behavior, A&O x 3 Hospitalist Results - Labs Result Diagrams: 09/21/20 15:20 09/21/20 15:20 Lab results: WBC 6.7 thou/uL (4.8-10.8) 09/21/20 15:20 Hgb 11.0 g/dL (14.0-18.0) L 09/21/20 15:20 Hct 33.3 % (42.0-52.0) L 09/21/20 15:20 MCV 91.8 fL (78.0-98.0) 09/21/20 15:20 Plt Count 98 thou/uL (130-400) L 09/21/20 15:20 Neutrophils % 72.6 % (42.0-75.0) 09/21/20 15:20 Sodium 141 mmol/L (136-145) 09/21/20 15:20 Potassium 4.8 mmol/L (3.5-5.1) 09/21/20 15:20 Chloride 108 mmol/L (98-107) H 09/21/20 15:20 Carbon Dioxide 23 mmol/L (23-31) 09/21/20 15:20 BUN 30 mg/dL (8.4-25.7) H 09/21/20 15:20 Creatinine 1.22 mg/dL (0.7-1.3) 09/21/20 15:20 Glucose 104 mg/dL (83-110) 09/21/20 15:20 Lactic Acid 1.3 mmol/L (0.5-2.2) 09/21/20 17:02 Calcium 9.9 mg/dL (7.8-10.44) 09/21/20 15:20 Total Bilirubin 1.7 mg/dL (0.2-1.2) H 09/21/20 15:20 AST 19 U/L (5-34) 09/21/20 15:20 ALT 11 U/L (8-55) 09/21/20 15:20 Alkaline Phosphatase 94 U/L (40-110) 09/21/20 15:20 Ammonia 41 umol/L (18-72) 09/21/20 18:34 Troponin I Less than 0.010 ng/mL (< 0.028) 09/21/20 18:34 B-Natriuretic Peptide 60.5 pg/mL (0-100) 09/21/20 17:02 Serum Total Protein 7.6 g/dL (5.8-8.1) 09/21/20 15:20 Albumin 4.0 g/dL (3.4-4.8) 09/21/20 15:20 Hospitalist H&P A/P - Problem (1) COPD exacerbation Code(s): J44.1 - CHRONIC OBSTRUCTIVE PULMONARY DISEASE W (ACUTE) EXACERBATION Status: Acute (2) HLD (hyperlipidemia) Code(s): E78.5 - HYPERLIPIDEMIA, UNSPECIFIED Status: Acute (3) Cirrhosis Code(s): K74.60 - UNSPECIFIED CIRRHOSIS OF LIVER Status: Chronic (4) Diabetes mellitus Code(s): E11.9 - TYPE 2 DIABETES MELLITUS WITHOUT COMPLICATIONS Status: Chronic (5) Pneumonia Code(s): J18.9 - PNEUMONIA, UNSPECIFIED ORGANISM Status: Acute (6) HTN (hypertension) Code(s): I10 - ESSENTIAL (PRIMARY) HYPERTENSION Status: Acute - Plan Plan: 75y/o male with the stated pmhx who presents to hospital due to copd exacerbation copd exacerbation secondary to pneumonia - chest ct consistent with b/l atypical infectious pneumonitis, suspicious for aspiration. has a previous abd ct which showed Centrilobular nodules on left lung base likely sequelae of recurrent aspiration or pneumonia. - will cover w zosyn - speech evaluation due to possbile recurrent aspirations - duo nebs - iv steroids - 02 supplementation htn/ dm / cirrohosis - continue home meds
[2020-09-22 01:56] VITALS: BMI 26.2
[2020-09-22 02:21] LABS: Troponin I Less than 0.010 ng/mL (< 0.028)
[2020-09-22 04:57] LABS: ALT (SGPT) 9 U/L (8-55); AST (SGOT) 15 U/L (5-34); Albumin 3.4 g/dL (3.4-4.8); Alkaline Phosphatase 75 U/L (40-110); Anion Gap 12 mmol/L (10-20); BUN (Urea Nitrogen) 30 mg/dL (8.4-25.7); Calc. Creatinine Clearance 70 mL/min (70-130); Calcium 9.3 mg/dL (7.8-10.44); Carbon Dioxide 21 mmol/L (23-31); Chloride 112 mmol/L (98-107); Estimated GFR-MDRD 73; Globulin 3.2 g/dL (2.4-3.5); Glucose 149 mg/dL (83-110); Potassium 4.8 mmol/L (3.5-5.1); Protein, Total 6.6 g/dL (5.8-8.1); Sodium 140 mmol/L (136-145)
[2020-09-22 05:52] LABS: Band 8 % (5-11); Hemoglobin 9.7 g/dL (14.0-18.0); Lymphocytes 23 % (21-51); MDiff Complete? YES; Mean Corpuscular HGB CONC 33.7 g/dL (32.0-36.0); Mean Corpuscular Hemoglobin 30.8 pg (27.0-31.0); Mean Corpuscular Volume 91.5 fL (78.0-98.0); Mean Platelet Volume 7.5 fL (7.4-10.4); Monocytes 1 % (0-10); Neutrophil 68 % (42-75); Platelet Count 66 thou/uL (130-400); Platelet Morphology Comment Appears Decreased; RBC Distribution Width 14.3 % (11.5-14.5); Red Blood Cell (RBC) Count 3.14 mill/uL (4.70-6.10); White Blood Cell (WBC) Count 2.9 thou/uL (4.8-10.8)
[2020-09-22] MEDS: methylPREDNISolone Sod Succ 40 MG VIAL IVP SCH ×4 (06:10→23:31)
[2020-09-22] MEDS: Piperacillin/Tazobactam 4.5 GM in Sodium Chloride 0.9% 100 ML IVPB SCH ×4 (06:10→23:31)
[2020-09-22] MEDS ORDERED: FLU VACC QS2020-21(65YR UP)/PF 240 MCG/0.7 ML SYRINGE IM ONE (09:00)
[2020-09-22] MEDS: Enoxaparin Sodium 40 MG/0.4 ML SYRINGE SC SCH (09:16)
[2020-09-22] MEDS ORDERED: Dextrose 50% Abboject 50 ML SYRINGE SLOW IVP PRN (19:28)
[2020-09-22] MEDS ORDERED: Dextrose 5% in Water 1,000 ML IV PRN (19:28)
[2020-09-22] MEDS ORDERED: HumaLOG 300 UNITS/3 ML VIAL SC PRN (19:28)
[2020-09-22] MEDS: HumaLOG 300 UNITS/3 ML VIAL SC PRN (21:28)
[2020-09-23] MEDS: methylPREDNISolone Sod Succ 40 MG VIAL IVP SCH ×2 (05:45→11:45)
[2020-09-23] MEDS: Piperacillin/Tazobactam 4.5 GM in Sodium Chloride 0.9% 100 ML IVPB SCH ×2 (05:45→11:44)
[2020-09-23] MEDS ORDERED: Spironolactone 25 MG TAB PO SCH (08:00)
[2020-09-23 08:11] LABS: #Lymphocytes 0.5 thou/uL (1.20-3.40); #Monocytes 0.2 thou/uL (0.11-0.59); #Neutrophils 13.2 thou/uL (1.40-6.50); %Eosinophils 0.2 % (0.0-10.0); %Lymphocytes 3.2 % (21.0-51.0); %Monocytes 1.6 % (0.0-10.0); %Neutrophils 95.1 % (42.0-75.0); Hemoglobin 10.3 g/dL (14.0-18.0); Mean Corpuscular HGB CONC 33.3 g/dL (32.0-36.0); Mean Corpuscular Hemoglobin 31.3 pg (27.0-31.0); Mean Corpuscular Volume 93.7 fL (78.0-98.0); Mean Platelet Volume 8.1 fL (7.4-10.4); Platelet Count 75 thou/uL (130-400); RBC Distribution Width 14.8 % (11.5-14.5); Red Blood Cell (RBC) Count 3.29 mill/uL (4.70-6.10); White Blood Cell (WBC) Count 13.9 thou/uL (4.8-10.8)
[2020-09-23 08:29] LABS: Anion Gap 16 mmol/L (10-20); BUN (Urea Nitrogen) 35 mg/dL (8.4-25.7); Calc. Creatinine Clearance 48 mL/min (70-130); Calcium 9.1 mg/dL (7.8-10.44); Carbon Dioxide 17 mmol/L (23-31); Chloride 111 mmol/L (98-107); Estimated GFR-MDRD 48; Glucose 136 mg/dL (83-110); Potassium 4.2 mmol/L (3.5-5.1); Sodium 140 mmol/L (136-145)
[2020-09-23] MEDS ORDERED: Lisinopril 20 MG TAB PO SCH (09:00)
[2020-09-23] MEDS ORDERED: Furosemide 20 MG TAB PO SCH (09:00)
[2020-09-23] MEDS: Enoxaparin Sodium 40 MG/0.4 ML SYRINGE SC SCH (09:12)
[2020-09-23 11:29] VITALS: BP 138/64; TEMP 97.8
--- NOTE | 2020-09-23 11:29 | PDOC.DS.DS ---
Provider - Provider Date of Admission: 09/21/20 21:28 Date of Discharge: 09/23/20 Admitting Provider: Koby Collier Primary Care Physician: Milagro Diallo MD Course - Hospital Course Hospital Course: Discharge diagnosis: 1. COPD exacerbation 2. Aspiration pneumonia Hospital course: Patient is a pleasant 75-year-old gentleman who was admitted to the hospital on September 22, 2020 for COPD exacerbation and aspiration pneumonia. CT scan of the chest showed extensive bilateral lower lobe reticulonodular densities, left greater than right, with bronchiectasis and bronchial wall thickening. Findings are suggestive of nonspecific atypical infectious pneumonitis and may be on the basis of chronic aspiration. Patient improved with oxygen, steroids, bronchodilators and antibiotics. He is being discharged home in a stable condition. He was evaluated by speech therapist. Advised to have modified barium swallow study as outpatient. Creatinine is 1.44 on the day of discharge. He has been advised to stop Metformin start glyburide and have his Chem-7 checked in 3 to 5 days per primary care provider's office and to resume Metformin when cleared by primary care provider. I am also discontinuing his lisinopril for now, starting him on amlodipine 5 mg daily and advising him to follow-up with primary care provider regarding resuming lisinopril. I am continuing him on spironolactone and furosemide at this time. He has also been advised to check his blood pressure, heart rate and blood sugars 3 times a day and shows readings to primary care provider. At the time of this dictation, preliminary blood cultures are negative. He is advised to follow-up with primary care provider for final blood culture result. Many thanks for allowing me to participate in your patient's care. Please feel free to contact me with any questions or concerns. Resuscitation Status: 09/22/20 00:47 Resuscitation Status Routine Resuscitation Status: FULL: Full Resuscitation - Labs Lab Results: 09/23/20 08:01 09/23/20 08:01 Abnormal Lab Results - Last 48 hrs 09/21/20 15:20: RBC 3.63 L, Hgb 11.0 L, Hct 33.3 L, Plt Count 98 L, MPV 7.3 L, Lymphocytes % 15.3 L, Lymphocytes # 1.0 L, Monocytes # 0.6 H 09/21/20 15:20: Chloride 108 H, BUN 30 H, Total Bilirubin 1.7 H, Globulin 3.6 H, Albumin/Globulin Ratio 1.1 L 09/21/20 17:02: D-Dimer 3.58 H 09/22/20 04:14: Chloride 112 H, Carbon Dioxide 21 L, BUN 30 H, Albumin/Globulin Ratio 1.1 L 09/22/20 04:14: WBC 2.9 L, RBC 3.14 L, Hgb 9.7 L, Hct 28.7 L, Plt Count 66 L, Plt Morphology Comment Appears Decreased L 09/23/20 08:01: WBC 13.9 H, RBC 3.29 L, Hgb 10.3 L, Hct 30.9 L, MCH 31.3 H, RDW 14.8 H, Plt Count 75 L, Neutrophils % 95.1 H, Lymphocytes % 3.2 L, Neutrophils # 13.2 H, Lymphocytes # 0.5 L 09/23/20 08:01: Chloride 111 H, Carbon Dioxide 17 L, BUN 35 H, Creatinine 1.44 H Microbiology - Entire Visit 09/21/20 17:02 Venous blood - Left Arm Blood Culture - Preliminary Specimen has been received and culture in progress. No Growth to date. 09/21/20 17:12 Venous blood - Right Hand Blood Culture - Preliminary Specimen has been received and culture in progress. No Growth to date. 09/21/20 19:57 Nasal swab Influenza Types A,B Direct EIA - Final - Physical Exam Vitals: Vital Signs (12 hours) Temp Pulse Resp BP BP BP Pulse Ox 09/23/20 09:12 161/68 H 09/23/20 08:35 75 16 09/23/20 07:12 97.9 F 75 16 161/68 H 95 09/23/20 04:00 97.4 F L 72 20 123/59 L 97 09/23/20 01:10 98 09/23/20 01:07 74 16 98 Weight Weight 172 lb 12.8 oz Physical Exam: The patient was seen and examined on the day of discharge. Patient denies chest pain or shortness of breath. Vital signs are stable. S1 and S2 are heard. Lungs are clear to auscultation bilaterally. Problem - Time spent with Patient (mins): 33 Plan - Discharge Medications Prescriptions: Doxycycline [Vibramycin] 100 mg PO Q12HR #14 cap Amoxicillin/Potassium Clav [Augmentin 875-125 Tablet] 1 each PO BID #14 tablet glipiZIDE [Glucotrol XL] 2.5 mg PO QAM-WM #30 tab Amlodipine [Norvasc] 5 mg PO DAILY #30 tab predniSONE 20 mg PO ASDIR #16 tab Home Medications: Medication Instructions Recorded Confirmed Type Furosemide [Lasix] 20 mg PO DAILY #30 tab 07/09/19 09/22/20 Rx Spironolactone [Aldactone] 50 mg PO QAM-WM #30 tab 07/09/19 09/22/20 Rx Pantoprazole [Protonix] 40 mg PO DAILY #30 tab 01/09/20 09/22/20 Rx Amlodipine [Norvasc] 5 mg PO DAILY #30 tab 09/23/20 Rx Amoxicillin/Potassium Clav 1 each PO BID #14 tablet 09/23/20 Rx [Augmentin 875-125 Tablet] Doxycycline [Vibramycin] 100 mg PO Q12HR #14 cap 09/23/20 Rx glipiZIDE [Glucotrol XL] 2.5 mg PO QAM-WM #30 tab 09/23/20 Rx predniSONE 20 mg PO ASDIR #16 tab 09/23/20 Rx Allergies: No Known Allergies Allergy (Verified 04/29/19 11:20) - Discharge Instructions Discharge Instructions:: Maintain good oral fluid intake. Have your Chem-7 checked through primary care provider in 3 to 5 days. Have a modified barium swallow study done through primary care provider's office. Stop Metformin until okay to resume by primary care provider. Check your blood sugars 3 times a day and shows readings to primary care provider. Follow-up with primary care provider for final blood cul ture result. Activity:: Activity as Tolerated Nourishment:: Diabetic Diet, Heart Healthy Diet - Follow up Plan Referrals: Milagro Diallo MD [Primary Care Provider] - 3 Days (Please call office to schedule a follow up appointment. Please speak with your PCP about having an out patient Barium Swallow Study to further evaluate your swallow and see if you may be aspirating.) Disposition: HOME Quality - Care Measures CORE MEASURES:: N/A
[2020-09-23] MEDS: HumaLOG 300 UNITS/3 ML VIAL SC PRN (11:45)
== END 2020-09-23 13:40 | disposition home or self-care (01) | DRG 178 ==
LOC: ERS 15:03 → OBSVTOIN 21:28 → 2NO 21:28
PROVIDERS: ADMIT Internal Medicine; ATTEND Internal Medicine
DX: J69.0 Pneumonitis due to inhalation of food and vomit (principal); J44.1 Chronic obstructive pulmonary disease with (acute) exacerbation; E78.00 Pure hypercholesterolemia, unspecified; I10 Essential (primary) hypertension; K74.60 Unspecified cirrhosis of liver; Z20.828 Contact with and (suspected) exposure to other viral communicable diseases; E11.9 Type 2 diabetes mellitus without complications; Z95.5 Presence of coronary angioplasty implant and graft; Z79.899 Other long term (current) drug therapy; Z79.84 Long term (current) use of oral hypoglycemic drugs
CPT/HCPCS: 36415; 36416; 70450; 71045; 71275; 80048; 80053; 82140; 83605; 83880; 84145; 84484; 85007; 85025; 85027; 85379; 87040; 87804; 90471; 90732; 93005; 94640; 96365; 96367; 96372; 96375; 96376; G0009; G0378; J0456; J0696; J1100; J1650; J2543; J2920; J3475; J3490; J7620; U0002

== ENCOUNTER 2020-10-22 09:30 | Emergency (ER) | payer MEDICARE, MEDICAID ==
--- NOTE | 2020-10-22 10:25 | RAD ---
Exam: Chest one view HISTORY:Pain. Evaluate for constipation. Comparison: 09/21/2020 FINDINGS: Cardiac silhouette: Normal Aorta: Unremarkable Pulmonary vessels: Normal Costophrenic angles: Clear LUNGS: Chronic changes. No mass or consolidation. Pneumothorax: None Osseous abnormalities: None IMPRESSION: No acute cardiopulmonary process.
[2020-10-22 10:56] LABS: #Eosinphils 0.2 thou/uL (0.0-0.7); #Neutrophils 4.7 thou/uL (1.40-6.50); %Basophils 0.5 % (0.0-1.0); %Eosinophils 2.6 % (0.0-10.0); %Lymphocytes 15.1 % (21.0-51.0); %Monocytes 14.5 % (0.0-10.0); %Neutrophils 67.3 % (42.0-75.0); Mean Corpuscular HGB CONC 33.9 g/dL (32.0-36.0); Mean Corpuscular Hemoglobin 31.5 pg (27.0-31.0); Mean Corpuscular Volume 92.9 fL (78.0-98.0); Mean Platelet Volume 6.7 fL (7.4-10.4); Platelet Count 154 thou/uL (130-400); RBC Distribution Width 17.3 % (11.5-14.5); White Blood Cell (WBC) Count 6.9 thou/uL (4.8-10.8)
[2020-10-22] MEDS ORDERED: Albuterol 200 PUFF (6.7GM INHALER) ONE (11:02)
[2020-10-22] MEDS ORDERED: predniSONE 20 MG TAB ONE (11:07)
[2020-10-22 11:18] LABS: ALT (SGPT) 12 U/L (8-55); AST (SGOT) 21 U/L (5-34); Albumin 3.5 g/dL (3.4-4.8); Alkaline Phosphatase 104 U/L (40-110); Anion Gap 12 mmol/L (10-20); BUN (Urea Nitrogen) 24 mg/dL (8.4-25.7); Calc. Creatinine Clearance 0 mL/min (70-130); Calcium 9.1 mg/dL (7.8-10.44); Carbon Dioxide 30 mmol/L (23-31); Chloride 106 mmol/L (98-107); Globulin 3.3 g/dL (2.4-3.5); Glucose 102 mg/dL (83-110); Potassium 5.8 mmol/L (3.5-5.1); Protein, Total 6.8 g/dL (5.8-8.1); Sodium 142 mmol/L (136-145)
== END 2020-10-22 12:08 | disposition home or self-care (01) ==
LOC: ERS 09:30
DX: J43.9 Emphysema, unspecified (principal)
CPT/HCPCS: 36415; 71045; 80053; 83880; 84484; 85025; 93005; J7512

== ENCOUNTER 2021-01-20 11:41 | Outpatient (CLI) | payer MEDICARE, MEDICAID ==
[2021-01-20 18:36] LABS: SARS-CoV-2 PCR by NAA Not Detected (NotDetected)
== END 2021-01-20 11:42 | disposition home or self-care (01) ==
LOC: LABBT 11:41
PROVIDERS: ATTEND Internal Medicine Gastroenterology
DX: Z20.822 Contact with and (suspected) exposure to COVID-19 (principal)
CPT/HCPCS: U0003; U0005; 87635

== ENCOUNTER 2021-01-25 06:03 | Day surgery (SDC) | payer MEDICARE, MEDICAID ==
[2021-01-24 10:31] VITALS: BMI 25.0
[2021-01-25] MEDS ORDERED: PROPOFOL 200 MG/20 ML VIAL ONE (09:02)
[2021-01-25] MEDS ORDERED: Lidocaine 1% PF 5 ML VIAL ONE (09:02)
[2021-01-25 10:19] LABS: #Lymphocytes 0.7 thou/uL (1.20-3.40); #Monocytes 0.7 thou/uL (0.11-0.59); #Neutrophils 5.3 thou/uL (1.40-6.50); %Basophils 0.2 % (0.0-1.0); %Eosinophils 0.6 % (0.0-10.0); %Lymphocytes 10.2 % (21.0-51.0); %Monocytes 10.3 % (0.0-10.0); %Neutrophils 78.6 % (42.0-75.0); Hemoglobin 9.4 g/dL (14.0-18.0); Mean Corpuscular HGB CONC 32.7 g/dL (32.0-36.0); Mean Corpuscular Hemoglobin 32.4 pg (27.0-31.0); Mean Platelet Volume 7.5 fL (7.4-10.4); Platelet Count 113 thou/uL (130-400); RBC Distribution Width 14.4 % (11.5-14.5); Red Blood Cell (RBC) Count 2.91 mill/uL (4.70-6.10); White Blood Cell (WBC) Count 6.8 thou/uL (4.8-10.8)
[2021-01-25 10:35] LABS: ALT (SGPT) 9 U/L (8-55); AST (SGOT) 16 U/L (5-34); Albumin 2.9 g/dL (3.4-4.8); Alkaline Phosphatase 74 U/L (40-110); Anion Gap 10 mmol/L (10-20); BUN (Urea Nitrogen) 18 mg/dL (8.4-25.7); Bilirubin, Total 2.2 mg/dL (0.2-1.2); Calc. Creatinine Clearance 64 mL/min (70-130); Calcium 8.5 mg/dL (7.8-10.44); Carbon Dioxide 27 mmol/L (23-31); Chloride 106 mmol/L (98-107); Globulin 3.4 g/dL (2.4-3.5); Glucose 106 mg/dL (83-110); Potassium 4.6 mmol/L (3.5-5.1); Protein, Total 6.3 g/dL (5.8-8.1); Sodium 138 mmol/L (136-145)
[2021-01-25 10:36] LABS: INR-International Normal Ratio 1.4
== END 2021-01-25 11:10 | disposition home or self-care (01) ==
LOC: SDC 06:03
PROVIDERS: ATTEND Internal Medicine Gastroenterology
PROC: 06L38CZ Occlusion of Esophageal Vein with Extraluminal Device, Via Natural or Artificial Opening Endoscopic (ICD-10-PCS; principal; 2021-01-25)
DX: K76.6 Portal hypertension (principal); K31.89 Other diseases of stomach and duodenum; K74.60 Unspecified cirrhosis of liver; I85.10 Secondary esophageal varices without bleeding; J44.9 Chronic obstructive pulmonary disease, unspecified; E11.9 Type 2 diabetes mellitus without complications; Z79.84 Long term (current) use of oral hypoglycemic drugs; Z79.899 Other long term (current) drug therapy
CPT/HCPCS: 36415; 80053; 82105; 85025; 85610; J2704

== ENCOUNTER 2021-02-07 09:16 | Outpatient (CLI) | payer MEDICARE, MEDICAID | END 2021-02-07 09:17 | disposition home or self-care (01) | LOC: BICULT 09:16 | PROVIDERS: ATTEND Physician Assistant Medical | DX: R60.0 Localized edema (principal); R06.00 Dyspnea, unspecified; K74.60 Unspecified cirrhosis of liver; I85.10 Secondary esophageal varices without bleeding; R18.8 Other ascites ==

== ENCOUNTER 2021-02-20 08:18 | Outpatient (CLI) | payer MEDICARE, MEDICAID | END 2021-02-20 08:19 | disposition home or self-care (01) | LOC: BICRAD 08:18 | PROVIDERS: ATTEND Internal Medicine Critical Care Medicine | DX: R06.09 Other forms of dyspnea (principal) | CPT/HCPCS: 71046 ==

== ENCOUNTER 2021-03-08 06:34 | Outpatient (CLI) | payer MEDICARE, MEDICAID ==
[2021-03-08 17:05] LABS: SARS-CoV-2 PCR by NAA Not Detected (NotDetected)
== END 2021-03-08 06:35 | disposition home or self-care (01) ==
LOC: LABBT 06:34
PROVIDERS: ATTEND Internal Medicine Gastroenterology
DX: Z01.812 Encounter for preprocedural laboratory examination (principal); D64.9 Anemia, unspecified; K59.00 Constipation, unspecified; I85.00 Esophageal varices without bleeding; R18.8 Other ascites; Z20.822 Contact with and (suspected) exposure to COVID-19
CPT/HCPCS: U0003; U0005; 87635

== ENCOUNTER 2021-03-13 07:09 | Day surgery (SDC) | payer MEDICARE, MEDICAID ==
[2021-03-10 11:14] VITALS: BMI 25.0
[2021-03-13] MEDS ORDERED: Albuterol Sulfate 1.25 MG/3 ML NEB NEB SCH (08:45)
[2021-03-13] MEDS ORDERED: PROPOFOL 200 MG/20 ML VIAL ONE (09:42)
[2021-03-13] MEDS ORDERED: Lidocaine 1% PF 5 ML VIAL ONE (09:42)
== END 2021-03-13 11:15 | disposition home or self-care (01) ==
LOC: SDC 07:09
PROVIDERS: ATTEND Internal Medicine Gastroenterology
PROC: 06L38CZ Occlusion of Esophageal Vein with Extraluminal Device, Via Natural or Artificial Opening Endoscopic (ICD-10-PCS; principal; 2021-03-13)
DX: K74.60 Unspecified cirrhosis of liver (principal); I85.10 Secondary esophageal varices without bleeding; K31.819 Angiodysplasia of stomach and duodenum without bleeding; E11.9 Type 2 diabetes mellitus without complications; J98.4 Other disorders of lung; Z87.891 Personal history of nicotine dependence; Z79.84 Long term (current) use of oral hypoglycemic drugs; Z79.899 Other long term (current) drug therapy
CPT/HCPCS: J2704

== ENCOUNTER 2021-04-15 18:22 | Emergency (ER) | payer MEDICARE, MEDICAID ==
[2021-04-15 20:17] LABS: #Eosinphils 0.1 thou/uL (0.0-0.7); #Lymphocytes 0.8 thou/uL (1.20-3.40); #Monocytes 1.2 thou/uL (0.11-0.59); %Basophils 0.2 % (0.0-1.0); %Eosinophils 0.7 % (0.0-10.0); %Lymphocytes 6.5 % (21.0-51.0); %Monocytes 10.2 % (0.0-10.0); %Neutrophils 82.4 % (42.0-75.0); Hemoglobin 12.4 g/dL (14.0-18.0); Mean Corpuscular HGB CONC 35.5 g/dL (32.0-36.0); Mean Corpuscular Hemoglobin 34.6 pg (27.0-31.0); Mean Corpuscular Volume 97.4 fL (78.0-98.0); Mean Platelet Volume 7.6 fL (7.4-10.4); Platelet Count 149 thou/uL (130-400); RBC Distribution Width 15.2 % (11.5-14.5); Red Blood Cell (RBC) Count 3.58 mill/uL (4.70-6.10); White Blood Cell (WBC) Count 12.1 thou/uL (4.8-10.8)
[2021-04-15 20:39] LABS: ALT (SGPT) 9 U/L (8-55); AST (SGOT) 22 U/L (5-34); Albumin 3.7 g/dL (3.4-4.8); Alkaline Phosphatase 93 U/L (40-110); Anion Gap 16 mmol/L (10-20); BUN (Urea Nitrogen) 25 mg/dL (8.4-25.7); Bilirubin, Total 2.1 mg/dL (0.2-1.2); Calc. Creatinine Clearance 0 mL/min (70-130); Calcium 9.6 mg/dL (7.8-10.44); Carbon Dioxide 22 mmol/L (23-31); Chloride 105 mmol/L (98-107); Globulin 3.9 g/dL (2.4-3.5); Glucose 102 mg/dL (83-110); Lipase 27 U/L (8-78); Potassium 5.1 mmol/L (3.5-5.1); Protein, Total 7.6 g/dL (5.8-8.1); Sodium 138 mmol/L (136-145)
[2021-04-15 20:53] LABS: Bacteria/HPF None Seen HPF (None Seen); Bilirubin Negative (Negative); Blood, Urine 2+ (Negative); Clarity Clear (Clear); Glucose, Urine (Dipstick) Normal (Negative); Ketone, Urine Negative (Negative); Leukocyte Negative Leu/uL (Negative); Nitrite Negative (Negative); Protein, Urine (Dipstick) Negative (Neg-Trace); Specific Gravity, Urine 1.014 (1.002-1.036); Squamous Epithelial None Seen HPF (0-3); Urobilinogen Normal mg/dL (Less than 2); WBC/HPF 0-3 HPF (0-3)
[2021-04-15 21:24] LABS: SARS-CoV-2 NAA Rapid Test Not Detected (NotDetected)
== END 2021-04-15 22:40 | disposition home or self-care (01) ==
LOC: ERS 18:22
DX: R29.810 Facial weakness (principal); Z20.822 Contact with and (suspected) exposure to COVID-19; E11.9 Type 2 diabetes mellitus without complications; E78.5 Hyperlipidemia, unspecified; E78.00 Pure hypercholesterolemia, unspecified; I10 Essential (primary) hypertension; J44.9 Chronic obstructive pulmonary disease, unspecified; Z87.891 Personal history of nicotine dependence
CPT/HCPCS: 70450; 71045; 80053; 82962; 83690; 85025; 87086; 93005; U0002; U0005; 36416; 81003; 81015

== ENCOUNTER 2021-04-17 03:00 | Inpatient (IN) | payer MEDICARE, MEDICAID ==
[2021-04-17 04:37] LABS: ALT (SGPT) 10 U/L (8-55); AST (SGOT) 22 U/L (5-34); Albumin 3.3 g/dL (3.4-4.8); Alkaline Phosphatase 80 U/L (40-110); Anion Gap 13 mmol/L (10-20); BUN (Urea Nitrogen) 37 mg/dL (8.4-25.7); CK (CPK) 13 U/L (30-200); Calc. Creatinine Clearance 0 mL/min (70-130); Carbon Dioxide 21 mmol/L (23-31); Chloride 105 mmol/L (98-107); Globulin 3.3 g/dL (2.4-3.5); Glucose 126 mg/dL (83-110); Potassium 5.3 mmol/L (3.5-5.1); Protein, Total 6.6 g/dL (5.8-8.1); Sodium 134 mmol/L (136-145)
[2021-04-17 05:06] LABS: Band 22 % (5-11); Hemoglobin 10.8 g/dL (14.0-18.0); Lymphocytes 13 % (21-51); MDiff Complete? YES; Mean Corpuscular HGB CONC 33.3 g/dL (32.0-36.0); Mean Corpuscular Hemoglobin 32.5 pg (27.0-31.0); Mean Corpuscular Volume 97.6 fL (78.0-98.0); Monocytes 2 % (0-10); Neutrophil 63 % (42-75); Platelet Count 111 thou/uL (130-400); Platelet Morphology Comment Appears Decreased; RBC Distribution Width 14.7 % (11.5-14.5); Red Blood Cell (RBC) Count 3.33 mill/uL (4.70-6.10); White Blood Cell (WBC) Count 7.7 thou/uL (4.8-10.8)
[2021-04-17] MEDS ORDERED: Cefepime 2 GM VIAL ONE (05:33)
[2021-04-17] MEDS ORDERED: Vancomycin 1 GM/200 ML BAG ONE (05:33)
[2021-04-17 07:19] LABS: Bacteria/HPF None Seen HPF (None Seen); Bilirubin Negative (Negative); Blood, Urine 2+ (Negative); Clarity Clear (Clear); Glucose, Urine (Dipstick) Normal (Negative); Ketone, Urine Negative (Negative); Leukocyte Negative Leu/uL (Negative); Nitrite Negative (Negative); Protein, Urine (Dipstick) 20 mg/dL (Neg-Trace); Specific Gravity, Urine 1.024 (1.002-1.036); Squamous Epithelial 0-3 HPF (0-3)
[2021-04-17] MEDS ORDERED: Dextrose 5% in Water 1,000 ML IV PRN (10:40)
[2021-04-17] MEDS ORDERED: Ondansetron PF 4 MG/2 ML Vial IVP PRN (10:40)
[2021-04-17] MEDS ORDERED: Dextrose 50% Abboject 50 ML SYRINGE SLOW IVP PRN (10:40)
[2021-04-17] MEDS ORDERED: HumaLOG 300 UNITS/3 ML VIAL SC PRN ×2 (10:40)
[2021-04-17] MEDS ORDERED: Ondansetron ODT 4 MG TAB PO PRN (10:40)
[2021-04-17 11:24] VITALS: BMI 26.6
[2021-04-17] MEDS: Sodium Chloride 0.9% 1,000 ML IV SCH ×3 (11:34→20:54)
[2021-04-17] MEDS: Cefepime 2 GM in Sodium Chloride 0.9% 100 ML IVPB SCH (20:50)
[2021-04-17] MEDS: Acetaminophen 325 MG TAB PO PRN (21:57)
[2021-04-18] MEDS: Acetaminophen 325 MG TAB PO PRN (04:50)
[2021-04-18] MEDS: Vancomycin 1 GM in Premix Bag 1 BAG IVPB SCH (05:17)
[2021-04-18] MEDS: Cefepime 2 GM in Sodium Chloride 0.9% 100 ML IVPB SCH ×2 (05:59→18:43)
[2021-04-18 07:44] LABS: Hemoglobin 9.4 g/dL (14.0-18.0); Mean Corpuscular HGB CONC 34.3 g/dL (32.0-36.0); Mean Corpuscular Hemoglobin 33.5 pg (27.0-31.0); Mean Corpuscular Volume 97.6 fL (78.0-98.0); Mean Platelet Volume 7.7 fL (7.4-10.4); Platelet Count 69 thou/uL (130-400); RBC Distribution Width 14.4 % (11.5-14.5); Red Blood Cell (RBC) Count 2.81 mill/uL (4.70-6.10)
[2021-04-18 08:03] LABS: Anion Gap 10 mmol/L (10-20); BUN (Urea Nitrogen) 41 mg/dL (8.4-25.7); Calc. Creatinine Clearance 52 mL/min (70-130); Calcium 8.2 mg/dL (7.8-10.44); Carbon Dioxide 24 mmol/L (23-31); Chloride 107 mmol/L (98-107); Glucose 97 mg/dL (83-110); Potassium 4.9 mmol/L (3.5-5.1); Sodium 136 mmol/L (136-145)
[2021-04-18 08:45] LABS: Band 17 % (5-11); Eosinophils 7 % (0-10); Lymphocytes 19 % (21-51); MDiff Complete? YES; Monocytes 13 % (0-10); Neutrophil 44 % (42-75); Platelet Morphology Comment Appears Decreased; Polychromasia SLIGHT = 2-3 cells (100X) (0-2/hpf)
[2021-04-18] MEDS ORDERED: Benzonatate 100 MG CAP PO PRN (09:06)
[2021-04-18] MEDS ORDERED: Loperamide HCl 2 MG CAP PO PRN (09:06)
[2021-04-18] MEDS ORDERED: Bisacodyl 5 MG TAB PO PRN (09:06)
[2021-04-18] MEDS ORDERED: Senokot S 8.6-50 MG TAB PO PRN (09:06)
[2021-04-18] MEDS ORDERED: Loratadine 10 MG TAB PO PRN (09:06)
[2021-04-18] MEDS ORDERED: GUAIFENESIN SF SOLN 200 MG/10 ML UDCUP PO PRN (09:06)
[2021-04-18] MEDS ORDERED: Cepastat Lozenges 1 LOZ PO PRN (09:06)
[2021-04-18] MEDS ORDERED: Calcium Carbonate 500 MG ChewTAB PO PRN (09:06)
[2021-04-18] MEDS ORDERED: hydrALAZINE 20 MG/ML VIAL SLOW IVP PRN (09:06)
[2021-04-18] MEDS ORDERED: Sodium Chloride 0.65% Nasal 44 ML BOT EA NARE PRN (09:06)
[2021-04-18] MEDS: HYDROcodone/Acetaminophen 5/325 mg Tablet PO PRN (11:17)
[2021-04-18] MEDS ORDERED: Ibuprofen 800 MG TAB PO SCH (15:30)
[2021-04-18] MEDS: Sodium Chloride 0.9% 1,000 ML IV SCH (17:18)
[2021-04-19] MEDS: Sodium Chloride 0.9% 1,000 ML IV SCH (03:04)
[2021-04-19] MEDS: HYDROcodone/Acetaminophen 5/325 mg Tablet PO PRN (03:04)
[2021-04-19] MEDS: Cefepime 2 GM in Sodium Chloride 0.9% 100 ML IVPB SCH (04:23)
[2021-04-19 06:00] LABS: Hemoglobin 9.2 g/dL (14.0-18.0); Mean Corpuscular HGB CONC 34.8 g/dL (32.0-36.0); Mean Corpuscular Hemoglobin 34.2 pg (27.0-31.0); Platelet Count 67 thou/uL (130-400); RBC Distribution Width 14.5 % (11.5-14.5); White Blood Cell (WBC) Count 3.4 thou/uL (4.8-10.8)
[2021-04-19] MEDS ORDERED: VANCOMYCIN 1.25 GM/250 ML BAG 1.25 GM in Premix Bag 1 BAG IVPB SCH (06:00)
[2021-04-19 06:06] LABS: Vancomycin, Trough 9.3 ug/mL
[2021-04-19 06:08] LABS: Anion Gap 8 mmol/L (10-20); BUN (Urea Nitrogen) 43 mg/dL (8.4-25.7); Calc. Creatinine Clearance 51 mL/min (70-130); Calcium 8.3 mg/dL (7.8-10.44); Carbon Dioxide 24 mmol/L (23-31); Chloride 107 mmol/L (98-107); Glucose 105 mg/dL (83-110); Potassium 5.1 mmol/L (3.5-5.1); Sodium 134 mmol/L (136-145)
[2021-04-19 06:31] LABS: Band 13 % (5-11); Eosinophils 10 % (0-10); Lymphocytes 27 % (21-51); MDiff Complete? YES; Monocytes 9 % (0-10); Neutrophil 41 % (42-75); Platelet Morphology Comment Appears Decreased
[2021-04-19] MEDS: Vancomycin 1 GM in Premix Bag 1 BAG IVPB SCH (06:32)
[2021-04-19 13:45] VITALS: BP 102/64; TEMP 98.3
== END 2021-04-19 17:00 | disposition home or self-care (01) | DRG 864 ==
LOC: ERS 03:00 → ERHOLD 05:36 → ONC 12:00 → OBSVTOIN 04-19 16:20
PROVIDERS: ADMIT Student in an Organized Health Care Education/Training Program; ATTEND Emergency Medicine
DX: R50.9 Fever, unspecified (principal); N17.9 Acute kidney failure, unspecified; D61.818 Other pancytopenia; K74.60 Unspecified cirrhosis of liver; E11.22 Type 2 diabetes mellitus with diabetic chronic kidney disease; E78.5 Hyperlipidemia, unspecified; J44.9 Chronic obstructive pulmonary disease, unspecified; R47.81 Slurred speech; N18.30 Chronic kidney disease, stage 3 unspecified; D63.1 Anemia in chronic kidney disease; I12.9 Hypertensive chronic kidney disease with stage 1 through stage 4 chronic kidney disease, or unspecified chronic kidney disease; Z79.51 Long term (current) use of inhaled steroids; Z79.899 Other long term (current) drug therapy; Z99.81 Dependence on supplemental oxygen; Z87.891 Personal history of nicotine dependence
CPT/HCPCS: 36415; 36416; 70450; 71045; 80048; 80053; 80202; 81003; 81015; 82550; 83605; 84484; 85025; 87040; 93005; 96366; 96376; G0378; J0692; J3370; J3490; Q0162

== ENCOUNTER 2021-07-24 10:31 | Day surgery (SDC) | payer MEDICARE, MEDICAID ==
[2021-07-24 10:41] LABS: #Eosinphils 0.2 thou/uL (0.0-0.7); #Monocytes 0.9 thou/uL (0.11-0.59); #Neutrophils 7.9 thou/uL (1.40-6.50); %Basophils 0.4 % (0.0-1.0); %Eosinophils 1.8 % (0.0-10.0); %Lymphocytes 9.7 % (21.0-51.0); %Monocytes 8.8 % (0.0-10.0); %Neutrophils 79.4 % (42.0-75.0); Hemoglobin 9.8 g/dL (14.0-18.0); Mean Corpuscular HGB CONC 31.6 g/dL (32.0-36.0); Mean Corpuscular Hemoglobin 32.6 pg (27.0-31.0); Mean Platelet Volume 6.5 fL (7.4-10.4); Platelet Count 204 thou/uL (130-400); RBC Distribution Width 15.6 % (11.5-14.5)
[2021-07-24] MEDS ORDERED: Lidocaine 1% PF 5 ML VIAL ONE (11:00)
[2021-07-24] MEDS ORDERED: Sodium Bicarbonate 2.5 MEQ/5 ML VIAL ONE (11:00)
[2021-07-24 11:06] LABS: INR-International Normal Ratio 1.2; PTT 37.3 sec (22.9-36.1); Prothrombin Time 15.8 sec (12.0-14.7)
[2021-07-24 12:17] VITALS: TEMP 98.2
[2021-07-24 13:18] VITALS: BP 112/50
== END 2021-07-24 12:40 | disposition home or self-care (01) ==
LOC: ULT 10:31
PROVIDERS: ATTEND Physician Assistant Medical
PROC: 0W9G3ZZ Drainage of Peritoneal Cavity, Percutaneous Approach (ICD-10-PCS; principal; 2021-07-24)
DX: K74.60 Unspecified cirrhosis of liver (principal); R18.8 Other ascites; R16.1 Splenomegaly, not elsewhere classified; N28.1 Cyst of kidney, acquired
CPT/HCPCS: 36415; 49083; 76700; 85025; 85610; 85730

== ENCOUNTER 2021-07-31 03:01 | Inpatient (IN) | payer MEDICARE, MEDICAID ==
[2021-07-31 04:24] LABS: Hemoglobin 7.5 g/dL (14.0-18.0); Mean Corpuscular HGB CONC 34.2 g/dL (32.0-36.0); Mean Corpuscular Hemoglobin 35.6 pg (27.0-31.0); Mean Platelet Volume 7.1 fL (7.4-10.4); Platelet Count 216 thou/uL (130-400); RBC Distribution Width 16.4 % (11.5-14.5); Red Blood Cell (RBC) Count 2.12 mill/uL (4.70-6.10); White Blood Cell (WBC) Count 18.4 thou/uL (4.8-10.8)
[2021-07-31 04:25] LABS: INR-International Normal Ratio 1.3; PTT 30.3 sec (22.9-36.1)
[2021-07-31 04:36] LABS: Band 8 % (5-11); Eosinophils 3 % (0-10); Lymphocytes 5 % (21-51); MDiff Complete? YES; Macrocytosis SLIGHT = 6-15 cells (100X) (0-5/hpf); Metamyelocyte 2 % (0-0); Monocytes 4 % (0-10); Neutrophil 78 % (42-75); Platelet Morphology Comment Appears Adequate; Polychromasia SLIGHT = 2-3 cells (100X) (0-2/hpf)
[2021-07-31 04:37] LABS: ALT (SGPT) 30 U/L (8-55); AST (SGOT) 46 U/L (5-34); Albumin 2.3 g/dL (3.4-4.8); Alkaline Phosphatase 166 U/L (40-110); Anion Gap 13 mmol/L (10-20); BUN (Urea Nitrogen) 92 mg/dL (8.4-25.7); Bilirubin, Total 2.7 mg/dL (0.2-1.2); Calc. Creatinine Clearance 0 mL/min (70-130); Calcium 8.4 mg/dL (7.8-10.44); Carbon Dioxide 25 mmol/L (23-31); Chloride 105 mmol/L (98-107); Globulin 3.6 g/dL (2.4-3.5); Glucose 122 mg/dL (83-110); Lipase 58 U/L (8-78); Potassium 5.4 mmol/L (3.5-5.1); Protein, Total 5.9 g/dL (5.8-8.1); Sodium 138 mmol/L (136-145)
[2021-07-31 05:34] LABS: Bacteria/HPF None Seen HPF (None Seen); Bilirubin Negative (Negative); Blood, Urine 3+ (Negative); Clarity Clear (Clear); Glucose, Urine (Dipstick) Normal (Negative); Ketone, Urine Negative (Negative); Leukocyte Negative Leu/uL (Negative); Nitrite Negative (Negative); Protein, Urine (Dipstick) Negative (Neg-Trace); RBC/HPF 21-50 HPF (0-3); Specific Gravity, Urine 1.018 (1.002-1.036); Squamous Epithelial 0-3 HPF (0-3); WBC/HPF 0-3 HPF (0-3)
[2021-07-31 06:17] LABS: SARS-CoV-2 NAA Rapid Test Not Detected (NotDetected)
[2021-07-31] MEDS ORDERED: Cefepime 2 GM VIAL ONE (06:42)
[2021-07-31] MEDS ORDERED: Vancomycin HCl 1 GM in Sodium Chloride 0.9% 250 ML 250 ML IVPB SCH (09:00)
[2021-07-31] MEDS ORDERED: Vancomycin 1 GM/200 ML BAG ONE (09:50)
[2021-07-31] MEDS: Nadolol 40 MG TAB PO SCH (10:14)
[2021-07-31] MEDS: Vancomycin 1 GM in Premix Bag 1 BAG IVPB SCH (10:14)
[2021-07-31] MEDS ORDERED: Pantoprazole 80 MG in Sodium Chloride 0.9% 100 ML IVPB SCH (10:15)
[2021-07-31] MEDS ORDERED: Pantoprazole 80 MG, Admixture Fee 1 EACH in Sodium Chloride 0.9% 100 ML IVPB SCH (10:30)
[2021-07-31] MEDS ORDERED: Octreotide Acetate 1,250 MCG in Sodium Chloride 0.9% 250 ML 250 ML IVPB SCH (10:30)
[2021-07-31] MEDS ORDERED: Piperacillin/Tazobactam 2.25 GM in Sodium Chloride 0.9% 100 ML IVPB SCH (14:00)
[2021-07-31] MEDS ORDERED: Piperacillin/Tazobactam 3.375 GM VIAL ONE (14:07)
[2021-07-31] MEDS ORDERED: Sodium Chloride 0.9% 100 ML ONE (14:07)
[2021-07-31] MEDS: Albumin 25% 25 GM/100 ML BOT IVPB SCH ×3 (16:00→23:42)
[2021-07-31] MEDS ORDERED: Midazolam HCl 2 mg/2 ml Vial ONE (17:30)
[2021-07-31] MEDS ORDERED: Ketamine 50 MG/ML (10ML VIAL) ONE (17:30)
[2021-07-31] MEDS ORDERED: PROPOFOL 200 MG/20 ML VIAL ONE (17:39)
[2021-07-31] MEDS ORDERED: PHENYLEPHRINE-NS 100 MCG/ML 10 ML SYRINGE ONE (17:39)
[2021-07-31] MEDS ORDERED: Ondansetron HCl/PF 4 MG/2 ML Vial IVP PRN (18:13)
[2021-07-31] MEDS ORDERED: Promethazine HCl 25 MG/ML VIAL IM PRN (18:13)
[2021-07-31] MEDS ORDERED: Promethazine HCl 25 MG/ML VIAL IVPB PRN (18:13)
[2021-07-31 19:08] LABS: Sodium, Urine 25 mmol/L (Not Available); Urea Nitrogen, Random Urine 675 mg/dl
[2021-07-31 19:09] LABS: Creatinine, Urine 162.92 mg/dL (63-166)
[2021-07-31 21:16] LABS: Iron 49 ug/dL (65-175); Iron Binding Capacity, Total 161 mcg/dL (261-462)
[2021-07-31 21:52] LABS: #Eosinphils 0.1 thou/uL (0.0-0.7); #Lymphocytes 1.3 thou/uL (1.20-3.40); #Monocytes 1.1 thou/uL (0.11-0.59); #Neutrophils 7.9 thou/uL (1.40-6.50); %Eosinophils 0.8 % (0.0-10.0); %Lymphocytes 12.2 % (21.0-51.0); %Monocytes 10.6 % (0.0-10.0); %Neutrophils 76.3 % (42.0-75.0); Hemoglobin 6.8 g/dL (14.0-18.0); Mean Corpuscular HGB CONC 34.4 g/dL (32.0-36.0); Mean Corpuscular Hemoglobin 35.3 pg (27.0-31.0); Mean Platelet Volume 6.8 fL (7.4-10.4); Platelet Count 134 thou/uL (130-400); RBC Distribution Width 17.1 % (11.5-14.5); Red Blood Cell (RBC) Count 1.94 mill/uL (4.70-6.10); White Blood Cell (WBC) Count 10.4 thou/uL (4.8-10.8)
[2021-07-31] MEDS: Pantoprazole 40 MG VIAL IVP SCH (22:20)
[2021-08-01] MEDS: Piperacillin/Tazobactam 3.375 GM in Sodium Chloride 0.9% 100 ML IVPB SCH ×3 (01:12→15:04)
[2021-08-01 03:14] VITALS: BMI 27.3
[2021-08-01] MEDS ORDERED: FLU VACC QS2021-22(65YR UP)/PF 240 MCG/0.7 ML SYRINGE IM ONE (03:30)
[2021-08-01] MEDS: Albumin 25% 25 GM/100 ML BOT IVPB SCH ×4 (04:42→21:00)
[2021-08-01] MEDS: Vancomycin 1 GM in Premix Bag 1 BAG IVPB SCH (08:24)
[2021-08-01] MEDS: Pantoprazole 40 MG VIAL IVP SCH ×2 (08:25→21:00)
[2021-08-01] MEDS: Nadolol 40 MG TAB PO SCH (08:25)
[2021-08-01 08:36] LABS: Vancomycin, Trough 8.8 ug/mL
[2021-08-01 08:37] LABS: ALT (SGPT) 23 U/L (8-55); AST (SGOT) 31 U/L (5-34); Albumin 2.8 g/dL (3.4-4.8); Alkaline Phosphatase 119 U/L (40-110); Anion Gap 10 mmol/L (10-20); BUN (Urea Nitrogen) 86 mg/dL (8.4-25.7); Bilirubin, Total 2.6 mg/dL (0.2-1.2); Calc. Creatinine Clearance 33 mL/min (70-130); Calcium 8.6 mg/dL (7.8-10.44); Carbon Dioxide 27 mmol/L (23-31); Chloride 112 mmol/L (98-107); Globulin 2.7 g/dL (2.4-3.5); Glucose 100 mg/dL (83-110); Potassium 4.8 mmol/L (3.5-5.1); Protein, Total 5.5 g/dL (5.8-8.1); Sodium 144 mmol/L (136-145)
[2021-08-01] MEDS ORDERED: Heparin 5,000 UNITS/ML VIAL SC SCH (09:00)
[2021-08-01 09:08] LABS: #Eosinphils 0.2 thou/uL (0.0-0.7); #Lymphocytes 0.6 thou/uL (1.20-3.40); #Monocytes 0.6 thou/uL (0.11-0.59); #Neutrophils 4.2 thou/uL (1.40-6.50); %Lymphocytes 11.2 % (21.0-51.0); %Neutrophils 74.8 % (42.0-75.0); Hemoglobin 7.2 g/dL (14.0-18.0); MDiff Complete? YES; Macrocytosis SLIGHT = 6-15 cells (100X) (0-5/hpf); Mean Corpuscular HGB CONC 34.7 g/dL (32.0-36.0); Mean Corpuscular Hemoglobin 34.7 pg (27.0-31.0); Mean Platelet Volume 6.9 fL (7.4-10.4); Platelet Count 109 thou/uL (130-400); Platelet Morphology Comment Appears Decreased; Polychromasia SLIGHT = 2-3 cells (100X) (0-2/hpf); RBC Distribution Width 17.4 % (11.5-14.5); Red Blood Cell (RBC) Count 2.08 mill/uL (4.70-6.10); White Blood Cell (WBC) Count 5.6 thou/uL (4.8-10.8)
[2021-08-01] MEDS ORDERED: Lidocaine 1% PF 5 ML VIAL ONE (14:37)
[2021-08-01] MEDS ORDERED: Sodium Bicarbonate 2.5 MEQ/5 ML VIAL ONE (14:37)
[2021-08-01] MEDS ORDERED: Midodrine HCl 5 MG TAB PO SCH (15:00)
[2021-08-01] MEDS: Midodrine HCl 5 MG TAB PO SCH ×2 (15:04→20:59)
[2021-08-01 16:18] LABS: Hemoglobin 8.5 g/dL (14.0-18.0)
[2021-08-01 21:07] LABS: Hemoglobin 7.7 g/dL (14.0-18.0)
[2021-08-01] MEDS ORDERED: diphenhydrAMINE 25 MG CAP PO SCH (21:30)
[2021-08-02] MEDS: Piperacillin/Tazobactam 3.375 GM in Sodium Chloride 0.9% 100 ML IVPB SCH ×4 (00:25→22:56)
[2021-08-02] MEDS: Albumin 25% 25 GM/100 ML BOT IVPB SCH ×4 (04:29→20:41)
[2021-08-02] MEDS: Midodrine HCl 5 MG TAB PO SCH ×3 (08:07→20:40)
[2021-08-02] MEDS: Pantoprazole 40 MG VIAL IVP SCH ×2 (08:07→20:40)
[2021-08-02 09:03] LABS: Hemoglobin 7.6 g/dL (14.0-18.0)
[2021-08-02 09:22] LABS: Vancomycin, Trough 14.3 ug/mL
[2021-08-02] MEDS: Vancomycin 1 GM in Premix Bag 1 BAG IVPB SCH (09:47)
[2021-08-02 10:33] LABS: Hemoglobin 7.5 g/dL (14.0-18.0)
[2021-08-02 11:29] LABS: ALT (SGPT) 20 U/L (8-55); AST (SGOT) 23 U/L (5-34); Albumin 3.6 g/dL (3.4-4.8); Alkaline Phosphatase 108 U/L (40-110); Anion Gap 10 mmol/L (10-20); BUN (Urea Nitrogen) 73 mg/dL (8.4-25.7); Bilirubin, Total 2.1 mg/dL (0.2-1.2); Calc. Creatinine Clearance 32 mL/min (70-130); Calcium 8.5 mg/dL (7.8-10.44); Carbon Dioxide 24 mmol/L (23-31); Chloride 113 mmol/L (98-107); Globulin 2.6 g/dL (2.4-3.5); Glucose 134 mg/dL (83-110); Potassium 5.3 mmol/L (3.5-5.1); Protein, Total 6.2 g/dL (5.8-8.1); Sodium 142 mmol/L (136-145)
[2021-08-02] MEDS ORDERED: Lidocaine 1% PF 5 ML VIAL ONE (12:48)
[2021-08-02] MEDS ORDERED: Sodium Bicarbonate 2.5 MEQ/5 ML VIAL ONE (12:48)
[2021-08-02 14:59] LABS: RBC Count-Automated (BF) 1433 /cu.mm; WBC/Nucleated-Auto (BF) 385 uL
[2021-08-02 15:06] LABS: BF Color Yellow; Body Fluid Source Ascites Body Fluid; Clarity Hazy (Clear); Tube # EDTA
[2021-08-02 15:39] LABS: BF Segmented Neutrophils 31 %; Lymphocytes 21 %
[2021-08-02 15:40] LABS: Cell Count Non Hematic 47 %; Eosinophils 1 %
[2021-08-02] MEDS: HYDROcodone/Acetaminophen 5/325 mg Tablet PO PRN (22:52)
[2021-08-03 07:08] LABS: Hemoglobin 7.6 g/dL (14.0-18.0); Mean Corpuscular HGB CONC 34.2 g/dL (32.0-36.0); Mean Corpuscular Hemoglobin 34.5 pg (27.0-31.0); Mean Platelet Volume 7.2 fL (7.4-10.4); Platelet Count 102 thou/uL (130-400); White Blood Cell (WBC) Count 4.4 thou/uL (4.8-10.8)
[2021-08-03 07:23] LABS: ALT (SGPT) 16 U/L (8-55); AST (SGOT) 24 U/L (5-34); Albumin 3.5 g/dL (3.4-4.8); Alkaline Phosphatase 121 U/L (40-110); Anion Gap 11 mmol/L (10-20); BUN (Urea Nitrogen) 67 mg/dL (8.4-25.7); Bilirubin, Total 1.7 mg/dL (0.2-1.2); Calc. Creatinine Clearance 32 mL/min (70-130); Calcium 8.2 mg/dL (7.8-10.44); Carbon Dioxide 27 mmol/L (23-31); Chloride 112 mmol/L (98-107); Globulin 2.4 g/dL (2.4-3.5); Glucose 120 mg/dL (83-110); Potassium 4.9 mmol/L (3.5-5.1); Protein, Total 5.9 g/dL (5.8-8.1); Sodium 145 mmol/L (136-145)
[2021-08-03] MEDS: Piperacillin/Tazobactam 3.375 GM in Sodium Chloride 0.9% 100 ML IVPB SCH ×2 (08:44→18:27)
[2021-08-03] MEDS: Midodrine HCl 5 MG TAB PO SCH ×3 (08:45→22:06)
[2021-08-03] MEDS: Pantoprazole 40 MG VIAL IVP SCH ×2 (08:46→22:09)
[2021-08-03] MEDS: Vancomycin 1 GM in Premix Bag 1 BAG IVPB SCH ×2 (08:50→14:22)
[2021-08-03] MEDS: Albumin 25% 25 GM/100 ML BOT IVPB SCH ×2 (14:30→22:14)
[2021-08-03] MEDS: hydrOXYzine 25 MG TAB PO PRN ×2 (14:30→22:23)
[2021-08-03] MEDS: Octreotide Acetate 100 MCG/ML VIAL SC SCH ×2 (14:36→22:10)
[2021-08-03 15:44] LABS: Creatinine, Urine 118.42 mg/dL (63-166); Sodium, Urine Less than 20 mmol/L (Not Available); Urea Nitrogen, Random Urine 703 mg/dl
[2021-08-03] MEDS ORDERED: Vancomycin 1 GM in Premix Bag 1 BAG IVPB SCH (16:00)
[2021-08-04] MEDS: Piperacillin/Tazobactam 3.375 GM in Sodium Chloride 0.9% 100 ML IVPB SCH (03:49)
[2021-08-04] MEDS: Octreotide Acetate 100 MCG/ML VIAL SC SCH ×3 (06:48→21:46)
[2021-08-04] MEDS: Albumin 25% 25 GM/100 ML BOT IVPB SCH ×3 (06:48→21:43)
[2021-08-04 07:07] LABS: ALT (SGPT) 18 U/L (8-55); AST (SGOT) 28 U/L (5-34); Albumin 3.6 g/dL (3.4-4.8); Alkaline Phosphatase 124 U/L (40-110); Anion Gap 12 mmol/L (10-20); BUN (Urea Nitrogen) 65 mg/dL (8.4-25.7); Bilirubin, Total 1.7 mg/dL (0.2-1.2); Calc. Creatinine Clearance 31 mL/min (70-130); Calcium 8.4 mg/dL (7.8-10.44); Carbon Dioxide 23 mmol/L (23-31); Chloride 112 mmol/L (98-107); Globulin 2.5 g/dL (2.4-3.5); Glucose 121 mg/dL (83-110); Potassium 5.4 mmol/L (3.5-5.1); Protein, Total 6.1 g/dL (5.8-8.1); Sodium 142 mmol/L (136-145)
[2021-08-04] MEDS: Pantoprazole 40 MG VIAL IVP SCH ×2 (08:19→21:44)
[2021-08-04] MEDS: Midodrine HCl 5 MG TAB PO SCH ×3 (08:19→21:42)
[2021-08-04] MEDS: Cefdinir 300 MG CAP PO SCH ×2 (11:03→21:42)
[2021-08-04] MEDS ORDERED: Magnevist 469MG/ML 20 ML VIAL ONE (12:12)
[2021-08-04 16:55] LABS: Anion Gap 10 mmol/L (10-20); BUN (Urea Nitrogen) 61 mg/dL (8.4-25.7); Calc. Creatinine Clearance 31 mL/min (70-130); Calcium 8.6 mg/dL (7.8-10.44); Carbon Dioxide 27 mmol/L (23-31); Chloride 111 mmol/L (98-107); Glucose 132 mg/dL (83-110); Potassium 5.2 mmol/L (3.5-5.1); Sodium 143 mmol/L (136-145)
[2021-08-04] MEDS ORDERED: Albuterol Sulfate 1.25 MG/3 ML NEB INH SCH (21:00)
[2021-08-05] MEDS ORDERED: Metoclopramide HCl 10 MG/2 ML VIAL IVP PRN (01:31)
[2021-08-05] MEDS: Albuterol Sulfate 1.25 MG/3 ML NEB NEB SCH ×6 (02:14→14:31)
[2021-08-05] MEDS: Albumin 25% 25 GM/100 ML BOT IVPB SCH ×4 (04:26→21:27)
[2021-08-05] MEDS: Octreotide Acetate 100 MCG/ML VIAL SC SCH ×3 (06:33→21:28)
[2021-08-05 07:48] LABS: ALT (SGPT) 16 U/L (8-55); AST (SGOT) 32 U/L (5-34); Albumin 3.9 g/dL (3.4-4.8); Alkaline Phosphatase 138 U/L (40-110); Anion Gap 11 mmol/L (10-20); BUN (Urea Nitrogen) 63 mg/dL (8.4-25.7); Bilirubin, Total 1.7 mg/dL (0.2-1.2); Calc. Creatinine Clearance 32 mL/min (70-130); Calcium 8.6 mg/dL (7.8-10.44); Carbon Dioxide 25 mmol/L (23-31); Chloride 111 mmol/L (98-107); Globulin 2.4 g/dL (2.4-3.5); Glucose 204 mg/dL (83-110); Potassium 4.9 mmol/L (3.5-5.1); Protein, Total 6.3 g/dL (5.8-8.1); Sodium 142 mmol/L (136-145)
[2021-08-05 08:42] LABS: Anisocytosis SLIGHT = 6-15 cells (100X) (0-5/hpf); Band 8 % (5-11); Hemoglobin 6.9 g/dL (14.0-18.0); Lymphocytes 14 % (21-51); MDiff Complete? YES; Macrocytosis SLIGHT = 6-15 cells (100X) (0-5/hpf); Mean Corpuscular HGB CONC 32.7 g/dL (32.0-36.0); Mean Corpuscular Hemoglobin 34.3 pg (27.0-31.0); Mean Platelet Volume 7.2 fL (7.4-10.4); Monocytes 1 % (0-10); Neutrophil 77 % (42-75); Platelet Count 81 thou/uL (130-400); Platelet Morphology Comment Appears Decreased; RBC Distribution Width 16.8 % (11.5-14.5); Red Blood Cell (RBC) Count 2.01 mill/uL (4.70-6.10); White Blood Cell (WBC) Count 4.4 thou/uL (4.8-10.8)
[2021-08-05] MEDS: Pantoprazole 40 MG VIAL IVP SCH ×2 (09:21→21:27)
[2021-08-05] MEDS: Cefdinir 300 MG CAP PO SCH ×2 (09:21→21:27)
[2021-08-05] MEDS: Midodrine HCl 5 MG TAB PO SCH ×3 (09:24→21:26)
[2021-08-05] MEDS: HYDROcodone/Acetaminophen 5/325 mg Tablet PO PRN (21:27)
[2021-08-06] MEDS: Octreotide Acetate 100 MCG/ML VIAL SC SCH ×3 (05:31→20:25)
[2021-08-06 08:01] LABS: #Eosinphils 0.1 thou/uL (0.0-0.7); #Lymphocytes 0.5 thou/uL (1.20-3.40); #Monocytes 0.7 thou/uL (0.11-0.59); #Neutrophils 4.6 thou/uL (1.40-6.50); %Basophils 0.2 % (0.0-1.0); %Eosinophils 1.5 % (0.0-10.0); %Lymphocytes 9.1 % (21.0-51.0); %Monocytes 11.5 % (0.0-10.0); %Neutrophils 77.6 % (42.0-75.0); Mean Corpuscular HGB CONC 33.4 g/dL (32.0-36.0); Mean Corpuscular Hemoglobin 33.8 pg (27.0-31.0); Mean Platelet Volume 7.8 fL (7.4-10.4); Platelet Count 89 thou/uL (130-400); RBC Distribution Width 16.4 % (11.5-14.5); Red Blood Cell (RBC) Count 2.35 mill/uL (4.70-6.10); White Blood Cell (WBC) Count 5.9 thou/uL (4.8-10.8)
[2021-08-06 08:12] LABS: Anion Gap 12 mmol/L (10-20); BUN (Urea Nitrogen) 65 mg/dL (8.4-25.7); Calc. Creatinine Clearance 29 mL/min (70-130); Calcium 8.8 mg/dL (7.8-10.44); Carbon Dioxide 24 mmol/L (23-31); Chloride 111 mmol/L (98-107); Glucose 93 mg/dL (83-110); Potassium 5.2 mmol/L (3.5-5.1); Sodium 142 mmol/L (136-145)
[2021-08-06] MEDS: Cefdinir 300 MG CAP PO SCH ×2 (09:01→20:24)
[2021-08-06] MEDS: Pantoprazole 40 MG VIAL IVP SCH ×2 (09:02→20:25)
[2021-08-06] MEDS: Midodrine HCl 5 MG TAB PO SCH ×3 (09:02→20:24)
[2021-08-06] MEDS ORDERED: Benzonatate 100 MG CAP PO PRN (16:30)
[2021-08-06] MEDS: HYDROcodone/Acetaminophen 5/325 mg Tablet PO PRN (16:52)
[2021-08-06] MEDS: hydrOXYzine 25 MG TAB PO PRN (17:09)
[2021-08-06] MEDS: guaiFENesin ER 600 MG TAB PO SCH (20:25)
[2021-08-07] MEDS: hydrOXYzine 25 MG TAB PO PRN ×2 (05:29→12:52)
[2021-08-07] MEDS: Octreotide Acetate 100 MCG/ML VIAL SC SCH ×3 (05:29→20:49)
[2021-08-07] MEDS: Nadolol 40 MG TAB PO SCH (08:55)
[2021-08-07] MEDS: Pantoprazole 40 MG VIAL IVP SCH ×2 (08:57→20:49)
[2021-08-07] MEDS: Cefdinir 300 MG CAP PO SCH ×2 (08:58→20:49)
[2021-08-07] MEDS: Midodrine HCl 5 MG TAB PO SCH ×3 (08:58→20:49)
[2021-08-07] MEDS: guaiFENesin ER 600 MG TAB PO SCH ×2 (08:59→20:49)
[2021-08-07 09:18] LABS: ALT (SGPT) 19 U/L (8-55); AST (SGOT) 28 U/L (5-34); Albumin 3.6 g/dL (3.4-4.8); Alkaline Phosphatase 146 U/L (40-110); Anion Gap 11 mmol/L (10-20); BUN (Urea Nitrogen) 63 mg/dL (8.4-25.7); Bilirubin, Total 2.7 mg/dL (0.2-1.2); Calc. Creatinine Clearance 31 mL/min (70-130); Calcium 9.3 mg/dL (7.8-10.44); Carbon Dioxide 28 mmol/L (23-31); Chloride 109 mmol/L (98-107); Globulin 2.4 g/dL (2.4-3.5); Glucose 131 mg/dL (83-110); Potassium 4.9 mmol/L (3.5-5.1); Sodium 143 mmol/L (136-145)
[2021-08-07 11:29] LABS: SARS-CoV-2 PCR by NAA Not Detected (NotDetected)
[2021-08-08] MEDS: Octreotide Acetate 100 MCG/ML VIAL SC SCH ×2 (05:32→14:44)
[2021-08-08 07:02] LABS: ALT (SGPT) 19 U/L (8-55); AST (SGOT) 28 U/L (5-34); Albumin 3.6 g/dL (3.4-4.8); Alkaline Phosphatase 167 U/L (40-110); Anion Gap 16 mmol/L (10-20); BUN (Urea Nitrogen) 69 mg/dL (8.4-25.7); Bilirubin, Total 2.1 mg/dL (0.2-1.2); Calc. Creatinine Clearance 32 mL/min (70-130); Calcium 8.9 mg/dL (7.8-10.44); Carbon Dioxide 24 mmol/L (23-31); Chloride 109 mmol/L (98-107); Globulin 2.7 g/dL (2.4-3.5); Glucose 144 mg/dL (83-110); Potassium 5.2 mmol/L (3.5-5.1); Protein, Total 6.3 g/dL (5.8-8.1); Sodium 144 mmol/L (136-145)
[2021-08-08] MEDS: Cefdinir 300 MG CAP PO SCH (08:17)
[2021-08-08] MEDS: guaiFENesin ER 600 MG TAB PO SCH (08:17)
[2021-08-08] MEDS: Pantoprazole 40 MG VIAL IVP SCH (08:23)
[2021-08-08] MEDS: Midodrine HCl 5 MG TAB PO SCH ×2 (10:05→14:43)
[2021-08-08] MEDS: Nadolol 40 MG TAB PO SCH (10:07)
[2021-08-08 16:53] VITALS: BP 124/58; TEMP 97.9
== END 2021-08-08 17:10 | disposition hospice, home (50) | DRG 432 ==
LOC: ERS 03:01 → ERHOLD 06:19 → SURG A 11:13 → T4-A 20:14
PROVIDERS: ADMIT Internal Medicine; ATTEND Internal Medicine
PROC: 30233N1 Transfusion of Nonautologous Red Blood Cells into Peripheral Vein, Percutaneous Approach (ICD-10-PCS; 2021-07-31)
PROC: 0W3P8ZZ Control Bleeding in Gastrointestinal Tract, Via Natural or Artificial Opening Endoscopic (ICD-10-PCS; 2021-07-31)
PROC: 0DB98ZX Excision of Duodenum, Via Natural or Artificial Opening Endoscopic, Diagnostic (ICD-10-PCS; 2021-07-31)
PROC: 0DB78ZX Excision of Stomach, Pylorus, Via Natural or Artificial Opening Endoscopic, Diagnostic (ICD-10-PCS; 2021-07-31)
PROC: 0W9G3ZZ Drainage of Peritoneal Cavity, Percutaneous Approach (ICD-10-PCS; principal; 2021-08-02)
DX: K74.60 Unspecified cirrhosis of liver (principal); Z66 Do not resuscitate; Z51.5 Encounter for palliative care; Z20.822 Contact with and (suspected) exposure to COVID-19; K72.00 Acute and subacute hepatic failure without coma; K31.811 Angiodysplasia of stomach and duodenum with bleeding; G93.41 Metabolic encephalopathy; J69.0 Pneumonitis due to inhalation of food and vomit; I81 Portal vein thrombosis; K76.7 Hepatorenal syndrome; R18.8 Other ascites; C22.0 Liver cell carcinoma; N17.9 Acute kidney failure, unspecified; K76.6 Portal hypertension; D62 Acute posthemorrhagic anemia; I85.10 Secondary esophageal varices without bleeding; N18.30 Chronic kidney disease, stage 3 unspecified; E78.2 Mixed hyperlipidemia; I12.9 Hypertensive chronic kidney disease with stage 1 through stage 4 chronic kidney disease, or unspecified chronic kidney disease; D63.1 Anemia in chronic kidney disease; E87.5 Hyperkalemia; E78.5 Hyperlipidemia, unspecified; E78.00 Pure hypercholesterolemia, unspecified; J44.9 Chronic obstructive pulmonary disease, unspecified; T50.0X5A Adverse effect of mineralocorticoids and their antagonists, initial encounter; K31.89 Other diseases of stomach and duodenum; K25.9 Gastric ulcer, unspecified as acute or chronic, without hemorrhage or perforation; K26.9 Duodenal ulcer, unspecified as acute or chronic, without hemorrhage or perforation; E11.22 Type 2 diabetes mellitus with diabetic chronic kidney disease; E86.9 Volume depletion, unspecified; L29.9 Pruritus, unspecified; I95.9 Hypotension, unspecified; K42.9 Umbilical hernia without obstruction or gangrene; Z87.891 Personal history of nicotine dependence; Z79.899 Other long term (current) drug therapy
CPT/HCPCS: 36415; 36416; 36430; 49083; 70450; 71045; 74183; 76705; 80048; 80053; 80202; 81003; 81015; 82105; 82140; 82570; 82728; 83540; 83550; 83690; 83880; 84156; 84300; 84540; 85014; 85018; 85025; 85027; 85060; 85610; 85730; 86850; 86900; 86901; 87070; 87086; 87205; 88305; 88312; 89051; 93005; 94640; 96374; A9579; C9113; J0692; J2250; J2354; J2543; J2704; J3370; J3490; J7620; P9016; P9047; U0002; U0003; U0005